=== PATIENT | male | born 1945 | race Caucasian/White ===

== ENCOUNTER → 2019-11-29 10:35 | Outpatient (BNVA) | payer MEDICARE, SELFPAY | PROVIDERS: PCP Nurse Practitioner Family; Visit Provider Family Medicine | DX: G20 Parkinson's disease (principal); G47.00 Insomnia, unspecified; J44.9 Chronic obstructive pulmonary disease, unspecified; I10 Essential (primary) hypertension; K21.9 Gastro-esophageal reflux disease without esophagitis | CPT/HCPCS: 80053; 80061; 85025 ==

== ENCOUNTER → 2020-05-28 11:42 | Outpatient (BNVA) | payer MEDICARE, SELFPAY | PROVIDERS: PCP Nurse Practitioner Family; Visit Provider Family Medicine | DX: E78.5 Hyperlipidemia, unspecified (principal); I10 Essential (primary) hypertension | CPT/HCPCS: 80053; 80061; 84443; 85025 ==

== ENCOUNTER → 2020-09-22 09:02 | Outpatient (BNVA) | payer MEDICARE, SELFPAY | PROVIDERS: PCP Nurse Practitioner Family; Visit Provider Nurse Practitioner Family | DX: Z20.828 Contact with and (suspected) exposure to other viral communicable diseases (principal) | CPT/HCPCS: 87635 ==

== ENCOUNTER → 2020-10-06 09:35 | Outpatient (BNVA) | payer MEDICARE, SELFPAY | PROVIDERS: PCP Nurse Practitioner Family; Visit Provider Family Medicine | DX: E78.2 Mixed hyperlipidemia (principal); I10 Essential (primary) hypertension; K21.9 Gastro-esophageal reflux disease without esophagitis | CPT/HCPCS: 80053; 80061; 84443; 85025 ==

== ENCOUNTER → 2021-02-10 10:58 | Outpatient (BNVA) | payer MEDICARE, SELFPAY | PROVIDERS: PCP Nurse Practitioner Family; Visit Provider Family Medicine | DX: J44.9 Chronic obstructive pulmonary disease, unspecified (principal); E78.2 Mixed hyperlipidemia; I10 Essential (primary) hypertension; Z86.79 Personal history of other diseases of the circulatory system | CPT/HCPCS: 80053; 80061; 84443 ==

== ENCOUNTER 2021-04-24 09:28 | Outpatient (CLI) | payer MEDICARE, SELFPAY ==
--- NOTE | 2021-04-24 10:22 | PC.NURSE ---
not able to complete stress test due to pt eating and a cup of coffee today. contacting scheduling for new date
--- NOTE | 2021-04-24 12:45 | USCV_ITS ---
Gely Tino Age: 75 Gender: M : 1945 Exam Date: 04/24/2021 10:23 Ordering Phys: Burak Vega MD ([email or web address]) Technologist: Amelie Jaeger Exam Location: [facility] [place] Indication: chest pain BP: 130 / 74 HR: 71 Rhythm: Sinus Technical Quality: Adequate MEASUREMENTS (Male / Female) Normal Values 2D ECHO LV Diastolic Diameter PLAX 4.8 cm 4.2 - 5.9 / 3.9 - 5.3 cm LV Systolic Diameter PLAX 3.5 cm IVS Diastolic Thickness 1.8 cm 0.6 - 1.0 / 0.6 - 0.9 cm IVS Systolic Thickness 2.6 cm LVPW Diastolic Thickness 1.5 cm 0.6 - 1.0 / 0.6 - 0.9 cm LVPW Systolic Thickness 1.7 cm LVOT Diameter 2.0 cm LV Ejection Fraction 2D Teich 54.1 % LV Ejection Fraction MOD 2C 59.4 % LV Ejection Fraction 2C AL 59.1 % LA Diameter 3.5 cm LA Width 3.4 cm LA Height 5.1 cm RA Width 4.1 cm RA Height 4.5 cm Aorta at Sinotubular Diameter 3.0 cm M-MODE Aortic Annulus Diameter 2.8 cm LA Ao Ratio MM 1.3 MV E Point Septal Separation 0.3 cm DOPPLER AV Peak Velocity 156.0 cm/s LVOT Peak Velocity 116.0 cm/s AV Area Cont Eq vti 2.4 cm squared AV Area Cont Eq pk 2.3 cm squared MV Peak Velocity 120.0 cm/s MV Area PHT 4.6 cm squared Mitral E to A Ratio 0.9 MV E' Velocity 39.5 cm/s Mitral E to MV E' Ratio 9.7 Mitral E to LV E' Lateral Ratio 10.8 Mitral E to LV E' Septal Ratio 9.0 TR Peak Velocity 287.6 cm/s TR Peak Gradient 33.1 mmHg TR Mean Velocity 236.3 cm/s TR Mean Gradient 23.6 mmHg TR Velocity Time Integral 90.6 cm TV Peak E Velocity 53.0 cm/s Right Atrial Pressure 3.0 mmHg Pulmonary Artery Systolic Pressu 36.1 mmHg PV Peak Velocity 78.0 cm/s RV Acceleration Time 0.1 s RV Ejection Time 0.3 s RV AcT/ET 0.2 FINDINGS Left Ventricle Normal left ventricular size and systolic function, EF 59 %. Mild left ventricular hypertrophy. No regional wall motion abnormalities. Grade I/IV diastolic dysfunction (abnormal relaxation filling pattern), normal to mildly elevated filling pressures. Right Ventricle The right ventricle is normal in size and function. Right Atrium The right atrium is normal in size. Left Atrium The left atrium is normal in size. Mitral Valve No gross abnormalities noted Aortic Valve No gross abnormalities noted Tricuspid Valve Trace tricuspid valve regurgitation. Estimated pulmonary artery peak systolic pressure was 36 mmHg Pulmonic Valve Pulmonic valve not well visualized. Pericardium Normal pericardium without effusion. Aorta Normal ascending aorta dimension. CONCLUSIONS Normal left ventricular size and systolic function, EF 59 %. Mild left ventricular hypertrophy. No regional wall motion abnormalities. Grade I/IV diastolic dysfunction (abnormal relaxation filling pattern), normal to mildly elevated filling pressures. Trace tricuspid valve regurgitation. Estimated pulmonary artery peak systolic pressure was 36 mmHg. There is no significant pericardial effusion. There are no intracardiac masses. No previous study is available for comparison. Dr Burak Vega MD [facility] (Electronically Signed) Final Date: 24 April 2021 15:46 S
== END 2021-04-24 09:29 | disposition home or self-care (01) ==
LOC: CDL 09:30
PROVIDERS: PCP Family Medicine; Visit Provider Internal Medicine Cardiovascular Disease
DX: Z86.79 Personal history of other diseases of the circulatory system (principal); R06.02 Shortness of breath; R53.83 Other fatigue; I07.1 Rheumatic tricuspid insufficiency
CPT/HCPCS: 93306

== ENCOUNTER 2021-05-01 06:32 | Outpatient (CLI) | payer MEDICARE, SELFPAY ==
[2021-05-01 06:54] VITALS: BMI 32.1
--- NOTE | 2021-05-01 07:09 | NMCV_ITS ---
NM ganesh perf SPECT r/s* [id number] Tino Hong Age: 75 Gender: M : 1945 Exam Date: 05/01/2021 07:52 Ordering Phys: Burak Vega MD ([email or web address]) Technologist: YASEMIN Beckman Exam Location: [facility] [place] Indications: SHORTNESS OF BREATH FATIGUE STRESS TEST Please see separate stress test report in [facility] for full findings IMAGE PROTOCOL Rest/Stress 1 Exercise Day Radiopharmaceutical Dose (mCi) Administration Site Administered by Rest: Tc-99m 11.0 IV YASEMIN Rodriguez Sestamibi Stress:Tc-99m 32.9 IV YASEMIN Rodriguez Sestamibi Rest: 05/01/2021 60 Discovery 630 Stress: 05/01/2021 15 Discovery 630 Radiopharmaceutical was injected at 91 % maximum heart rate. Images obtained in supine and prone position. SPECT RESULTS Technical Quality: Excellent Raw Data Analysis: Normal Image Corrections: No attenuation or motion correction applied Summed Stress Score: 1 Summed Rest Score: 5 Summed Difference Score: 0 PERFUSION FINDINGS Small areas of decreased tracer uptake were noted in the inferior, inferolateral and apical regions. No significant reversibility was noted in these regions. FUNCTIONAL RESULTS (calculated via Gated SPECT) Stress Image LV EF (%): 76 Stress EDV (mL):84 TID: 0.79 Stress ESV (mL):20 FUNCTIONAL FINDINGS: Segmental wall motion analysis revealing no gross wall motion abnormalities IMPRESSIONS 1. Myocardial perfusion imaging revealing small areas of persistent decreased tracer uptake in the inferior, inferolateral and apical regions suggestive of myocardial scarring versus attenuation artifact 2. Normal LV ejection fraction 76%. 3. LV wall motion analysis revealing no gross wall motion normalities. 4. Normal LV volume. No significant coronary ischemia, based on the above findings Dr Burak Vega MD [facility] (Electronically Signed) Final Date: 01 May 2021 18:02 S
--- NOTE | 2021-05-01 07:09 | ECG_ITS ---
[facility] Test Date: 2021-05-01 Pat Name: Tino Hong Department: Room: Gender: Male Hospice Community Liaison: : 1945 Requested By: Burak Vega Order Number: [id number] Jose A MD: Burak Vega M.D. Interpretive Statements NAME OF STUDY: EXERCISE SESTAMIBI STRESS TEST INDICATION: Sob/fatigue, PROCEDURE: The baseline electrocardiogram showed normal sinus rhythm with normal ST-Ts poor R wave progression. Nonspecific T wave changes. Minimal left axis deviation. At the baseline, the patient's blood pressure was 43/89 mm Hg with a heart rate of 77. The patient exercised for 4 minutes and 45 seconds on a standard Hieu protocol. Patient attained a maximum heart rate of 142 beats per minute( 97 % of the maximum predicted heart rate) with a blood pressure at the peak exercise of 212/81 mm Hg. The EKG at the peak exercise revealed no significant changes. Patient did not have any chest pain or any significant arrhythmis with the exercise Sestamibi was injected 1 minute prior to the peak exercise During the recovery phase, there were no new changes. Blood pressure at the end of the recovery phase was 197/71 mm Hg with a heart rate of 88 per minute. CONCLUSION: 1. No significant EKG changes with the [treadmill exercise 2. No exercise-induced chest pain or cardiac arrhythmia 3. Impaired exercise tolerance, attained a maximum of 7.0 METs 4. Sestamibi/Sestamibi perfusion results pending; see separate report. Electronically Signed On 05-01-2021 19:15:06 CDT by Burak Vega M.D. [id number]
[2021-05-01 08:48] VITALS: BP 160/78; PULSE 80
== END 2021-05-01 06:33 | disposition home or self-care (01) ==
LOC: CDL 06:38
PROVIDERS: PCP Family Medicine; Visit Provider Internal Medicine Cardiovascular Disease
DX: R06.02 Shortness of breath (principal); R53.83 Other fatigue
CPT/HCPCS: 78452; 93017; A9500

== ENCOUNTER → 2021-05-11 08:55 | Outpatient (BNVA) | payer MEDICARE, SELFPAY | PROVIDERS: PCP Family Medicine; Visit Provider Family Medicine | DX: J30.1 Allergic rhinitis due to pollen (principal); J45.50 Severe persistent asthma, uncomplicated | CPT/HCPCS: 82785; 85025 ==

== ENCOUNTER → 2022-02-10 08:44 | Outpatient (BNVA) | payer MEDICARE, SELFPAY | PROVIDERS: PCP Family Medicine; Visit Provider Family Medicine | DX: I10 Essential (primary) hypertension (principal); E78.2 Mixed hyperlipidemia; K21.9 Gastro-esophageal reflux disease without esophagitis; G20 Parkinson's disease; J44.9 Chronic obstructive pulmonary disease, unspecified; Z12.5 Encounter for screening for malignant neoplasm of prostate | CPT/HCPCS: 80053; 80061; 84443; 85025; G0103 ==

== ENCOUNTER 2022-09-21 06:00 | Outpatient (RCR) | payer MEDICARE, SELFPAY | END 2022-10-12 23:59 | disposition home or self-care (01) | LOC: TPT 06:00 | PROVIDERS: PCP Family Medicine; Visit Provider Orthopaedic Surgery | DX: M17.12 Unilateral primary osteoarthritis, left knee (principal) | CPT/HCPCS: 97110; 97163 ==

== ENCOUNTER 2022-10-13 06:00 | Outpatient (RCR) | payer MEDICARE, SELFPAY | END 2022-11-09 23:59 | disposition home or self-care (01) | LOC: TPT 06:00 | PROVIDERS: PCP Family Medicine; Visit Provider Orthopaedic Surgery | DX: M17.12 Unilateral primary osteoarthritis, left knee (principal) | CPT/HCPCS: 97110 ==

== ENCOUNTER 2022-11-10 06:00 | Outpatient (RCR) | payer MEDICARE, SELFPAY | END 2022-12-10 23:59 | disposition home or self-care (01) | LOC: TPT 06:00 | PROVIDERS: PCP Family Medicine; Visit Provider Orthopaedic Surgery | DX: M17.12 Unilateral primary osteoarthritis, left knee (principal) | CPT/HCPCS: 97110; 97164 ==

== ENCOUNTER → 2022-11-19 10:22 | Outpatient (BNVA) | payer MEDICARE, SELFPAY | PROVIDERS: PCP Family Medicine; Visit Provider Family Medicine | DX: G20 Parkinson's disease (principal); R29.6 Repeated falls; E78.2 Mixed hyperlipidemia; I10 Essential (primary) hypertension; K21.9 Gastro-esophageal reflux disease without esophagitis | CPT/HCPCS: 80053; 80061; 84443; 85025 ==

== ENCOUNTER 2022-12-06 06:00 | Outpatient (RCR) | payer MEDICARE, SELFPAY | END 2022-12-10 23:59 | disposition home or self-care (01) | LOC: SPT 06:00 | PROVIDERS: PCP Family Medicine; Visit Provider Family Medicine | DX: R42 Dizziness and giddiness (principal); R29.6 Repeated falls | CPT/HCPCS: 95992; 97161 ==

== ENCOUNTER 2022-12-11 06:00 | Outpatient (RCR) | payer MEDICARE, SELFPAY | END 2023-01-09 23:59 | disposition home or self-care (01) | LOC: SPT 06:00 | PROVIDERS: PCP Family Medicine; Visit Provider Family Medicine | DX: R42 Dizziness and giddiness (principal); H81.12 Benign paroxysmal vertigo, left ear | CPT/HCPCS: 97110 ==

== ENCOUNTER 2022-12-11 06:00 | Outpatient (RCR) | payer MEDICARE, SELFPAY | END 2023-01-09 23:59 | disposition home or self-care (01) | LOC: TPT 06:00 | PROVIDERS: PCP Family Medicine; Visit Provider Orthopaedic Surgery | DX: M17.12 Unilateral primary osteoarthritis, left knee (principal) | CPT/HCPCS: 97110 ==

== ENCOUNTER → 2023-02-10 11:33 | Outpatient (BNVA) | payer MEDICARE, SELFPAY | PROVIDERS: PCP Family Medicine; Referring Provider Family Medicine; Visit Provider Orthopaedic Surgery | DX: M54.50 Low back pain, unspecified (principal); M48.062 Spinal stenosis, lumbar region with neurogenic claudication | CPT/HCPCS: 72110; 99204 ==

== ENCOUNTER 2023-02-18 13:27 | Emergency (ER) | payer MEDICARE, SELFPAY ==
[2023-02-18] VITALS (7 sets, daily range): BP systolic 109–138; BP diastolic 52–88; PULSE 72–81; RESP 18; TEMP 36.3; O2SAT 92–98; BMI 30.7
--- NOTE | 2023-02-18 15:32 | PC.NURSE ---
WHILE IN LOBBY SPEAKING WITH PT. PT IS IN NAD. UPDATED HIM ON DELAYS AND COURSE OF CARE.
--- NOTE | 2023-02-18 16:59 | XRR_ITS ---
PROCEDURE INFORMATION: Exam: XR Lumbosacral Spine Exam date and time: 02/18/2023 5:07 PM Age: 77 years old Clinical indication: Injury or trauma; Fall; Other: Pain; Additional info: Lbp, failed surgeries, multiple recent falls TECHNIQUE: Imaging protocol: Radiologic exam of the lumbosacral spine. Views: 2 or 3 views. COMPARISON: CR XR lumbar spine min 4V [id number] 02/10/2023 11:38 AM FINDINGS: Bones/joints: There are extensive degenerative changes in the lumbar spine with narrowing of all of the intervertebral disc spaces and prominent anterior and left lateral osteophytes. There is mild scoliosis concave to the left in the lower lumbar spine. Degenerative osteophytes are also seen anteriorly and laterally in the lower thoracic spine. No acute fracture is demonstrated. Compared with 02/10/2023, findings are not significantly changed. Soft tissues: Unremarkable. Vasculature: There is atherosclerotic calcification of the abdominal aorta without evidence of aneurysm. XR/XR lumbar spine 2-3V* [id number] IMPRESSION: Degenerative changes. No acute fracture is identified.
--- NOTE | 2023-02-18 17:02 | ED_ITS ---
HPI - Fall General: Chief Complaint: Fall Stated Complaint: 3 falls today, back and left side issues Time Seen by Provider: 02/18/23 16:38 History of Present Illness: Patient presents to the ER with complaints of multiple falls today. Patient had left leg weakness worsening over the last week. Patient has been evaluated by Dr. ALEJANDRA and has an MRI scheduled in approximately 2 weeks. Patient has worsening low back pain that radiates down into his left leg all the way to his toes with numbness and tingling. Patient states his leg is weak and causing him to fall worse than normal. Patient denies any complaints anywhere else other than just normal achiness MD complaint: fall Onset (ago): week(s) Fall from: standing Fall witnessed: yes, by family Place fall occurred: home Loss of consciousness: None Context: tripped/slipped Review of Systems General: Reports: 10 or more systems reviewed and unremarkable except in HPI and below PFSH ED PFSH: Medical History COPD (chronic obstructive pulmonary disease) GERD (gastroesophageal reflux disease) Hyperlipidemia Hypertension Surgical History History of back surgery Family History Father CAD (coronary artery disease) Hypertension Sister CAD (coronary artery disease) Denies family history of Diabetes Clotting disorder Dementia Chronic kidney disease (CKD) Suicide Anesthesia complication Bleeding disorder Lung disease Cancer Stroke Social History Smoking and tobacco status: former smoker Alcohol intake: never Substance/Drug Use: never Lives independently: No Household members: spouse Marital status: Special abbe needs: No Physical Exam Const: COMMON NORMALS: no acute distress, average body habitus, patient oriented x3, no limitations, healthy appearing, alert and well nourished HENMT: COMMON NORMALS: normocephalic, atraumatic, hearing grossly normal bilaterally, external ears normal, Normal external nose present and moist oral mucous membranes HEAD & SCALP: normocephalic and atraumatic NOSE: Normal external nose present EXTERNAL EAR: Yes external ears normal Eye: COMMON NORMALS: Equal, round and reactive pupils present, EOMs intact bilaterally, conjunctivae normal and no scleral icterus CONJUNCTIVA: Yes conjunctivae normal PUPIL: Yes Equal, round and reactive pupils present Neck/C-Spine: COMMON NORMALS: full ROM, no lymphadenopathy, supple, no meningeal signs, no JVD and Thyroid normal THYROID: Thyroid normal Lymph: LYMPHATIC: no lymphadenopathy noted Chest: COMMONS NORMALS: normal inspection of the chest and normal palpation of entire chest wall Resp: COMMON NORMALS: normal respiratory effort, No retractions, No use of accessory muscles and clear to auscultation bilaterally AUSCULTATION: clear to auscultation bilaterally Cardio: COMMON NORMALS: no JVD, regular rate, regular rhythm, S1 normal heart sound present, S2 normal heart sound present, No gallops present (Cardio), No clicks present (Cardio), No murmurs present (Cardio) and No rub (Cardio) RATE: regular rate RHYTHM: regular rhythm HEART SOUNDS: S1 normal heart sound present and S2 normal heart sound present GI: COMMON NORMALS: Normal to inspection, nondistended, normoactive bowel sounds present, Soft to palpation, non-tender, No hepatosplenomegaly present and no masses PALPATION: Yes Soft to palpation and Yes No hepatosplenomegaly present : COMMON NORMALS: Yes no CVA tenderness BLADDER/KIDNEY EXAM: Yes no CVA tenderness Back/Pelvis: COMMON NORMALS: no CVA tenderness Neuro: COMMON NORMALS: patient oriented x3 SENSORIUM/ORIENTATION: Yes alert MENINGEAL SIGNS: Yes no meningeal signs Course Vital Signs: Vital signs: Vital Signs Temperature 97.3 F L 02/18/23 13:48 Pulse Rate 76 02/18/23 16:40 Respiratory Rate 18 02/18/23 13:48 Blood Pressure 121/52 02/18/23 17:00 Pulse Oximetry 92 02/18/23 17:00 Oxygen Delivery Me thod Room Air 02/18/23 16:40 MDM - Fall Medical Decision Making Patient presents with low back pain weakness of the left lower extremity and frequent falls. Patient is seen Dr. Schwartz and the orthopedic doc and has an MRI scheduled. Patient has fell multiple times over the last several days. Patient has [place] at home but he is afraid to take that because it makes him little disoriented and confused. Patient said he got relief when he was on a course of prednisone. X-rays were obtained which does show degenerative changes no acute fractures. Patient was given Toradol IM and Flexeril p.o. and he said he has moderate pain relief. Patient will be discharged home on tramadol and Flexeril and told to follow back up with Dr. Alejandra and have the MRI as previously scheduled. Medical Records I reviewed the patient's medical records. Lab Data I reviewed the patient's lab results. Radiology Impressions Lumbar Spine X-Ray 02/18/23 16:59 IMPRESSION: Degenerative changes. No acute fracture is identified. Discharge Plan Discharge Patient Disposition: Home Clinical Impression: Lumbar back pain with radiculopathy affecting left lower extremity Condition: Stable Prescriptions: New prednisone 50 mg tablet 50 mg PO DAILY 7 Days Qty: 7 0RF tramadol 50 mg tablet 50 mg PO Q8H PRN (Reason: pain) Qty: 20 0RF cyclobenzaprine 5 mg tablet 5 mg PO Q8H PRN (Reason: muscle spasm) Qty: 14 0RF No Action melatonin 10 mg capsule 10 mg PO DAILY Breo Ellipta 200-25 mcg/dose blister with device 1 inh inhalation DAILY Incruse Ellipta 62.5 mcg/actuation blister with device 1 inh inhalation DAILY coenzyme Q10 [Co Q-10] 200 mg capsule 200 mg PO DAILY mecobalamin (vitamin B12) 1,000 mcg tablet,disintegrating 1,000 mcg sublingual DAILY Rx Instructions: place tablet under tongue and allow to dissolve for at least30 secs before swallowing cholecalciferol (vitamin D3) 25 mcg (1,000 unit) capsule 25 mcg PO DAILY cetirizine [Zyrtec] 10 mg tablet 10 mg PO DAILY PRN carbidopa-levodopa 25-250 mg tablet 2 tab PO TID hydrocodone-acetaminophen 5-325 mg tablet 1 tab PO Q8H PRN (Reason: pain) 10 Days Qty: 30 0RF celecoxib [Celebrex] 200 mg capsule 200 mg PO BID Qty: 28 0RF Rx Instructions: hold mobic while on celebrex. tizanidine 4 mg tablet 4 mg PO .qhs PRN (Reason: muscle spasticity) Qty: 30 0RF lidocaine 4 % adhesive patch,medicated 1 patch topical BID PRN (Reason: pain) Qty: 10 1RF prednisone 20 mg tablet 20 mg PO DAILY Qty: 15 0RF Rx Instructions: 60mg on day 1,2,3 40mg on day 4,5 20mg on day 6,7 epinephrine 0.3 mg/0.3 mL auto-injector See Rx Instructions .ROUTE .COMPLEX Qty: 2 3RF Dose Instruction: injet 0.3 ML (ONE pen) INTRAMUSCULARLY every 15 MINUTES NEEDED FOR anaphylaxis. DO not exceed THREE doses PER episode Rx Instructions: injet 0.3 ML (ONE pen) INTRAMUSCULARLY every 15 MINUTES NEEDED FOR anaphylaxis. DO not exceed THREE doses PER episode albuterol sulfate 90 mcg/actuation HFA aerosol inhaler 2 puff inhalation Q6H PRN (Reason: shortness of breath or wheezing) Qty: 8.5 3RF fluticasone propionate 50 mcg/actuation spray,suspension See Rx Instructions .ROUTE .COMPLEX Qty: 16 12RF Dose Instruction: instill 2 sprays into each nostril once daily Rx Instructions: instill 2 sprays into each nostril once daily amlodipine 2.5 mg tablet See Rx Instructions .ROUTE .COMPLEX Qty: 90 0RF Dose Instruction: TAKE ONE TABLET BY MOUTH EVERY DAY Rx Instructions: TAKE ONE TABLET BY MOUTH EVERY DAY meloxicam 7.5 mg tablet See Rx Instructions .ROUTE .COMPLEX Qty: 180 0RF Dose Instruction: TAKE ONE TABLET BY MOUTH TWICE DAILY Rx Instructions: TAKE ONE TABLET BY MOUTH TWICE DAILY atorvastatin 20 mg tablet See Rx Instructions .ROUTE .COMPLEX Qty: 90 0RF Dose Instruction: TAKE ONE TABLET BY MOUTH EVERY DAY Rx Instructions: TAKE ONE TABLET BY MOUTH EVERY DAY trazodone 50 mg tablet See Rx Instructions .ROUTE .COMPLEX Qty: 90 0RF Dose Instruction: TAKE ONE TABLET BY MOUTH AT bedtime Rx Instructions: TAKE ONE TABLET BY MOUTH AT bedtime gabapentin 300 mg capsule See Rx Instructions .ROUTE .COMPLEX Qty: 90 0RF Dose Instruction: TAKE ONE CAPSULE BY MOUTH AT BEDTIME Rx Instructions: TAKE ONE CAPSULE BY MOUTH AT BEDTIME triamterene-hydrochlorothiazid 37.5-25 mg tablet See Rx Instructions .ROUTE .COMPLEX Qty: 30 5RF Dose Instruction: TAKE ONE TABLET BY MOUTH EVERY MORNING Rx Instructions: TAKE ONE TABLET BY MOUTH EVERY MORNING lisinopril-hydrochlorothiazide 20-12.5 mg tablet See Rx Instructions .ROUTE .COMPLEX Qty: 30 5RF Dose Instruction: TAKE ONE TABLET BY MOUTH EVERY DAY Rx Instructions: TAKE ONE TABLET BY MOUTH EVERY DAY omeprazole 20 mg capsule,delayed release(DR/EC) See Rx Instructions .ROUTE .COMPLEX Qty: 180 5RF Dose Instruction: TAKE ONE CAPSULE BY MOUTH twice a day Rx Instructions: TAKE ONE CAPSULE BY MOUTH twice a day Discharge Orders: Discharge ED (Routine); Ordered 02/18/23 Ordered By: Olu Qureshi Referrals: Meliza Pathak MD [Primary Care Provider] - 1 week Patient Instructions: Lumbar Radiculopathy (ED), Pain Management Activity Restrictions/Additional Instructions: Please keep your appointment with Dr. ALEJANDRA, please keep your previously scheduled MRI appointment. If your pain worsens or changes feel free to come back to the ER for further evaluation and treatment otherwise follow-up with your primary family practice doctor within 1 week. Coding Level of Care Code ED [employer] for Blanca Schmidt
[2023-02-18] MEDS: cyclobenzaprine 10 mg Tablet 5 MG PO (17:09)
[2023-02-18] MEDS: ketorolac 60 mg/2 mL INJ IM (17:10)
== END 2023-02-18 19:10 | disposition home or self-care (01) ==
PROVIDERS: Emergency Provider Emergency Medicine; PCP Family Medicine
DX: M54.16 Radiculopathy, lumbar region (principal); M54.50 Low back pain, unspecified; M62.81 Muscle weakness (generalized); R29.6 Repeated falls
CPT/HCPCS: 72100; 96372; 99284; J1885

== ENCOUNTER 2023-02-24 07:00 | Outpatient (CLI) | payer MEDICARE, SELFPAY ==
--- NOTE | 2023-02-24 07:15 | MR_ITS ---
WS: [id number] MRI LUMBAR SPINE NONCONTRAST TECHNIQUE: Sagittal T1, T2 and STIR imaging. Axial T1 and T2 imaging. CLINICAL INFORMATION: back pain COMPARISON: MRI 2009 FINDINGS: Mild lumbar curve. No acute compression. Disc bulging throughout the lumbar spine significantly progr essed compared to 2009 with progressed central canal stenosis. L1-L2: Disc bulging with small central protrusion. Moderate to severe central canal stenosis. This is worse compared to previous. Mild facet arthropathy. Mild RIGHT foraminal narrowing. L2-L3: Mild disc bulging with shallow central protrusion. Severe central canal stenosis. Mild facet a rthropathy. Mild LEFT and no significant RIGHT foraminal narrowing. L3-L4: Mild disc bulging results in severe central canal stenosis. Moderate facet arthropathy. Imping ement on the subarticular recess bilaterally. Moderate LEFT foraminal narrowing impinges the exiting LEFT L3 nerve root. L4-L5: Mild disc bulging with slight impingement traversing L5 nerve roots. Mild facet arthropathy. M ild LEFT greater than RIGHT foraminal narrowing. L5-S1: Mild disc bulging with impingement traversing RIGHT S1 nerve root. Mild facet arthropathy. Laura or RIGHT hemilaminectomy. Mild RIGHT foraminal narrowing. Visualized pelvic bony structures: Normal. Paravertebral soft tissues: Normal. Bilateral renal atrophy. T2 hyperintense lesion LEFT kidney partially evaluated measuring 4.9 CM incr eased since 2009 likely complex cyst. This can be followed up with ultrasound.. 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 This can be followed u p with cervical spine MRI. MR/MR lumbar spine wo con* [id number] IMPRESSION: 1. Mild lumbar curve. No acute compression. 2. Moderate to severe central canal stenosis L1-L2. Severe central canal steno sis L2-L3 and L3-L4 worse at L3-L4. This is new compared to previous 2009. 3. Prior RIGHT hemilaminectomy L5-S1 with slight narrowing of the RIGHT subart icular recess. 4. Mild central canal stenosis L4-L5 with narrowing of the subarticular recess . 5. Mild to moderate moderate foraminal narrowing worse at RIGHT L1-L2, LEFT L2 -L3, and RIGHT L4-L5. 6. Moderate to severe LEFT L3-L4 foraminal narrowing with impingement on the e xiting LEFT L3 nerve root. 7. Small syrinx visualized in the cervical cord at C6-T1 visualized also in 20 13. This can be followed up with cervical spine MRI. 8. Partially evaluated lesion LEFT kidney measuring 4.9 CM increased since 200 9 likely complex cyst. This can be followed up with ultrasound
== END 2023-02-24 07:01 | disposition home or self-care (01) ==
LOC: RAD 07:02
PROVIDERS: PCP Family Medicine; Visit Provider Orthopaedic Surgery
DX: M48.061 Spinal stenosis, lumbar region without neurogenic claudication (principal); M54.50 Low back pain, unspecified; Q61.8 Other cystic kidney diseases; G95.0 Syringomyelia and syringobulbia
CPT/HCPCS: 72148

== ENCOUNTER → 2023-03-01 15:06 | Outpatient (BNVA) | payer MEDICARE, SELFPAY | PROVIDERS: PCP Family Medicine; Visit Provider Orthopaedic Surgery | DX: M48.062 Spinal stenosis, lumbar region with neurogenic claudication (principal); Z01.818 Encounter for other preprocedural examination | CPT/HCPCS: 80053; 81003; 85025; 99214 ==

== ENCOUNTER 2023-03-14 09:33 | Inpatient (IN) | payer MEDICARE, SELFPAY ==
[2023-03-11 08:57] VITALS: BMI 30.4
[2023-03-14] VITALS (18 sets, daily range): BP systolic 87–138; BP diastolic 46–78; PULSE 62–99; RESP 15–18; TEMP 36.2–36.9; O2SAT 92–100
--- NOTE | 2023-03-14 | XR_ITS ---
WS: [id number] C-ARM RADIOGRAPHS LUMBAR SPINE; 5 IMAGES HISTORY: L2-L3; L3-4; L4-5 decompression COMPARISON: None available. Intraoperative imaging during decompression spinal surgery. Laminectomy defects are noted over what i s probably L3 and L4. XR/XR lumbar spine 2-3V* [id number] IMPRESSION: Intraoperative imaging during decompression surgery.
[2023-03-14] MEDS: sodium chloride 0.9% 1,000 ML 30 ML IV (06:08)
--- NOTE | 2023-03-14 06:29 | W.PM.OPSUD ---
Surgery/Procedure H&P Update DATE OF PROCEDURE: March 14, 2023 DATE H&P PERFORMED: 03/02/23 H&P UPDATE INFORMATION: I have reviewed H&P completed within last 30 days, I have examined patient prior to procedure and No changes to prior documentation PREOP DIAGNOSIS: Lumbar stenosis with neurogenic claudication PLANNED PROCEDURE: Operation Date: 03/14/23 07:00 Proposed Procedures p open decompression of L2-3 L3-4 L4-5:45651,08699,94213,M48.062(Not Applicable) - Ronny Lucio DO
[2023-03-14] MEDS: clindamycin 600 MG/50 ML PREMIX 100 MG IV ×3 (07:01→22:03)
[2023-03-14] MEDS: clindamycin 300 MG/50 ML PREMIX 100 MG IV (07:01)
[2023-03-14] MEDS: lidocaine-epi 2% 20 mL INJ INJECTION (07:37)
[2023-03-14] MEDS: vancomycin 1,000 MG SDV 1000 MG XX (07:38)
--- NOTE | 2023-03-14 08:13 | ANES.PREANE2 ---
Pre-Anesthetic Assessment Height/Weight: Height 1.8 m Weight 98.883 kg Temp Pulse Resp BP Pulse Ox O2 Del Method 97.1 F L 93 18 138/78 96 Room Air 03/14/23 06:07 03/14/23 06:07 03/14/23 06:07 03/14/23 06:07 03/14/23 06:07 03/14/23 06:09 Preop Diagnosis: Lumbar stenosis with neurogenic claudication Operation Date: 03/14/23 07:00 Proposed Procedures p open decompression of L2-3 L3-4 L4-5:40185,89308,43475,M48.062(Not Applicable) - Ronny Lucio, DO Familial anesthetic complications: none Was Beta Annette taken within 24 hours: N/A Was Clonidine taken within 24 hours: N/A Last intake: Intake Last Liquid Date 03/13/23 Last Liquid Time 17:00 Last Solid Date 03/13/23 Last Solid Time 17:00 Social No alcohol and No tobacco Exam alert, oriented x 3, clear to auscultation bilaterally and regular rate & rhythm Airway Submandibular: within normal limits Cervical ROM: Other (limited extension) Mallampati: Class III Dentition: full Pulmonary Chronic Obstructive Pulmonary Disease CV/HEM Hypertension GI Gastroesophageal Reflux Disease Metabolic Diabetes Mellitus, Hyperlipidemia and Morbid Obesity Musc/skel Lower Back Pain and Osteoarthritis/DJD Neuropsych Parkinson's Anesthetic Plan ASA status: 3 Anesthesia: General Medications/Allergies Home Medications Medication Instructions Recorded Confirmed Last Taken Type cholecalciferol (vitamin D3) 25 25 mcg PO DAILY 03/17/21 03/11/23 03/13/23 History mcg (1,000 unit) capsule coenzyme Q10 200 mg capsule (Co 200 mg PO DAILY 03/17/21 03/11/23 03/13/23 History Q-10) melatonin 10 mg capsule 10 mg PO DAILY 03/17/21 03/11/23 03/13/23 History epinephrine 0.3 mg/0.3 mL See Rx Instructions .Route 02/02/22 03/14/23 Unknown Rx injection, auto-injector .COMPLEX #2 ea carbidopa 25 mg-levodopa 250 mg 2 tab PO TID 02/10/22 03/11/23 03/14/23 05:30 History tablet albuterol sulfate 90 mcg/actuation 2 puff inhalation Q6H PRN 07/22/22 03/14/23 Unknown Rx aerosol inhaler shortness of breath or wheezing #8.5 grams fluticasone propionate 50 See Rx Instructions .Route 08/06/22 03/11/23 03/13/23 Rx mcg/actuation nasal .COMPLEX #16 grams spray,suspension triamterene 37.5 See Rx Instructions .Route 11/30/22 03/11/23 03/13/23 Rx mg-hydrochlorothiazide 25 mg tablet .COMPLEX #30 tabs lisinopril 20 See Rx Instructions .Route 12/23/22 03/11/23 03/13/23 Rx mg-hydrochlorothiazide 12.5 mg .COMPLEX #30 tabs tablet omeprazole 20 mg capsule,delayed See Rx Instructions .Route 12/23/22 03/11/23 03/13/23 Rx release .COMPLEX #180 caps tramadol 50 mg tablet 50 mg PO Q8H PRN pain #20 tabs 02/18/23 03/14/23 03/13/23 Rx amantadine HCl 100 mg capsule 100 mg PO Q8H 03/02/23 03/11/23 03/14/23 05:30 History amlodipine 2.5 mg tablet See Rx Instructions .Route 03/02/23 03/11/23 03/13/23 Rx .COMPLEX #90 tabs atorvastatin 20 mg tablet See Rx Instructions .Route 03/02/23 03/11/23 03/13/23 Rx .COMPLEX #90 tabs gabapentin 300 mg capsule See Rx Instructions .Route 03/02/23 03/11/23 03/13/23 Rx .COMPLEX #90 caps meloxicam 7.5 mg tablet See Rx Instructions .Route 03/02/23 03/11/23 03/07/23 Rx .COMPLEX #180 tabs trazodone 50 mg tablet See Rx Instructions .Route 03/02/23 03/11/23 03/13/23 Rx .COMPLEX #90 tabs Allergies Allergy/AdvReac Type Severity Reaction Status Date / Time budesonide [From Symbicort] Allergy Unknown Verified 03/14/23 06:01 formoterol [From Symbicort] Allergy Unknown Verified 03/14/23 06:01 ibuprofen [From Advil] Allergy Unknown Verified 03/14/23 06:01 iodine Allergy Unknown Verified 03/14/23 06:01 Penicillins Allergy Unknown Verified 03/14/23 06:01 Current Medications Generic Name Dose Route Start Last Admin Trade Name Emmanuel PRN Reason Stop Dose Admin Sodium Chloride 1,000 mls @ 30 mls/hr 03/14/23 06:00 03/14/23 06:08 Sodium Chloride 0.9% IV 03/15/23 05:59 30 mls/hr .Q24H YOSVANY Administration PFSH Anesthesia Medical History COPD (chronic obstructive pulmonary disease) GERD (gastroesophageal reflux disease) Hyperlipidemia Hypertension Surgical History History of back surgery Family History Father CAD (coronary artery disease) Hypertension Sister CAD (coronary artery disease) Denies family history of Diabetes Clotting disorder Dementia Chronic kidney disease (CKD) Suicide Anesthesia complication Bleeding disorder Lung disease Cancer Stroke Social History Smoking and tobacco status: former smoker Alcohol intake: never Substance/Drug Use: never Lives independently: No Household members: spouse Marital status: Special abbe needs: No Data Anesthesia Cardiac Studies: Echocardiogram 04/24/21 Sestamibi Stress Test (Cardiology) 05/01/21
--- NOTE | 2023-03-14 10:01 | PM.OP ---
Operative Report Date of procedure: March 14, 2023 Pre-op diagnosis: Preop Diagnosis Lumbar stenosis with neurogenic claudication Post-op diagnosis: same Procedure done: 1. L2/3 laminectomy with partial facetectomy 2. L3/4 laminectomy with partial facetectomy 3. L4/5 lamincetomy with partial facetectomy Surgeon: Ronny Lucio [employer] Farmworker: none Estimated blood loss (mL): 50 Procedure: 1. L2/3 laminectomy with partial facetectomy 2. L3/4 laminectomy with partial facetectomy 3. L4/5 lamincetomy with partial facetectomy Patient is brought to the procedure after undergoing anesthesia placed into the prone position. All his pressure well-padded. Patient's prepped draped normal sterile fashion. Wound was made from L2 down to the L4-5 facet joints. Subperiosteal dissection was made out to the facets. Retractors were placed tension was first brought to the L2-3 level. This was done by using high-speed bur rongeur to take down the spinous process high-speed bur to take down the lamina and thinned it out. And then the Kerrison rongeur was used to take down the lamina and medial aspect of facet joints. Ligamentum flavum was taken down from L2-L3. Once this was done bilaterally the L2 nerves were traced out the L2-3 foramen and the L3 nerve was traced around the L3 pedicle. Next tension was brought to the L3-4 level. Again the high-speed bur was used to take down the lamina of 3 and then the curved curettes Kerrison rongeurs were used to take down the remaining lamina and take down the ligamentum flavum from L3-L4 and then the nerves were traced out the L3-4 foramens. And the L4 nerves were traced around the L4 pedicle. Next there is brought to the L4-5 level again this was done by using high-speed bur taken down the lamina of L4 as well as taken down the medial aspect of the facet joints. Ligament plate was taken down from L4-L5. In the L5 nerve transfer on the L5 pedicles and the L4 nerves were traced out the L4-5 foramen. Wounds were irrigated deep drain was placed and wound was closed in layered fashion with 0 Vicryl 2-0 Vicryl and Monocryl suture. Sterile dressings were applied patient was transferred to the PACU in stable condition.
--- NOTE | 2023-03-14 10:24 | ANE.PACU2 ---
Inpatient post-anesthesia follow up: Airway intact: Yes Vital signs: Temperature 98.3 F Pulse Rate 71 Respiratory Rate 15 Blood Pressure 93/54 Pulse Oximetry 99 Oxygen Delivery Me thod Nasal Cannula Oxygen Flow Rate 2 Fraction of Inspir ed Oxygen Hydration adequate: Yes Nausea and vomiting: No Pain level: 3 Mental status: Baseline
[2023-03-14] MEDS: lactated ringers 1,000 ML 90 ML IV ×2 (10:26→21:29)
[2023-03-14] MEDS: carbidopa-levodopa 25-250mg Tablet 2 EACH PO ×2 (14:04→22:00)
[2023-03-14] MEDS: HYDROcodone-acetaminophen 5-325 mg Tablet PO ×2 (14:04→21:43)
[2023-03-14] MEDS: AMANTADINE HCL 100 MG 100 EACH PO (14:04)
[2023-03-14] MEDS: fluticasone nasal spray 16gm Btl 2 SPRAY NASAL (18:50)
[2023-03-14] MEDS: trazodone 50 mg Tablet PO (21:59)
[2023-03-14] MEDS: docusate sodium 100 mg Capsule PO (21:59)
[2023-03-14] MEDS: gabapentin 300 mg Capsule PO (22:00)
[2023-03-14] MEDS: NON-FORMULARY MEDICATION (Amantadine Hcl 100 MG) 100 EACH PO (22:01)
[2023-03-15 03:45] VITALS: BP 128/71; PULSE 78; RESP 18; TEMP 36.6; O2SAT 94
[2023-03-15] MEDS: carbidopa-levodopa 25-250mg Tablet 2 EACH PO (06:12)
[2023-03-15] MEDS: NON-FORMULARY MEDICATION (Amantadine Hcl 100 MG) 100 EACH PO (06:12)
[2023-03-15] MEDS: clindamycin 600 MG/50 ML PREMIX 100 MG IV (06:16)
[2023-03-15] MEDS: HYDROcodone-acetaminophen 5-325 mg Tablet PO (06:16)
[2023-03-15 08:00] VITALS: BP 138/78; PULSE 83; RESP 18; TEMP 36.4; O2SAT 94
[2023-03-15 08:08] VITALS: PULSE 98; RESP 16; O2SAT 98
[2023-03-15] MEDS: fluticasone nasal spray 16gm Btl 2 SPRAY NASAL (08:53)
[2023-03-15] MEDS: tamsulosin 0.4 mg Capsule PO (08:54)
[2023-03-15] MEDS: cholecalciferol (vitamin D3) 1,000 unit Tablet 1000 UNIT PO (09:24)
[2023-03-15] MEDS: lisinopril 20 mg Tablet PO (09:24)
[2023-03-15] MEDS: atorvastatin 40 mg Tablet 20 MG PO (09:24)
[2023-03-15] MEDS: docusate sodium 100 mg Capsule PO (09:24)
[2023-03-15] MEDS: pantoprazole DR 40 mg Tablet PO (09:24)
[2023-03-15] MEDS: magnesium hydroxide 30 mL UDC PO (11:50)
[2023-03-15 12:00] VITALS: BP 131/83; PULSE 95; RESP 17; TEMP 36.1; O2SAT 96
[2023-03-15 12:31] VITALS: BP 131/83; PULSE 95; RESP 17; TEMP 36.1; O2SAT 96
--- NOTE | 2023-03-16 16:03 | P.DS_ITS ---
Discharge Providers Date of Admission: 03/14/23 09:33 Date of Discharge: March 15, 2023 Attending Provider at Admission: Ronny Lucio DO Attending Provider at Discharge: Ronny Lucio DO Primary Care Provider: Meliza Pathak MD Reason for Visit Reason for Visit: M48.062 Physical Exam Urinary Catheter Management: Henry: Cath Placed During This Visit: yes, but has since been removed by the nurse Reason for Continuing Indwelling Catheter: Decision to DC Catheter Date Urinary Catheter Removed: 03/15/23 Time Urinary Catheter Discontinued: 09:30 Discharge Data Studies Completed and Pending Completed Studies During Hospitalization Category Date Time Status XR lumbar spine 2-3V* [id number] Routine Exams 03/14/23 Completed Radiology Impressions Lumbar Spine X-Ray 03/14/23 00:00 IMPRESSION: Intraoperative imaging during decompression surgery. Vitals Last Vital Signs Temp 97 F L 03/15/23 12:31 Pulse 95 03/15/23 12:31 Resp 17 03/15/23 12:31 BP 131/83 03/15/23 12:31 Pulse Ox 96 03/15/23 12:31 O2 Del Method Room Air 03/15/23 12:00 O2 Flow Rate 2 03/14/23 10:08 Discharge Plan Discharge Patient Disposition: Home Condition: Stable Prescriptions: New hydrocodone-acetaminophen 5-325 mg tablet 1 - 2 tab PO .Q4-6H Qty: 40 0RF Flomax 0.4 mg capsule 0.4 mg PO DAILY 7 Days Qty: 7 0RF Continued melatonin 10 mg capsule 10 mg PO DAILY coenzyme Q10 [Co Q-10] 200 mg capsule 200 mg PO DAILY cholecalciferol (vitamin D3) 25 mcg (1,000 unit) capsule 25 mcg PO DAILY carbidopa-levodopa 25-250 mg tablet 2 tab PO TID amantadine HCl 100 mg capsule 100 mg PO Q8H epinephrine 0.3 mg/0.3 mL auto-injector See Rx Instructions .ROUTE .COMPLEX Qty: 2 3RF Dose Instruction: injet 0.3 ML (ONE pen) INTRAMUSCULARLY every 15 MINUTES NEEDED FOR anaphylaxis. DO not exceed THREE doses PER episode Rx Instructions: injet 0.3 ML (ONE pen) INTRAMUSCULARLY every 15 MINUTES NEEDED FOR anaphylaxis. DO not exceed THREE doses PER episode albuterol sulfate 90 mcg/actuation HFA aerosol inhaler 2 puff inhalation Q6H PRN (Reason: shortness of breath or wheezing) Qty: 8.5 3RF fluticasone propionate 50 mcg/actuation spray,suspension See Rx Instructions .ROUTE .COMPLEX Qty: 16 12RF Dose Instruction: instill 2 sprays into each nostril once daily Rx Instructions: instill 2 sprays into each nostril once daily triamterene-hydrochlorothiazid 37.5-25 mg tablet See Rx Instructions .ROUTE .COMPLEX Qty: 30 5RF Dose Instruction: TAKE ONE TABLET BY MOUTH EVERY MORNING Rx Instructions: TAKE ONE TABLET BY MOUTH EVERY MORNING lisinopril-hydrochlorothiazide 20-12.5 mg tablet See Rx Instructions .ROUTE .COMPLEX Qty: 30 5RF Dose Instruction: TAKE ONE TABLET BY MOUTH EVERY DAY Rx Instructions: TAKE ONE TABLET BY MOUTH EVERY DAY omeprazole 20 mg capsule,delayed release(DR/EC) See Rx Instructions .ROUTE .COMPLEX Qty: 180 5RF Dose Instruction: TAKE ONE CAPSULE BY MOUTH twice a day Rx Instructions: TAKE ONE CAPSULE BY MOUTH twice a day atorvastatin 20 mg tablet See Rx Instructions .ROUTE .COMPLEX Qty: 90 0RF Dose Instruction: TAKE ONE TABLET BY MOUTH EVERY DAY Rx Instructions: TAKE ONE TABLET BY MOUTH EVERY DAY trazodone 50 mg tablet See Rx Instructions .ROUTE .COMPLEX Qty: 90 0RF Dose Instruction: TAKE ONE TABLET BY MOUTH AT bedtime Rx Instructions: TAKE ONE TABLET BY MOUTH AT bedtime gabapentin 300 mg capsule See Rx Instructions .ROUTE .COMPLEX Qty: 90 0RF Dose Instruction: TAKE ONE CAPSULE BY MOUTH AT BEDTIME Rx Instructions: TAKE ONE CAPSULE BY MOUTH AT BEDTIME amlodipine 2.5 mg tablet See Rx Instructions .ROUTE .COMPLEX Qty: 90 0RF Dose Instruction: TAKE ONE TABLET BY MOUTH EVERY DAY Rx Instructions: TAKE ONE TABLET BY MOUTH EVERY DAY meloxicam 7.5 mg tablet See Rx Instructions .ROUTE .COMPLEX Qty: 180 0RF Dose Instruction: TAKE ONE TABLET BY MOUTH TWICE DAILY Rx Instructions: TAKE ONE TABLET BY MOUTH TWICE DAILY tramadol 50 mg tablet 50 mg PO Q8H PRN (Reason: pain) Qty: 20 0RF Discharge Orders: Discharge Order (Routine); Ordered 03/15/23 Ordered By: Ronny Lucio Referrals: Ronny Lucio, DO [Physician] - 03/24/23 10:30 am (You follow up appointment with Dr. Lucio has been scheduled for March 24 at 10:30 am. If you have any question or need to reschedule please contact them at [phone].) Meliza Pathak MD [Primary Care Provider] - 03/22/23 3:00 pm (Your hospital follow up has been scheduled with Meliza Pathak for March 22 at 3:00 PM. If you have any questions or need to reschedule please contact them at [phone].) Discharge Diet: Advance as tolerated Discharge Activity: Limit activity as instructed Patient Instructions: Hydrocodone/Acetaminophen (By mouth), Tamsulosin (By mouth) (Flomax), Lumbar Spinal Stenosis (DC), Opioid Safety Activity Restrictions/Additional Instructions: Thank you for [facility] for your care! The following is a list of instructions, from your provider, to follow upon your discharge to ensure you have the optimal recovery from your recent injury orsurgery. Follow-up care is a srivastava part of your treatment and safety. Be sure to make and go to all appointments, and call your doctor if you are having problems. If you do not already have a follow-up appointment made, call Dr. Lucio office in the next 1-3 days to make follow up appointment for 2 weeks at [phone]. If the Henry remains we will see the patient on 03/17/2023 on the . In order to help remove the Henry. It is also a good idea to know your test results and keep a list of the medicines you take. Medications will be prescribed for you at your provider's discretion. These medications are to be used as instructed; if they are taken more often that prescribed they will not be refilled early and in most cases will not be refilled at all. > When a refill is needed,you should contact marylou kapoor 2-3 business days before your prescription runs out. Medications will NOT be refilled by parking regulation enforcement officer providers after hours! > Many pain medications contain Tylenol (Acetaminophen). Do not consume more than 4,000 mg of Tylenol per day in total with any combination ofmedications. > Pain medications can cause constipation. Please use an over the counter stool softener as directed, while taking pain medications. Consulty our local pharmacist with questions or recommendations on stool softeners. If constipation persists, contact our office or your primary care provider. > While under our care,you are not to receive pain medications or other controlled substances from any other provider unless our office is notified and approves. Any attempts to do so will result in refusal to prescribe any further pain medications and possible dismissal from our practice. ? Your wound and/or dressing should remain clean and dry for 2 days after surgery. On postoperative day 2 (48 hours after your surgery) the dressing (if present) should be removed and it is okay to shower and get the incision wet. Pad dry afterwards. No further dressing should be required from that point on. Do not put any creams or ointments on theincision > It is normal for there to be a small amount of discharge (bloody or blood tinged) present from a surgical wound for the first 1-3days. > The wound should be examined twice a day for signs of infection. Mild redness or bruising is to be expected but indications that an infection maybe starting would include; An increase in redness, swelling, or discharge, a foul odor present around the incision, and/or a fever greater than 101 ?F ? Showering is permitted, however we ask that you do not take a bath, sit in a whirlpool / Jacuzzi, or go swimming for 1 month. For only the first 2 days after surgery, lt wilt be necessary for you to cover your wound/dressing with plastic and tape to keep it dry. ? Walking is essential for the healing process after surgery. We would like you to slowly advance your walking. This should be done on rela tively flat clear ground (inside or out) or can be done on a treadmill. Remember this goal does not have to happen all at once, slowly increase your distance and duration. This can be broken into more more than one walk per day as tolerated. Patients who walk as directed after surgery rarely require Physical Therapy. In the unlikely event this issue arises your provider will direct hospital staff to make the appropriate arrangements. ? No lifting over 5 pounds {a gallon of milk) or bending/twisting until further notice. Each of these activities places an unnecessary amount of stress onto the body and can impede the delicate healing process. > Instead of bending at the waist, keep your back straight and bend at the knees. > Instead of twisting your torso, keep your back straight and turn your entire body with your feet. ? You may sleep in any position which makes you comfortable. Many patients find comfort sleeping in a reclining chair. It is not abnormal to have difficulty sleeping for the first several weeks following your surgery. We recommend trying Benadry! or Tylenol PM as directed to help with your sleeping difficulties. Both medications are over the counter and available withoutprescription. ? NO SMOKING!!! Smoking dramatically increases the probability of developing postoperative wound infections. ? Common complaints after lumbar and/or thoracic spine surgery include, but are not limited to: numbness and/or tingling in the legs, pain around the incision and surrounding tissues, muscle spasms, or stiffness of the middle to l ow back. Contact our office if these symptoms persist or if an acute change occurs. ? No driving for the first 3-5days, and not while taking narcotics [] until seen at your follow-up appointment and cleared. There are no restrictions for riding on short trips, however if you take a longer trip, arrangements should be made to make regular stops to get out of the vehicle and stretch . ? Swelling is an unfortunate event that will take place with any surgery and is the primary source of your postoperative discomfort. While walking and regular approved activities helps control inflammation, there are additional steps you can take to minimizeswelling. > Place ice over the surgical site and surrounding tissue for twenty minutes, followed by applying a low/medium heat (heating pad) for an additional twenty minutes every 1-2 hours as needed for painrelief. > You may use of over the counter anti-inflammatory medications (Ibuprofen, Motrin, Aleve, Advil, etc) as directed on the package label. These types of medicines wm significantly reduce the amount of discomfort you experience after surgery from swelling. It should be noted that if you have and allergy to any of these medications, or a history of ulcers or kidney disease you should consult you primary care provider prior to starting these medications. Discharge Attestations Time Spent in Discharge Care*: less than 30 min Quality Metrics Clinical Quality Measures [ No reported AMI, CVA or VTE this stay] Coding Level of Care Code Acute Code for Chg Fwd Diagnoses
== END 2023-03-15 12:30 | disposition home or self-care (01) | DRG 517 ==
LOC: MEDSURG 19:02
PROVIDERS: Admitting Provider Orthopaedic Surgery; PCP Family Medicine; Visit Provider Orthopaedic Surgery
PROC: 01NB0ZZ Release Lumbar Nerve, Open Approach (ICD-10-PCS; CPT 63005; principal; 2023-03-14 07:00)
DX: M48.062 Spinal stenosis, lumbar region with neurogenic claudication (principal); Z79.51 Long term (current) use of inhaled steroids; Z79.52 Long term (current) use of systemic steroids; Z79.891 Long term (current) use of opiate analgesic; J44.9 Chronic obstructive pulmonary disease, unspecified; K21.9 Gastro-esophageal reflux disease without esophagitis; E78.5 Hyperlipidemia, unspecified; I10 Essential (primary) hypertension; Z87.891 Personal history of nicotine dependence
CPT/HCPCS: 36415; 36416; 36569; 36592; 36600; 51702; 51798; 70450; 71045; 71275; 72100; 74018; 74176; 74177; 76000; 80048; 80051; 80053; 80061; 80069; 81001; 82330; 82550; 82803; 82805; 82962; 83036; 83605; 83690; 83735; 83880; 84100; 84145; 84443; 84484; 85007; 85025; 85362; 85378; 85384; 85610; 85730; 86140; 86618; 86666; 86704; 86706; 86757; 87040; 87070; 87077; 87086; 87186; 87205; 87340; 93005; 93306; 93970; 94002; 94003; 94640; 94664; 94799; 96361; 96374; 96376; 97110; 97116; 97161; 99285; C1751; C9113; J0131; J0171; J0610; J1100; J1170; J1200; J1642; J1644; J1720; J1940; J2060; J2250; J2371; J2405; J2704; J2765; J3010; J3370; J3475; J3490; J7030; J7040; J7042; J7050; J7060; J7070; J7120; P9046; Q3014; Q9967

== ENCOUNTER 2023-03-17 13:17 | Inpatient (IN) | payer MEDICARE, SELFPAY ==
[2023-03-17] VITALS (56 sets, daily range): BP systolic 68–133; BP diastolic 34–83; PULSE 98–136; RESP 12–33; TEMP 36.8–38.2; O2SAT 78–100; BMI 32.1
--- NOTE | 2023-03-17 13:27 | CT_ITS ---
WS: [id number] CT ABDOMEN PELVIS TECHNIQUE: Noncontrast CT of the abdomen and pelvis with coronal and sagittal reformatted images. CLINICAL INFORMATION: vomiting COMPARISON: None. DLP: 953.[address] scans at [facility] use at least one of these dose optimization techniques: automated e xposure control; mA and/or kV adjustment per patient size (includes targeted exams where dose is matc hed to clinical indication); or iterative reconstruction. FINDINGS: Marked distention of the stomach with air-fluid level. Moderate esophageal hiatal hernia with fluid i n the distal esophagus. Trace pleural fluid bilaterally. Bibasilar atelectasis. Fluid-filled dilated proximal small bowel with air-fluid levels in the mid abdomen extending into the pelvis. Small bowel loops measure up to 3.8 cm. Distal ileum appears decompressed. No definite focal transition point. Colon is decompressed. Sigmoid colon is decompressed. Normal noncontrast liver and gallbladder. Fatty atrophy of the pancreas. Atrophic spleen. Adrenal gla nds are normal. Atrophic kidneys bilaterally with simple LEFT renal cyst. Normal caliber abdominal ao rta. Aortic calcification. Tiny fat-containing inguinal hernia. Prostate calcification. Decompressive laminectomies in the lumbar spine L2-L4. Recent expected postoperative changes. No evid ence of retroperitoneal hematoma. CT/CT abdomen pelvis wo con [id number] IMPRESSION: 1. Markedly distended fluid-filled stomach with air-fluid level and moderate e sophageal hiatal hernia. Fluid in the distal esophagus. 2. Distended fluid-filled proximal small bowel likely due to adynamic ileus co nsidering recent surgery versus developing partial small bowel obstruction. Dis ashanti ileum appears decompressed. No definite transition point. 3. Colon appears decompressed. 4. Trace LEFT greater than RIGHT pleural fluid with bibasilar atelectasis. 5. Recent decompressive laminectomies L2-L4 with expected postoperative change s.
--- NOTE | 2023-03-17 13:34 | W.ED.NAVMDI ---
HPI - Nausea/Vomiting/Diarrhea General: Chief complaint: Nausea/Vomiting/Diarrhea Stated complaint: dehydrated Time Seen by Provider: 03/17/23 13:18 Source: patient and EMS Mode of arrival: EMS Limitations: no limitations History of Present Illness: 77-year-old male who had back surgery on Tuesday states that since then he has been able to tolerate any p.o. and has had no vomiting. He states he also has had some constipation he states he feels like he is dehydrated and is felt weak he is hypotensive here he denies any back pain denies any fevers. Associated nausea: Yes Associated symtoms: Reports nausea; Denies chest pain, dysuria or headache(s) Review of Systems Const: Denies: fever(s), chills, body aches or change in appetite Eyes: Denies: blurry vision or eye discomfort ENMT: Denies: throat pain or dental pain Card: Denies: chest pain Resp: Denies: dyspnea GI: Reports: nausea, vomiting and constipation : Denies: dysuria Musc: Denies: neck pain or back pain Skin/Breast: Denies: rash Neuro: Denies: headache(s) Psych: Denies: depression [place]/Lymph: Denies: easy bruising All/Imm: Denies: urticaria PFSH ED PFSH: Medical History COPD (chronic obstructive pulmonary disease) GERD (gastroesophageal reflux disease) Hyperlipidemia Hypertension Surgical History History of back surgery Family History Father CAD (coronary artery disease) Hypertension Sister CAD (coronary artery disease) Denies family history of Diabetes Clotting disorder Dementia Chronic kidney disease (CKD) Suicide Anesthesia complication Bleeding disorder Lung disease Cancer Stroke Social History Smoking and tobacco status: former smoker Alcohol intake: never Substance/Drug Use: never Lives independently: No Household members: spouse Marital status: Special abbe needs: No Physical Exam Const: COMMON NORMALS: patient oriented x3 HENMT: COMMON NORMALS: normocephalic and atraumatic HEAD & SCALP: normocephalic and atraumatic Eye: COMMON NORMALS: Equal, round and reactive pupils present and EOMs intact bilaterally PUPIL: Yes Equal, round and reactive pupils present Neck/C-Spine: COMMON NORMALS: full ROM and supple Chest: COMMONS NORMALS: normal inspection of the chest and normal palpation of entire chest wall Resp: COMMON NORMALS: normal respiratory effort, No retractions, No use of accessory muscles and clear to auscultation bilaterally AUSCULTATION: clear to auscultation bilaterally Cardio: COMMON NORMALS: regular rate, regular rhythm and No murmurs present (Cardio) RATE: regular rate RHYTHM: regular rhythm GI: COMMON NORMALS: Normal to inspection, nondistended, normoactive bowel sounds present, Soft to palpation, non-tender and no masses PALPATION: Yes Soft to palpation Extremity: COMMON NORMALS: normal to inspection and full ROM Neuro: COMMON NORMALS: patient oriented x3, moves all extremities and no focal motor deficits Psych: COMMON NORMALS: mental status grossly normal, Normal thought process present and cooperative THOUGHT PROCESS: Normal thought process present Skin: COMMON NORMALS: no rashes or lesions noted and no wounds GENERAL SKIN EXAM: no rashes or lesions noted Course Vital Signs: Vital signs: Vital Signs Temperature 98.3 F 03/17/23 13:19 Pulse Rate 104 H 03/17/23 14:12 Respiratory Rate 20 H 03/17/23 13:19 Blood Pressure 103/63 03/17/23 14:12 Pulse Oximetry 93 03/17/23 14:12 Oxygen Delivery Me thod Room Air 03/17/23 14:12 MDM - Nausea/Vomiting/Diarrhea Medical Decision Making Patient presents here with vomiting likely from postop likely an ileus or small bowel obstruction. CT scan did show possible small bowel obstruction versus an ileus he does have an elevated lactate along with creatinine is likely from dehydration from all the vomiting he is afebrile white count is normal no signs of any infectious cause no signs of sepsis his vital signs here were improved after IV fluids we will place an NG tube spoke to the hospitalist will admit at this time. Lab Data 03/17/23 14:02 03/17/23 14:02 Radiology Impressions Abdomen/Pelvis CT 03/17/23 13:27 IMPRESSION: 1. Markedly distended fluid-filled stomach with air-fluid level and moderate esophageal hiatal hernia. Fluid in the distal esophagus. 2. Distended fluid-filled proximal small bowel likely due to adynamic ileus considering recent surgery versus developing partial small bowel obstruction. Distal ileum appears decompressed. No definite transition point. 3. Colon appears decompressed. 4. Trace LEFT greater than RIGHT pleural fluid with bibasilar atelectasis. 5. Recent decompressive laminectomies L2-L4 with expected postoperative changes. Chest X-Ray 03/17/23 14:44 IMPRESSION: No acute findings. Laboratory Results WBC 8.6 10^3/uL (4.0-10.0) 03/17/23 14:02 RBC 4.17 10^6/uL (4.1-5.3) 03/17/23 14:02 Hgb 12.5 g/dL (11.7-16.6) 03/17/23 14:02 Hct 39.6 % (42.0-52.0) L 03/17/23 14:02 MCV 95.0 fl (80-94) H 03/17/23 14:02 MCH 30.0 pg (28.0-34.0) 03/17/23 14:02 MCHC 31.6 g/dL (30.0-36.0) 03/17/23 14:02 RDW 14.2 % (12.1-15.1) 03/17/23 14:02 Plt Count 280 10^3/cmm (130-400) 03/17/23 14:02 MPV 9.9 fL (7.4-10.4) 03/17/23 14:02 Lymph % (Auto) Not Reportable 03/17/23 14:02 [place] % (Auto) Not Reportable 03/17/23 14:02 Lymph # (Auto) Not Reportable 03/17/23 14:02 [place] # (Auto) Not Reportable 03/17/23 14:02 Total Counted 100 (0-100) 03/17/23 14:02 Atypical Lymphs % 0.0 % (0-5) 03/17/23 14:02 Absolute Neutrophils 6.6 10^3/cmm (1.4-6.5) H 03/17/23 14:02 Segmented Neutrophils 73 % 03/17/23 14:02 Abs Segm Neuts (Man) 6.3 10/cmm (1.6-7.1) 03/17/23 14:02 Band Neutrophils 4.0 % 03/17/23 14:02 Abs Band Neuts (Man) 0.3 10^3/cmm (0.0-1.2) 03/17/23 14:02 Absolute Lymphocytes 0.5 10^3/cmm (1.2-3.4) L 03/17/23 14:02 Lymphocytes (Manual) 6 % 03/17/23 14:02 Monocytes (Manual) 14.0 % 03/17/23 14:02 Absolute Monocytes 1.2 10^3/cmm (0.1-0.6) H 03/17/23 14:02 Eosinophils (Manual) 0 % 03/17/23 14:02 Absolute Eosinophils 0.0 10^3/cmm (0.0-0.7) 03/17/23 14:02 Basophils (Manual) 0.0 % 03/17/23 14:02 Absolute Basophils 0.0 10^3/cmm (0.0-0.2) 03/17/23 14:02 Metamyelocytes 2.0 % 03/17/23 14:02 Myelocytes 1.0 % 03/17/23 14:02 Platelet Estimate Normal (Normal) 03/17/23 14:02 Giant Platelets Trace 03/17/23 14:02 Polychromasia 1+ H 03/17/23 14:02 Macrocytosis 1+ H 03/17/23 14:02 Sodium 136 mmol/L (136-145) 03/17/23 14:02 Potassium 3.7 mmol/L (3.5-5.1) 03/17/23 14:02 Chloride 91 mmol/L (98-107) L 03/17/23 14:02 Carbon Dioxide 26 mmol/L (22-29) 03/17/23 14:02 Anion Gap 22.7 (5-19) H 03/17/23 14:02 BUN 36 mg/dL (8-23) H 03/17/23 14:02 Creatinine 2.8 mg/dL (0.7-1.2) H 03/17/23 14:02 GFR Calculation Not Reportable 03/17/23 14:02 Glucose 148 mg/dL (65-115) H 03/17/23 14:02 Calculated Osmolality 293 mOsm/kg (285-295) 03/17/23 14:02 Lactic Acid 5.2 mmol/L (0.5-2.2) H* 03/17/23 14:02 Calcium 10.3 mg/dL (8.5-10.5) 03/17/23 14:02 Total Bilirubin 0.8 mg/dL (0.15-1.2) 03/17/23 14:02 AST 6 U/L (0-40) 03/17/23 14:02 ALT < 5 U/L (0-41) 03/17/23 14:02 Alkaline Phosphatase 70 U/L (40-130) 03/17/23 14:02 Total Protein 6.5 g/dL (6.6-8.7) L 03/17/23 14:02 Albumin 3.5 g/dL (3.5-5.2) 03/17/23 14:02 Globulin 3.0 g/dL (1.3-4.6) 03/17/23 14:02 Lipase 18 U/L (13-60) 03/17/23 14:02 Discharge Plan Discharge Patient Disposition: Admitted As Inpatient Clinical Impression: Acute kidney injury, Vomiting, Small bowel obstruction Condition: Stable Coding Level of Care Code ED [employer] Operator for Blanca Schmidt
[2023-03-17] MEDS: ondansetron 2 mg/ML SDV 2 mL 4 MG IVP (13:38)
[2023-03-17] MEDS: sodium chloride 0.9% 1,000 ML 999 ML IV ×2 (13:38→16:17)
[2023-03-17 14:21] LABS: Hematocrit 39.6 % (42.0-52.0); Hemoglobin 12.5 g/dL (11.7-16.6); Mean Corpuscular HGB Conc 31.6 g/dL (30.0-36.0); Mean Platelet Volume 9.9 fL (7.4-10.4); Platelet Count 280 10^3/cmm (130-400); Red Blood Count 4.17 10^6/uL (4.1-5.3); Red Cell Distribution Width 14.2 % (12.1-15.1); White Blood Count 8.6 10^3/uL (4.0-10.0)
[2023-03-17 14:24] LABS: Slide Review Slide Review Perform
[2023-03-17 14:33] LABS: Alanine Aminotransferase < 5 U/L (0-41); Albumin Level 3.5 g/dL (3.5-5.2); Alkaline Phosphatase 70 U/L (40-130); Anion Gap 22.7 (5-19); Aspartate Amino Transferase 6 U/L (0-40); Blood Urea Nitrogen 36 mg/dL (8-23); Calcium 10.3 mg/dL (8.5-10.5); Carbon Dioxide 26 mmol/L (22-29); Chloride 91 mmol/L (98-107); Glucose 148 mg/dL (65-115); Lipase 18 U/L (13-60); Osmolality Calculated 293 mOsm/kg (285-295); Potassium 3.7 mmol/L (3.5-5.1); Sodium 136 mmol/L (136-145); Total Bilirubin 0.8 mg/dL (0.15-1.2); Total Protein 6.5 g/dL (6.6-8.7)
[2023-03-17 14:35] LABS: Lactic Sepsis W/Reflex 5.2 mmol/L (0.5-2.2)
--- NOTE | 2023-03-17 14:44 | ECG_ITS ---
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 Measurements Intervals [place] Rate: 98 P: 29 AR: 175 QRS: -70 QRSD: 94 T: 75 QT: 294 QTc: 377 Interpretive Statements SINUS RHYTHM WITH OCCASIONAL SUPRAVENTRICULAR PREMATURE COMPLEXES LOW QRS VOLTAGE IN PRECORDIAL LEADS [QRS DEFLECTION < 1.0 mV IN CHEST LEADS] INCOMPLETE RIGHT BUNDLE BRANCH BLOCK [90+ ms QRS DURATION, TERMINAL R IN V1/V2, 40+ ms S IN I/aVL/V4/V5/V6] LEFT ANTERIOR FASCICULAR BLOCK [QRS AXIS <= -45, QR IN I, RS IN II] POSSIBLE ANTERIOR MYOCARDIAL INFARCTION , OF INDETERMINATE AGE [30 ms Q WAVE IN V3/V4, OR R < 0.2 mV IN V4] Compared to ECG 04/17/2018 18:04:48 Low QRS voltage now present Incomplete right bundle-branch block now present Myocardial infarct finding now present Electronically Signed On 03-17-2023 15:01:46 CDT by Siddharth Jenkins M.D. [id number]
--- NOTE | 2023-03-17 14:44 | XRR_ITS ---
PROCEDURE INFORMATION: Exam: XR Chest Exam date and time: 03/17/2023 2:55 PM Age: 77 years old Clinical indication: Other: Weakness; Prior surgery; Surgery date: 6+ months; Surgery type: L spine TECHNIQUE: Imaging protocol: Radiologic exam of the chest. Views: 1 view. COMPARISON: CR XR chest 1V [id number] 04/17/2018 7:56 PM FINDINGS: Lungs: Unremarkable. No consolidation. Pleural spaces: Unremarkable. No pleural effusion. No pneumothorax. Heart/Mediastinum: Unremarkable. No cardiomegaly. Bones/joints: Unremarkable. XR/XR chest 1V portable [id number] IMPRESSION: No acute findings.
[2023-03-17 14:53] LABS: Absolute Segmented Neutrophil 6.3 10/cmm (1.6-7.1); Band Neutrophils Absolute 0.3 10^3/cmm (0.0-1.2); Eosinophils 0 %; Lymphocytes 6 %; Monocytes Absolute 1.2 10^3/cmm (0.1-0.6); Segmented Neutrophils 73 %; Total Cells Counted 100 (0-100)
[2023-03-17 14:54] LABS: Absolute Neutrophil 6.6 10^3/cmm (1.4-6.5); Giant Platelets Trace; Lymphocytes Absolute 0.5 10^3/cmm (1.2-3.4); Macrocytosis 1+; Platelet Estimate Normal (Normal); Polychromasia 1+
[2023-03-17 15:58] LABS: Reflex Lactate Order REFLEX LACTIC ORDERD
[2023-03-17 16:14] LABS: Procalcitonin 1.77 ng/mL (0-0.5); Thyroid Stimulating Hormone 0.22 uIU/mL (0.27-4.20)
[2023-03-17 16:20] LABS: Lactic Acid level (Lactate) 5.2 mmol/L (0.5-2.2)
[2023-03-17 16:25] LABS: C Reactive Protein 191.8 mg/L (0.0-4.9); Phosphorus 5.7 mg/dL (2.5-4.5)
--- NOTE | 2023-03-17 16:39 | PC.NURSE ---
Placement of the NG tube will be postponed per Dr. Granados.
--- NOTE | 2023-03-17 16:55 | PM.HP ---
Providers/Chief Complaint Primary Care Provider: Meliza Pathak MD Chief Complaint: dehydrated History of Present Illness Tino Hong is a 77 year old male with a past medical history of hypertension, COPD, hyperlipidemia, recent history of laminectomy and partial facetectomy, L2-L5 by Dr. Lucio, on Tuesday, for lumbar stenosis and neurogenic claudication, who presents [facility] due to nausea, vomiting, poor appetite, lack of stooling, decreased urination, lightheadedness, dizziness, malaise. Patient tells me that since surgery, he has had a poor appetite, he has had recurrent nausea, vomiting, which has been brown-green, inability to keep down solids and liquids, poor appetite, diffuse abdominal pain, lack of stooling, increased abdominal distention, decreased urination, no dysphagia, no odynophagia, no shortness of breath, no chest pain, no bloody or black stools, no hematemesis, he is passing gas from below, he has never had any abdominal surgeries, no history of ileus or bowel obstruction, his tells me that he has had any bowel movement since Tuesday, she did give him for laxatives yesterday without a lack of bowel movement, no new medications, he has held the meloxicam since for the last 2 weeks, no dysuria, she tells me that after surgery, he did have urinary retention requiring his Henry catheter to be put back in bed before he was discharged it was removed and he urinated, in the emergency room patient was found to have hypotension, lactic acid of 5.2 creatinine of 2.8, CT scan showed distended fluid-filled stomach with air-fluid level, fluid-filled proximal small bowel, adynamic ileus considering recent surgery versus developing partial small bowel obstruction, hospitalist team was called, during my examination, patient continued to have episodes of nausea and vomiting, blood pressures 124/73, pulse 107, respiratory 20, on room air, alert and oriented x4, following all commands, spoke to general surgery, for consultation for concerns for developing bowel obstruction, ER provider had advised me that they will place an NG tube, patient will be kept n.p.o., given elevated creatinine will be continued on IV fluids, with concerns for possible UTI will obtain UA, elevated lactic acid of 5.2 likely sec to dehydration, but concerns for underlying sepsis possible UTI, obtain UA Review of Systems Const: Reports: malaise; Denies: fever(s) or chills Eyes: Denies: change in vision Card: Denies: chest pain or palpitations Resp: Denies: dyspnea or non-productive cough GI: Reports: abdominal pain, nausea, vomiting, heartburn, constipation, bloating and belching; Denies: hematemesis, coffee ground emesis, dysphagia, diarrhea, hematochezia or melena : Reports: difficulty urinating and oliguria; Denies: flank pain, dysuria or urinary frequency Musc: Denies: neck pain or back pain Skin/Breast: Denies: rash Neuro: Reports: weakness in extremities; Denies: headache(s) Endo: Denies: polyuria or polydipsia Medications/Allergies Home Medications Medication Instructions Recorded Confirmed Last Taken Type cholecalciferol (vitamin D3) 25 25 mcg PO DAILY 03/17/21 03/17/23 03/16/23 History mcg (1,000 unit) capsule coenzyme Q10 200 mg capsule (Co 200 mg PO DAILY 03/17/21 03/17/23 03/16/23 History Q-10) melatonin 10 mg capsule 10 mg PO DAILY 03/17/21 03/17/23 03/16/23 History epinephrine 0.3 mg/0.3 mL See Rx Instructions .Route 02/02/22 03/17/23 Unknown Rx injection, auto-injector .COMPLEX #2 ea carbidopa 25 mg-levodopa 250 mg 2 tab PO TID 02/10/22 03/17/23 03/17/23 History tablet albuterol sulfate 90 mcg/actuation 2 puff inhalation Q6H PRN 07/22/22 03/17/23 Unknown Rx aerosol inhaler shortness of breath or wheezing #8.5 grams fluticasone propionate 50 See Rx Instructions .Route 08/06/22 03/17/23 03/16/23 Rx mcg/actuation nasal .COMPLEX #16 grams spray,suspension amantadine HCl 100 mg capsule 100 mg PO Q8H 03/02/23 03/17/23 03/16/23 History hydrocodone 5 mg-acetaminophen 325 1 - 2 tab PO .Q4-6H #40 tabs 03/15/23 03/17/23 Unknown Rx mg tablet tamsulosin 0.4 mg capsule (Flomax) 0.4 mg PO DAILY 7 days #7 caps 03/15/23 03/17/23 03/16/23 Rx amlodipine 2.5 mg tablet 2.5 mg PO DAILY 03/17/23 03/17/23 03/16/23 History atorvastatin 20 mg tablet 20 mg PO DAILY 03/17/23 03/17/23 03/16/23 History gabapentin 300 mg capsule 300 mg PO BEDTIME 03/17/23 03/17/23 03/16/23 History lisinopril 20 1 tab PO DAILY 03/17/23 03/17/23 03/16/23 History mg-hydrochlorothiazide 12.5 mg tablet meloxicam 7.5 mg tablet 7.5 mg PO BID 03/17/23 03/17/23 03/16/23 History omeprazole 20 mg capsule,delayed 20 mg PO BID 03/17/23 03/17/23 03/16/23 History release trazodone 50 mg tablet 50 mg PO BEDTIME 03/17/23 03/17/23 03/16/23 History triamterene 37.5 1 tab PO DAILY 03/17/23 03/17/23 03/16/23 History mg-hydrochlorothiazide 25 mg tablet Allergies Allergy/AdvReac Type Severity Reaction Status Date / Time budesonide [From Symbicort] Allergy Unknown Verified 03/17/23 16:01 formoterol [From Symbicort] Allergy Unknown Verified 03/17/23 16:01 ibuprofen [From Advil] Allergy Unknown Verified 03/17/23 16:01 iodine Allergy Unknown Verified 03/17/23 16:01 Penicillins Allergy Unknown Verified 03/17/23 16:01 PFSH Acute PFSH: Medical History COPD (chronic obstructive pulmonary disease) GERD (gastroesophageal reflux disease) Hyperlipidemia Hypertension Surgical History History of back surgery Family History Father CAD (coronary artery disease) Hypertension Sister CAD (coronary artery disease) Denies family history of Diabetes Clotting disorder Dementia Chronic kidney disease (CKD) Suicide Anesthesia complication Bleeding disorder Lung disease Cancer Stroke Social History Smoking and tobacco status: former smoker Alcohol intake: never Substance/Drug Use: never Lives independently: No Household members: spouse Marital status: Special abbe needs: No Vitals/I&O/Wt Last Vital Signs Temp 98.3 F 03/17/23 13:19 Pulse 107 H 03/17/23 16:30 Resp 20 H 03/17/23 13:19 BP 124/73 03/17/23 16:30 Pulse Ox 98 03/17/23 16:30 O2 Del Method Room Air 03/17/23 16:30 03/17/23 03/17/23 03/17/23 06:59 14:59 22:59 Intake Total 1000 / 1000 Balance 1000 / 1000 Weight last 48 hrs Weight 104.326 kg Physical Exam Const: COMMON NORMALS: no acute distress and patient oriented x3 HENMT: COMMON NORMALS: normocephalic Eye: COMMON NORMALS: Equal, round and reactive pupils present and EOMs intact bilaterally Neck/C-Spine: COMMON NORMALS: full ROM Lymph: LYMPHATIC: no lymphadenopathy noted Chest: COMMONS NORMALS: normal inspection of the chest Resp: COMMON NORMALS: normal respiratory effort, No retractions, No use of accessory muscles and clear to auscultation bilaterally AUSCULTATION: clear to auscultation bilaterally Cardio: COMMON NORMALS: regular rate, regular rhythm, S1 normal heart sound present and S2 normal heart sound present RATE: regular rate RHYTHM: regular rhythm HEART SOUNDS: S1 normal heart sound present and S2 normal heart sound present GI: OTHER: Abdomen is soft, distended, diffuse decreased bowel sounds, no guarding, no rebound, no rigidity, diffuse tenderness, in all 4 quadrants, : COMMON NORMALS: Yes no CVA tenderness Extremity: COMMON NORMALS: no pedal edema Neuro: COMMON NORMALS: patient oriented x3, CN's II-XII intact bilaterally and moves all extremities Psych: COMMON NORMALS: mental status grossly normal Skin: NARRATIVE SKIN EXAM: Surgical site, lower lumbar spine, with surgical pad on top, looks clean and dry Sepsis: Is patient septic: No Focused sepsis exam performed: Yes Focused sepsis exam: DP PT pulses bilateral palpable, cap refill less than 3 seconds, no mottling present, mild pallor, patient is tachycardic, heart rates 104, normal sinus rhythm Date exam was performed: 03/17/23 Time exam was performed: 17:11 Data 03/17/23 14:02 03/17/23 14:02 Micro: Microbiology 03/17/23 15:10 Blood Culture - Preliminary Blood SPECIMEN COLLECTED 03/17/23 15:03 Blood Culture - Preliminary Blood SPECIMEN COLLECTED A&P Assessment and plan (1) Acute kidney injury: (2) Vomiting: (3) Small bowel obstruction: (4) Lactic acidosis: (5) Dehydration: (6) COPD (chronic obstructive pulmonary disease): Qualifiers: COPD type: unspecified COPD Qualified Code(s): J44.9 - Chronic obstructive pulmonary disease, unspecified (7) Hyperlipidemia: Qualifiers: Hyperlipidemia type: mixed hyperlipidemia Qualified Code(s): E78.2 - Mixed hyperlipidemia (8) Hypertension: Qualifiers: Hypertension type: essential hypertension Qualified Code(s): I10 - Essential (primary) hypertension (9) Hypotension: (10) GERD (gastroesophageal reflux disease): Qualifiers: Esophagitis presence: without esophagitis Qualified Code(s): K21.9 - Gastro-esophageal reflux disease without esophagitis (11) Goals of care, counseling/discussion: Plan Ileus versus small bowel obstruction CT scan 1.? Markedly distended fluid-filled stomach with air-fluid level and moderate esophageal hiatal hernia. Fluid in the distal esophagus. 2.? Distended fluid-filled proximal small bowel likely due to adynamic ileus considering recent surgery versus developing partial small bowel obstruction. Distal ileum appears decompressed. No definite transition point. Plan -Keep n.p.o. -NG tube being placed in the emergency room -Serial abdominal exams -Monitor lactic acid -Telemetry monitoring -Kaylyn Reglan for nausea -IV fluids -Morphine for pain Lactic acidosis -5.2 -Possibly secondary to dehydration -Possibly secondary to sepsis? Possible urine as a source awaiting UA, elevated CRP, Pro-Valdo, will consider antibiotic treatments based upon UA findings -He has had back surgery recently, but no complaints of back pain, no fevers, no chills we will consider imaging based on clinical progress -CRP 191.8, Pro-Valdo 1.77, obtain blood cultures, urine cultures -Chest x-ray no focal pneumonia or infiltrates -Bicarb within normal limits -Anion gap 22 -UA pending, with history of urinary retention -Monitor lactic acid Dehydration, IV fluids Intractable nausea, vomiting as above Acute kidney injury, creatinine 2.8, monitor urine output, will consider Henry catheter, IV fluids Recent history of back surgery, L2-L5 laminectomy, no current complaints of back pain no fevers, no chills Hypotension, fluid responsive, continue IV fluids, trend lactic acids CODE STATUS full code, goals of care discussion, full code Lovenox for DVT prophylaxis Spoke to ER physician, spoke to general surgery, spoke to nursing staff Attestations Medical Necessity Statement*: Patient requires hospitalization due to concerns for bowel obstruction, versus ileus, dehydration, DELTA, hypotension, intractable nausea, vomiting, inpatient, greater than 2 midnights Diagnoses Acute kidney injury N17.9 Vomiting R11.10 Small bowel obstruction K56.609 Lactic acidosis E87.20 Dehydration E86.0 COPD (chronic obstructive pulmonary disease) J44.9 COPD type: unspecified COPD Hyperlipidemia E78.2 Hyperlipidemia type: mixed hyperlipidemia Hypertension I10 Hypertension type: essential hypertension Hypotension I95.9 GERD (gastroesophageal reflux disease) K21.9 Esophagitis presence: without esophagitis Goals of care, counseling/discussion Z71.89
[2023-03-17 17:30] LABS: Creatine Phosphokinase 55 U/L (39-308)
[2023-03-17] MEDS: dextrose 5%-sod chloride 0.9% 1,000 ML 100 ML IV (18:13)
[2023-03-17] MEDS: metoclopramide 5 mg/mL SDV 2 mL IVP (18:23)
--- NOTE | 2023-03-17 19:08 | XRR_ITS ---
PROCEDURE INFORMATION: Exam: XR Chest Exam date and time: 03/17/2023 7:10 PM Age: 77 years old Clinical indication: Shortness of breath; Additional info: SOB ngt placement TECHNIQUE: Imaging protocol: Radiologic exam of the chest. Views: 1 view. COMPARISON: CR XR chest 1V portable [id number] 03/17/2023 2:55 PM FINDINGS: Tubes, catheters and devices: NGT in place, tip at gastric body. Lungs: Mild lung base atelectasis or scarring. No consolidation. Pleural spaces: Unremarkable. No pleural effusion. No pneumothorax. Heart/Mediastinum: Heart is large. Vasculature: Advanced diffuse vascular calcification noted. Bones/joints: Unremarkable. Gastrointestinal tract: Barely assessed small bowel dilation. XR/XR chest 1V portable [id number] IMPRESSION: NGT in place.
[2023-03-17] MEDS: lidocaine 2% Urojet 20 mL 40 ML TOPICAL (19:18)
--- NOTE | 2023-03-17 19:19 | P.CONIM_ITS ---
Providers/Reason For Consult Consulting Physician/Specialty*: Francois cornejo MD general surgery Reason for Consult*: ileus Requesting Physician: see below Attending Physician: Cuauhtemoc Matamoros MD Primary Care Provider: Meliza Pathak MD History of Present Illness History of Present Illness Tino Hong is a 77 year old male with laminectomies of lower back 4 days ago and had problems with urinary retention and able to get escalante out. He now can't keep even liquids down. He denies any F/C/S or hematemesis or coffee grou nds. CT shows ileus. Nurses could not get NG down left nares because of deviated septum. He may be passing small amount of flatus. Usually has BM daily but none since surgery. Not much of an appetite. Never required NG tube before. Review of Systems Narrative: Constitutional: denies rigors, singnificant weight gain, increased appetite HEENT: denies chronic cough, blurry vision, excessive tearing, eye pain, flashing lights, odynophagia, painful mastication, change in voice, change in taste, chronic sore throat, hypersalivation Heart: denies racing heart, palpitations, othropnea, PND Lungs: denies hemoptysis, pain with deep inspiration, chronic bronchitis GI: denies hematemesis, hematochezia, dysphagia, tenesmus : denies polyuria, hematuria, painful micturation Musculoskeletal: denies hemarthrosis, Muscle wasting, change in amubation Neuro: denies new onset syncope, dysesthesia, dysequilibrium, ptosis eyelid or face SKin: denies new onset hyperalgia, new rash new cyanosis Endocrine: denies new polyuria, polydipsia, polyphagia, heat intolerance, excessive energy Hem/Onc: denies new petechiae, swollen glands, new excessive epstaxis Psych: denies racing thought Medications/Allergies Home Medications Medication Instructions Recorded Confirmed Last Taken Type cholecalciferol (vitamin D3) 25 25 mcg PO DAILY 03/17/21 03/17/23 03/16/23 History mcg (1,000 unit) capsule coenzyme Q10 200 mg capsule (Co 200 mg PO DAILY 03/17/21 03/17/23 03/16/23 History Q-10) melatonin 10 mg capsule 10 mg PO DAILY 03/17/21 03/17/23 03/16/23 History epinephrine 0.3 mg/0.3 mL See Rx Instructions .Route 02/02/22 03/17/23 Unknown Rx injection, auto-injector .COMPLEX #2 ea carbidopa 25 mg-levodopa 250 mg 2 tab PO TID 02/10/22 03/17/23 03/17/23 History tablet albuterol sulfate 90 mcg/actuation 2 puff inhalation Q6H PRN 07/22/22 03/17/23 Unknown Rx aerosol inhaler shortness of breath or wheezing #8.5 grams fluticasone propionate 50 See Rx Instructions .Route 08/06/22 03/17/23 03/16/23 Rx mcg/actuation nasal .COMPLEX #16 grams spray,suspension amantadine HCl 100 mg capsule 100 mg PO Q8H 03/02/23 03/17/23 03/16/23 History hydrocodone 5 mg-acetaminophen 325 1 - 2 tab PO .Q4-6H #40 tabs 03/15/23 03/17/23 Unknown Rx mg tablet tamsulosin 0.4 mg capsule (Flomax) 0.4 mg PO DAILY 7 days #7 caps 03/15/23 03/17/23 03/16/23 Rx amlodipine 2.5 mg tablet 2.5 mg PO DAILY 03/17/23 03/17/23 03/16/23 History atorvastatin 20 mg tablet 20 mg PO DAILY 03/17/23 03/17/23 03/16/23 History gabapentin 300 mg capsule 300 mg PO BEDTIME 03/17/23 03/17/23 03/16/23 History lisinopril 20 1 tab PO DAILY 03/17/23 03/17/23 03/16/23 History mg-hydrochlorothiazide 12.5 mg tablet meloxicam 7.5 mg tablet 7.5 mg PO BID 03/17/23 03/17/23 03/16/23 History omeprazole 20 mg capsule,delayed 20 mg PO BID 03/17/23 03/17/23 03/16/23 History release trazodone 50 mg tablet 50 mg PO BEDTIME 03/17/23 03/17/23 03/16/23 History triamterene 37.5 1 tab PO DAILY 03/17/23 03/17/23 03/16/23 History mg-hydrochlorothiazide 25 mg tablet Allergies Allergy/AdvReac Type Severity Reaction Status Date / Time budesonide [From Symbicort] Allergy Unknown Verified 03/17/23 16:01 formoterol [From Symbicort] Allergy Unknown Verified 03/17/23 16:01 ibuprofen [From Advil] Allergy Unknown Verified 03/17/23 16:01 iodine Allergy Unknown Verified 03/17/23 16:01 Penicillins Allergy Unknown Verified 03/17/23 16:01 Current Medications Generic Name Dose Route Start Last Admin Trade Name Freq PRN Reason Stop Dose Admin Enoxaparin Sodium 30 mg 03/17/23 18:30 03/17/23 17:59 Enoxaparin 30 Mg/0.3 Ml Syringe SUBCUT Not Given Q24H YOSVANY Dextrose/Sodium Chloride 1,000 mls @ 100 mls/hr 03/17/23 17:50 03/17/23 18:13 Dextrose 5%-Sod Chloride 0.9% IV 100 mls/hr .Q10H YOSVANY Administration Metoclopramide HCl 5 mg 03/17/23 17:50 03/17/23 18:23 Metoclopramide 5 Mg/Ml Sdv 2 Ml IVP 5 mg Q6H PRN Administration NAUSEA AND VOMITING PFSH Acute PFSH: Medical History COPD (chronic obstructive pulmonary disease) GERD (gastroesophageal reflux disease) Hyperlipidemia Hypertension Surgical History History of back surgery Family History Father CAD (coronary artery disease) Hypertension Sister CAD (coronary artery disease) Denies family history of Diabetes Clotting disorder Dementia Chronic kidney disease (CKD) Suicide Anesthesia complication Bleeding disorder Lung disease Cancer Stroke Social History Smoking and tobacco status: former smoker Alcohol intake: never Substance/Drug Use: never Lives independently: No Household members: spouse Marital status: Special abbe needs: No Vitals/I&O/Wt Last Vital Signs Temp 98.6 F 03/17/23 17:50 Pulse 108 H 03/17/23 17:50 Resp 19 H 03/17/23 17:50 BP 133/74 07/06/23 17:50 Pulse Ox 95 03/17/23 17:50 O2 Del Method Room Air 03/17/23 17:00 03/17/23 03/17/23 03/17/23 06:59 14:59 22:59 Intake Total 1000 / 1000 999 / 1999 Balance 1000 / 999 999 / 1999 Weight last 48 hrs Weight 230 lb Physical Exam Narrative: Patient is a well developed well nourished and in NAD and is afebrile with vitals stable and is answering questions appropriately with a normal affect and is alert and oriented x3 HEENT: normocephalic with normal external ears and nonicteric, oral mucosa moist and dentition normal for age, trachea midline with no large masses visualized Heart: RRR, no gallops murmurs or rubs, normal PMI with no thrills Lungs: normal excursions, no loud audible wheezing, no subcutaneous emphysema Abdomen: very distended, no gross hepatosplenomegaly, no masses, no rigidity or rebound, no loud borborygmi Neuro: nonfocal, CURRY, grossly normal sensation Musculoskeletal: good muscle tone, no fasciculations, normal gait Skin: pink warm and dry with no rashes or ecchymosis Vascular: good radial pulses, no ulceration, less than 2 second capillary refill in hand : deferred Data 03/17/23 14:02 03/17/23 14:02 Micro: Microbiology 03/17/23 15:10 Blood Culture - Preliminary Blood SPECIMEN COLLECTED 03/17/23 15:03 Blood Culture - Preliminary Blood SPECIMEN COLLECTED A&P Assessment and plan (1) Ileus: I placed NG 16 FR in right nares and xray is pending. Keep bowel at rest. Ambulate patient to promote bowel function. He may need help walking becaause of his parkinson's disease. Clean out from below then consider cleaning out from above. Escalante for retention. He has upper airway raspiness and may have aspirated slightly even before attempting to place this NG tube. CXR pending. Coding Level of Care Code 30083 Diagnoses Ileus K56.7
[2023-03-17 20:16] LABS: Glucose Point of Care 138 mg/dL (70-110)
--- NOTE | 2023-03-17 20:16 | ECG_ITS ---
[facility] Test Date: 2023-03-17 Pat Name: Tino Hong Department: Room: [facility]08 Gender: Male Polysomnographic Tech: : 1945 Requested By: Georgette Metzger Order Number: [id number] Reading MD: Siddharth Jenkins M.D. Measurements Intervals [place] Rate: 120 P: 78 MD: 200 QRS: -79 QRSD: 84 T: 69 QT: 307 QTc: 435 Interpretive Statements SINUS TACHYCARDIA WITH OCCASIONAL VENTRICULAR PREMATURE COMPLEXES WITH OCCASIONAL SUPRAVENTRICULAR PREMATURE COMPLEXES LOW QRS VOLTAGE IN PRECORDIAL LEADS [QRS DEFLECTION < 1.0 mV IN CHEST LEADS] PATTERN CONSISTENT WITH PULMONARY DISEASE POSSIBLE RIGHT VENTRICULAR CONDUCTION DELAY [RSR (QR) IN V1/V2] Compared to ECG 03/17/2023 14:51:10 Ventricular premature complex(es) now present Sinus rhythm no longer present Incomplete right bundle-branch block no longer present Left anterior fascicular block no longer present Myocardial infarct finding no longer present Electronically Signed On 03-18-2023 7:58:44 CDT by Siddharth Jenkins M.D. [email or web address].[email or web address]/store/NU/[id number] aida
--- NOTE | 2023-03-17 20:18 | XRR_ITS ---
PROCEDURE INFORMATION: Exam: XR Chest Exam date and time: 03/17/2023 8:20 PM Age: 77 years old Clinical indication: Device placement; Other: Tube placement TECHNIQUE: Imaging protocol: Radiologic exam of the chest. Views: 1 view. COMPARISON: CR (CHEST, ) 03/17/2023 7:10 PM FINDINGS: Tubes, catheters and devices: Left chest defibrillator pad. New ETT is in place, tip is about 4 cm above keeley. NGT unchanged. Lungs: Minimal left lung base atelectasis. No new consolidation. Pleural spaces: Unremarkable. No pleural effusion. No pneumothorax. Heart/Mediastinum: Unremarkable. No cardiomegaly. Bones/joints: Unremarkable. XR/XR chest 1V portable [id number] IMPRESSION: Interval intubation.
[2023-03-17] MEDS: fentaNYL 50 mcg/mL INJ 2mL IVP (20:23)
[2023-03-17] MEDS: LORazepam 2 mg/mL INJ 1 mL IVP (20:52)
[2023-03-17] MEDS: pantoprazole 40 mg SDV IVP (20:52)
[2023-03-17] MEDS: propofol 1,000 MG/100 ML INJ 3.13 MG IV (21:04)
--- NOTE | 2023-03-17 21:28 | W.PM.EVENTAC ---
Event Note Event Note: Backup was called last night l, when I entered the room Dr Mai was intubated the patient Response called, patient never lost pulse, after couple episode of emesis he started requiring 8 L of oxygen because of worsening of hypoxia rapid response was called, ER was intubating the patient went to the room, patient never required any ACLS medications, as per the nursing report patient got succinylcholine and then etomidate before intubation, sized tube 8 lip bite 24 cm I took patient to the ICU Placed right femoral central venous line, I was not able to access his radial artery for art line, Septic exam Patient is showing skin mottling Henry catheter drained concentrated urine Cap refill less than 3 seconds Patient is intubated currently on fentanyl sedated Patient is trying to wake up, we have to go up on his sedation up to 200 of fentanyl Assessment and plan Aspiration pneumonia Sepsis Criteria met with hypoxia, tachypnea tachycardia fever High lactic acid Patient has been given septic bolus, started on Levophed blood cultures sputum culture urine culture obtained Patient has penicillin allergy I have started him on clindamycin, vanComycin and aztreonam Twelve-lead EKG showed sinus tachycardia with RSR incomplete right bundle branch block no signs of CA Requested serial troponin EKG is at the bedside Currently patient is in septic shock requiring Levophed at soft max, lactic acidemia most likely related to hypoxemia during aspiration Worsening creatinine: DELTA monitor for ATN NG tube in place Chest x-ray reviewed, patient is saturating well, requested ABG, Total critical time spent more than 90minutes
--- NOTE | 2023-03-17 21:48 | P.PCN_ITS ---
Acute Procedures Central Line Placement: Right Femoral: Time out performed: Yes Patient placed on monitor/pulse ox: Yes MD prep: mask, gown, gloves and other Central line prep: Povidone-Iodine 1% Ultrasound used for placement: Yes Central line lumen inserted: triple Post procedure: sutured in place, good blood return, all ports aspirated, flush ed, capped and sterile dressing applied Patient tolerated procedure: well and no complications Complications: none Additional comments: Patient was intubated for septic shock, patient required central line for hypotension Consent taken from the
[2023-03-17 22:18] LABS: ABG PH Result 7.32 (7.35-7.45); Arterial Blood Gas Hematocrit 39.7 % (42-52); Base Excess ABG -2.5 mmol/L (-2.0-2.0); Blood Gas Operator Identificat JB; Blood Gas Sample Site Brachial, right; Blood Gas Sample Type Arterial; Blood Gas Tidal Volume 0.55; HCO3 ABG 23.8 mmol/L (22-26); Oxygen Device VENT
--- NOTE | 2023-03-17 22:21 | PM.CCN ---
Critical Care Event Note I responded to overhead page of CODE BLUE. Upon arrival in room patient apparently has had a possible aspiration event with acute hypoxic respiratory failure and respiratory distress. He has a pulse and mentation appears normal though distressed. Limited history obtained at bedside from RNs and Dr. Armstrong. Patient had back surgery and subsequently has developed ileus. NG tube was placed with approximately 3 L of contents removed. He became acutely hypoxic after vomiting just prior to rapid/code blue. He is distressed with hypotension and hypoxia and tachycardia. Patient was preoxygenated though not optimized prior to RSI as the need for intubation carried lower risk than further delay for attempting optimization. He would not be a good candidate for bipap given borderline mental state and aspiration risk. RSI was performed with succinylcholine and etomidate. No BVM ventilations. Patient also received 200 mcg of phenylephrine. There was gastric contents noted pooling in the posterior pharynx and care was taken to prevent further aspiration with elevation of the laryngeal structures above the pooling. No aspiration of contents was noted during laryngoscopy. Postintubation patient remained with strong pulse and improved oxygenation and vital signs. Augmentation with phenylephrine helped but I suspect he will need additional support when the phenylephrine wears off. Remainder of care per hospitalist service and transfer to ICU. Pola Mai MD Emergency Medicine Critical Care Time Code activated: Yes Critical Care Time (min): 31 Additional information about critical care time: Due to a high probability of clinically significant, possibly life threatening deterioration, the patient required my highest level of attention and preparedness to intervene emergently and I personally spent this critical care time directly and personally managing the patient. This critical care time included obtaining a history; examining the patient; pulse oximetry; ordering and review of laboratory and imaging studies; arranging urgent treatment with development of a management plan; evaluation of patient's response to treatment; frequent reassessment; and, discussions with other providers as applicable. It was exclusive of separately billable procedures. Primary system involved is respiratory [x] Data and vital sign review and interpretation [x] Patient assessment, examination and intervention [x] Documentation [x] Medication orders and management Procedures Intubation Sedative: etomidate Mg given: 30 Paralytic: succinylcholine Mg given: 100 Laryngoscope: fiber optic video scope ET tube size: 8 ET tube uncuffed: No Tube secured depth (cm): 25 Tube secured location: lips Tube placement confirmation: visualized tube passing through cords, equal breath sounds bilaterally and color change noted Patient tolerated procedure: well and no complications Coding Level of Care Code Acute Code for Chg Fwd
[2023-03-17 22:31] LABS: Troponin(5th) Baseline 69 ng/L (0-15)
[2023-03-17 22:33] LABS: Alanine Aminotransferase < 5 U/L (0-41); Albumin Level 3.1 g/dL (3.5-5.2); Alkaline Phosphatase 62 U/L (40-130); Anion Gap 17.4 (5-19); Aspartate Amino Transferase 23 U/L (0-40); Blood Urea Nitrogen 41 mg/dL (8-23); Calcium 8.8 mg/dL (8.5-10.5); Carbon Dioxide 25 mmol/L (22-29); Chloride 96 mmol/L (98-107); Globulin 1.8 g/dL (1.3-4.6); Glucose 142 mg/dL (65-115); Osmolality Calculated 291 mOsm/kg (285-295); Potassium 4.4 mmol/L (3.5-5.1); Sodium 134 mmol/L (136-145); Total Bilirubin 1.1 mg/dL (0.15-1.2); Total Protein 4.9 g/dL (6.6-8.7)
[2023-03-17 22:34] LABS: Lactate (Lactic Acid level) 3.9 mmol/L (0.5-2.2)
[2023-03-17 22:47] LABS: Add Urine Microscopic? YES; Amorphous Sediment Urine 2+ /hpf; Bacteria Urine 1+ /hpf; Bilirubin Urine 1+ (Negative); Blood Urine Neg (Negative); Glucose Urine UA Trace (Normal); Ketones Urine 1+ (Negative); Leukocyte Esterase Urine Negative (Negative); Mucus Urine 3+ /hpf; Nitrate Urine Negative (Negative); Protein Urine 1+ (Negative); Specific Gravity, Urine 1.025 (1.005-1.030); Urine Appearance SL Hazy (CLEAR); Urine Color Yellow (Yellow); Urobilinogen Urine Neg (Negative); pH Urine 5 (5-7)
[2023-03-17 22:48] LABS: Add Urine Culture? No
[2023-03-17] MEDS: simethicone 80 mg Chew PO (23:29)
[2023-03-17] MEDS: aztreonam 2,000 MG in sodium chloride 0.9% (plus) 100 ML 200 MG IV (23:30)
[2023-03-17] MEDS: clindamycin 900 MG/50 ML PREMIX 100 MG IV (23:30)
--- NOTE | 2023-03-17 23:31 | PC.NURSE ---
Responded to rapid response call. Dr. Armstrong at bedside. Orders to intubate. ER doctor, Dr. Mai, called to bedside. Vital signs monitored. 2001 RSI medications given per order. Patient transfered to ICU bed 8.
[2023-03-17 23:42] LABS: Basophils % 0.4 %; Eosinophils % 0.4 %; Hematocrit 33.3 % (42.0-52.0); Hemoglobin 10.5 g/dL (11.7-16.6); Lymphocytes # 0.9 10^3/uL (0.8-4.8); Lymphocytes % 37.4 %; Mean Corpuscular HGB Conc 31.5 g/dL (30.0-36.0); Mean Corpuscular Hemoglobin 29.5 pg (28.0-34.0); Mean Corpuscular Volume 93.5 fl (80-94); Mean Platelet Volume 9.9 fL (7.4-10.4); Monocytes # 0.2 10^3/uL (0.2-0.9); Monocytes % 6.3 %; Neutrophils # 1.24 10^3/uL (1.8-7.7); Neutrophils % 52.1 %; Nucleated Red Blood Cells % 0.8 %; Platelet Count 258 10^3/cmm (130-400); Red Blood Count 3.56 10^6/uL (4.1-5.3); Red Cell Distribution Width 14.1 % (12.1-15.1); White Blood Count 2.4 10^3/uL (4.0-10.0)
--- NOTE | 2023-03-17 23:43 | ECG_ITS ---
[facility] Test Date: 2023-03-17 Pat Name: Tino Hong Department: Room: [facility]08 Gender: Male Side Laster Tack: : 1945 Requested By: Georgette Metzger Order Number: [id number] Jose A MD: Siddharth Jenkins M.D. Measurements Intervals [place] Rate: 67 P: 72 IA: 210 QRS: 162 QRSD: 137 T: 41 QT: 440 QTc: 465 Interpretive Statements SINUS RHYTHM WITH FIRST DEGREE AV BLOCK RIGHT BUNDLE BRANCH BLOCK [120+ ms QRS DURATION, UPRIGHT V1, 40+ ms S IN I/aVL/V4/V5/V6] LEFT POSTERIOR FASCICULAR BLOCK [QRS AXIS > 109, INFERIOR Q] SEPTAL MYOCARDIAL INFARCTION , PROBABLY OLD [40+ ms Q WAVE IN V1/V2] Compared to ECG 03/17/2023 20:21:40 First degree AV block now present Right bundle-branch block now present Left posterior fascicular block now present Myocardial infarct finding now present Sinus tachycardia no longer present Ventricular premature complex(es) no longer present Electronically Signed On 03-18-2023 7:59:28 CDT by Siddharth Jenkins M.D. [id number]
[2023-03-17 23:49] LABS: Slide Review Slide Review Perform
[2023-03-17 23:53] LABS: Troponin 5 2HR 74.72 ng/L (0-15); Troponin 5 2HR Delta 5.72 ABS# (0-10)
[2023-03-17] MEDS: vancomycin 1,500 MG/300 ML PIGGYBACK 200 MG IV (23:57)
[2023-03-18] VITALS (131 sets, daily range): BP systolic 66–156; BP diastolic 43–98; PULSE 59–159; RESP 12–24; TEMP 35.9–39.3; O2SAT 77–100
[2023-03-18] MEDS: propofol 1,000 MG/100 ML INJ 18.78 MG IV (01:24)
[2023-03-18 01:34] LABS: Anion Gap 15.8 (5-19); Blood Urea Nitrogen 40 mg/dL (8-23); Calcium 7.7 mg/dL (8.5-10.5); Carbon Dioxide 23 mmol/L (22-29); Chloride 100 mmol/L (98-107); Glucose 116 mg/dL (65-115); Lactate (Lactic Acid level) 2.6 mmol/L (0.5-2.2); Magnesium 1.6 mg/dL (1.7-2.3); Osmolality Calculated 291 mOsm/kg (285-295); Potassium 3.8 mmol/L (3.5-5.1); Sodium 135 mmol/L (136-145)
[2023-03-18] MEDS: sodium chloride 0.9% 1,000 ML 125 ML IV ×3 (01:48→17:30)
--- NOTE | 2023-03-18 02:12 | XRR_ITS ---
PROCEDURE INFORMATION: Exam: XR Chest Exam date and time: 03/18/2023 2:20 AM Age: 77 years old Clinical indication: Other: De-satting on ventilator; Additional info: Desatting TECHNIQUE: Imaging protocol: Radiologic exam of the chest. Views: 1 view. COMPARISON: CR (CHEST, ) 03/17/2023 8:20 PM FINDINGS: Tubes, catheters and devices: Lines and tubes unchanged. Lungs: Increasing lung base densities with small effusions possible. Pleural spaces: No pneumothorax. Heart/Mediastinum: Heart is upper limits normal size. Vasculature: Advanced diffuse vascular calcification noted. Bones/joints: Unremarkable. XR/XR chest 1V portable [id number] IMPRESSION: Increasing areas of bibasilar atelectasis or pneumonia.
[2023-03-18 02:41] LABS: Blood Gas Allen Test Pos; Blood Gas Operator Identificat JB; Blood Gas Sample Type Arterial; Blood Gas Tidal Volume 0.55; Oxygen Device VENT
[2023-03-18 02:54] LABS: ABG PCO2 47.3 mmHg (35-45); ABG PH Result 7.29 (7.35-7.45); Arterial Blood Gas Hematocrit 32.8 % (42-52); Base Excess ABG -3.6 mmol/L (-2.0-2.0); Blood Gas Sample Site Brachial, left; HCO3 ABG 22.9 mmol/L (22-26)
[2023-03-18] MEDS: acetaminophen 1,000 MG/100 ML PIGGYBACK 400 MG IV (03:07)
[2023-03-18 03:33] LABS: Basophils % 0.5 %; Eosinophils # 0.1 10^3/uL (0.0-0.8); Eosinophils % 3.3 %; Hematocrit 36.3 % (42.0-52.0); Hemoglobin 11.1 g/dL (11.7-16.6); Lymphocytes # 1.8 10^3/uL (0.8-4.8); Mean Corpuscular HGB Conc 30.6 g/dL (30.0-36.0); Mean Corpuscular Hemoglobin 29.8 pg (28.0-34.0); Mean Corpuscular Volume 97.3 fl (80-94); Mean Platelet Volume 9.5 fL (7.4-10.4); Monocytes # 0.3 10^3/uL (0.2-0.9); Monocytes % 6.4 %; Neutrophils # 1.86 10^3/uL (1.8-7.7); Neutrophils % 44.4 %; Nucleated Red Blood Cells % 0.5 %; Platelet Count 250 10^3/cmm (130-400); Red Blood Count 3.73 10^6/uL (4.1-5.3); Red Cell Distribution Width 14.3 % (12.1-15.1); White Blood Count 4.2 10^3/uL (4.0-10.0)
[2023-03-18] MEDS: phenylephrine inj 25 MG in sodium chloride 0.9% 250 ML 24.24 MG IV (03:39)
--- NOTE | 2023-03-18 03:39 | XRR_ITS ---
PROCEDURE INFORMATION: Exam: XR Abdomen Exam date and time: 03/18/2023 3:45 AM Age: 77 years old Clinical indication: Other: Ileus TECHNIQUE: Imaging protocol: Radiologic exam of the abdomen. Views: Frontal supine view of the abdomen. 1 View. COMPARISON: CT abdomen pelvis wo con [id number] 03/17/2023 2:11 PM FINDINGS: Tubes, catheters and devices: Right groin femoral line likely, partially imaged. Lungs: See same-day chest x-ray for lung base findings. Gastrointestinal tract: Moderate excess large and small bowel gas visualized. Bones/joints: Severe diffuse DJD. XR/XR abdomen 1V* [id number] IMPRESSION: Moderate ileus likely.
[2023-03-18] MEDS: norepinephrine 8 MG in dextrose 5 % 500 ML 114.3 MG IV ×2 (03:45→07:57)
--- NOTE | 2023-03-18 03:46 | ECG_ITS ---
[facility] Test Date: 2023-03-18 Pat Name: Tino Hong Department: Room: [facility]08 Gender: Male [employer] Chemist: : 1945 Requested By: Georgette Metzger Order Number: [id number] Reading MD: Siddharth Jenkins M.D. Measurements Intervals [place] Rate: 118 P: 10 IL: 181 QRS: -71 QRSD: 101 T: 64 QT: 295 QTc: 415 Interpretive Statements SINUS TACHYCARDIA LOW QRS VOLTAGE IN PRECORDIAL LEADS [QRS DEFLECTION < 1.0 mV IN CHEST LEADS] PATTERN CONSISTENT WITH PULMONARY DISEASE POSSIBLE RIGHT VENTRICULAR CONDUCTION DELAY [RSR (QR) IN V1/V2] Compared to ECG 03/17/2023 23:43:04 Low QRS voltage now present Sinus rhythm no longer present First degree AV block no longer present Right bundle-branch block no longer present Left posterior fascicular block no longer present Myocardial infarct finding no longer present Electronically Signed On 03-18-2023 7:59:09 CDT by Siddharth Jenkins M.D. [id number]
--- NOTE | 2023-03-18 03:48 | USCV_ITS ---
Tino Hong Age: 77 Gender: M : 1945 Exam Date: 03/18/2023 04:44 Ordering Phys: Jim Rebolledo MD Technologist: ANNIE [place] [facility] [place]: hypotension. Patient is on ventilator in ICU-8 BP: 81 / 51 HR: 98 Rhythm: Sinus Technical Quality: Adequate MEASUREMENTS (Male / Female) Normal Values 2D ECHO LV Diastolic Diameter PLAX 4.0 cm 4.2 - 5.9 / 3.9 - 5.3 cm LV Systolic Diameter PLAX 2.8 cm IVS Diastolic Thickness 1.3 cm 0.6 - 1.0 / 0.6 - 0.9 cm IVS Systolic Thickness 1.9 cm LVPW Diastolic Thickness 1.4 cm 0.6 - 1.0 / 0.6 - 0.9 cm LVPW Systolic Thickness 1.7 cm LVOT Diameter 2.1 cm LV Ejection Fraction 2D Teich 57.3 % LV Ejection Fraction MOD 2C 45.1 % LV Ejection Fraction 2C AL 43.3 % LA Diameter 3.5 cm LA Width 3.3 cm LA Height 5.2 cm RA Width 3.4 cm RA Height 4.0 cm Aorta at Sinotubular Diameter 3.2 cm IVC Diameter 1.3 cm M-MODE Aortic Annulus Diameter 3.6 cm LA Ao Ratio MM 1.0 MV E Point Septal Separation 0.4 cm DOPPLER AV Peak Velocity 160.0 cm/s LVOT Peak Velocity 122.0 cm/s AV Area Cont Eq vti 2.8 cm squared AV Area Cont Eq pk 2.8 cm squared MV Area PHT 2.8 cm squared Mitral E to A Ratio 0.6 MV E' Velocity 26.5 cm/s Mitral E to MV E' Ratio 9.2 Mitral E to LV E' Lateral Ratio 7.7 Mitral E to LV E' Septal Ratio 11.4 TR Peak Velocity 268.3 cm/s TR Peak Gradient 28.8 mmHg TV Peak E Velocity 62.0 cm/s Right Atrial Pressure 5.0 mmHg Pulmonary Artery Systolic Pressu 33.8 mmHg PV Peak Velocity 87.0 cm/s RV Acceleration Time 0.1 s RV Ejection Time 0.3 s RV AcT/ET 0.3 FINDINGS Left Ventricle Left ventricle is normal in size. LV systolic function is mildly reduced with EF of 45-50%. Very mild global hypokinesis. Grade 1 diastolic dysfunction Right Ventricle Normal in size and function Right Atrium Normal in size Left Atrium Normal in size Mitral Valve Structurally normal mitral valve. Aortic Valve Aortic valve is thickened. No significant stenosis or regurgitation. Tricuspid Valve Mild to moderate tricuspid regurgitation. RVSP is 35-40mmHg. This is consistent with mild pulmonary hypertension Pulmonic Valve Not well visualized Pericardium Normal Aorta Normal in size IVC Appears to be normal CONCLUSIONS Technically limited quality echocardiogram because of poor ultrasonic windows. LV systolic function is mildly reduced with EF of 45-50% Grade 1 diastolic dysfunction Mild to moderate tricuspid regurgitation Mild pulmonary hypertension Compared to prior echocardiogram from 2020, LV systolic function has decreased slightly. Siddharth Jenkins MD (Electronically Signed) Final Date: 18 March 2023 13:47 S
[2023-03-18 03:52] LABS: Troponin 5 6HR 95.36 ng/L (0-15)
[2023-03-18 03:57] LABS: Lactic Sepsis W/Reflex 2.9 mmol/L (0.5-2.2)
[2023-03-18 03:59] LABS: Troponin 5 6HR Delta 26.36 ng/L (0-12)
[2023-03-18 04:04] LABS: Procalcitonin 47.27 ng/mL (0-0.5)
[2023-03-18 04:07] LABS: Estmated Average Glucose 137; Hemoglobin A1C 6.4 % (4.0-6.0)
[2023-03-18 04:20] LABS: Alanine Aminotransferase < 5 U/L (0-41); Albumin Level 2.8 g/dL (3.5-5.2); Alkaline Phosphatase 79 U/L (40-130); Aspartate Amino Transferase 42 U/L (0-40); Blood Urea Nitrogen 42 mg/dL (8-23); Calcium 8.1 mg/dL (8.5-10.5); Carbon Dioxide 23 mmol/L (22-29); Chloride 99 mmol/L (98-107); Globulin 1.8 g/dL (1.3-4.6); Glucose 112 mg/dL (65-115); Magnesium 1.7 mg/dL (1.7-2.3); Osmolality Calculated 291 mOsm/kg (285-295); Phosphorus 3.1 mg/dL (2.5-4.5); Sodium 135 mmol/L (136-145); Total Bilirubin 1.5 mg/dL (0.15-1.2); Total Protein 4.6 g/dL (6.6-8.7)
[2023-03-18] MEDS: sodium bicarbonate 1 mEq/mL SDV 50mL 50 MEQ IVP ×2 (04:32→18:45)
[2023-03-18 04:49] LABS: Slide Review Slide Review Perform
[2023-03-18 04:54] LABS: Chol HDL Ratio 2.26 mg/dL (1.0-5.00); Cholesterol 97 mg/dL (0-200); Creatine Phosphokinase 260 U/L (39-308); HDL Cholesterol 43 mg/dL (60-100); LDL Cholesterol Calculated 33 mg/dL (50-129); LDL HDL Ratio 0.77 RATIO (0.00-3.22); Triglycerides 104 mg/dL (0-150)
[2023-03-18] MEDS: doxycycline 100 MG in sodium chloride 0.9% (plus) 100 ML IV ×2 (04:59→17:36)
[2023-03-18] MEDS: hydrocortisone 100 mg/2 mL SDV 50 MG IVP ×2 (04:59→10:22)
--- NOTE | 2023-03-18 05:04 | P.CONIM_ITS ---
Providers/Reason For Consult Consulting Physician/Specialty*: Jim Rebolledo MD/pulmonary critical care Reason for Consult*: Septic shock, hypoxic respiratory failure secondary to aspiration Requesting Physician: Maki Avila MD Attending Physician: Cuauhtemoc Matamoros MD Primary Care Provider: Meliza Pathak MD History of Present Illness History of Present Illness Tino Hong is a 77 year old male with a past medical history of hypertension, COPD, Parkinson's disease, currently transferred to ICU for hypoxic respiratory failure as well as shock. History source: Patient , medical chart tells me that patient has history of Parkinson's but he moves around and tries to keep himself mobile. they went on a long drive to [facility] few weeks ago but took 2-hour breaks. Apparently during their trip-he has sudden onset weakness in his legs-MRI showed disc bulging throughout lumbar spine significantly progressed compared to 2008 with progressive central canal stenosis. Patient has been on wheelchair for last 2 to 3 weeks. He underwent L2-L5 laminectomy with partial facetectomy on Tuesday03/14/2023. Reported bowel movement was on 03/13/2023. tells me that he did not take any pain medicatio ns even after surgery. 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 Patient was brought to [facility] emergency room-after he presented with nausea, vomiting, poor appetite, no bowel movements. It seems during admission he was awake and was able to all answers. CT abdomen pelvis showed markedly distended fluid-filled stomach with air-fluid level and moderate esophageal hiatal hernia with fluid in distal esophagus. It appears there is a dynamic ileus possibly postoperative. He was admitted to medical floor for management of ileus/small bowel obstruction. There was some difficulty getting NG tube due to and deviated septum. General surgery consult placed and NG tube was placed and yielded up to 3 L of NG brownish aspirate. He was he modynamically stable at that point of time. His admission lactic acid was 5.2. Towards late evening-patient went into acute hypoxic respiratory failure and respiratory distress possibly secondary to aspiration event. He was intubated emergently and transferred to ICU. Patient was started on vancomycin, clindamycin, aztreonam. His blood pressures were low and he was started on Levophed, vasopressin and phenylephrine. At this point, pulmonary critical care consult requested for emergent bron choscopy for possible aspiration. Patient seen at bedside Currently intubated, sedated, on ventilator-CMV 550/8/100 %-saturating 97% -Currently on 3 pressors Levophed 30, vasopressin 0.04, phenylephrine Review of Systems General: Reports: ROS unobtainable due to endotracheal tube, ROS unobtainable due to medical condition and ROS unobtainable due to mental status Medications/Allergies Home Medications Medication Instructions Recorded Confirmed Last Taken Type cholecalciferol (vitamin D3) 25 25 mcg PO DAILY 03/17/21 03/17/23 03/16/23 History mcg (1,000 unit) capsule coenzyme Q10 200 mg capsule (Co 200 mg PO DAILY 03/17/21 03/17/23 03/16/23 History Q-10) melatonin 10 mg capsule 10 mg PO DAILY 03/17/21 03/17/23 03/16/23 History epinephrine 0.3 mg/0.3 mL See Rx Instructions .Route 02/02/22 03/17/23 Unknown Rx injection, auto-injector .COMPLEX #2 ea carbidopa 25 mg-levodopa 250 mg 2 tab PO TID 02/10/22 03/17/23 03/17/23 History tablet albuterol sulfate 90 mcg/actuation 2 puff inhalation Q6H PRN 07/22/22 03/17/23 Unknown Rx aerosol inhaler shortness of breath or wheezing #8.5 grams fluticasone propionate 50 See Rx Instructions .Route 08/06/22 03/17/23 03/16/23 Rx mcg/actuation nasal .COMPLEX #16 grams spray,suspension amantadine HCl 100 mg capsule 100 mg PO Q8H 03/02/23 03/17/23 03/16/23 History hydrocodone 5 mg-acetaminophen 325 1 - 2 tab PO .Q4-6H #40 tabs 03/15/2303/17 Unknown Rx mg tablet tamsulosin 0.4 mg capsule (Flomax) 0.4 mg PO DAILY 7 days #7 caps 03/15/23 03/17/23 03/16/23 Rx amlodipine 2.5 mg tablet 2.5 mg PO DAILY 03/17/23 03/17/23 03/16/23 History atorvastatin 20 mg tablet 20 mg PO DAILY 03/17/23 03/17/23 03/16/23 History gabapentin 300 mg capsule 300 mg PO BEDTIME 03/17/23 03/17/23 03/16/23 History lisinopril 20 1 tab PO DAILY 03/17/23 03/17/23 03/16/23 History mg-hydrochlorothiazide 12.5 mg tablet meloxicam 7.5 mg tablet 7.5 mg PO BID 03/17/23 03/17/23 03/16/23 History omeprazole 20 mg capsule,delayed 20 mg PO BID 03/17/23 03/17/23 03/16/23 History release trazodone 50 mg tablet 50 mg PO BEDTIME 03/17/23 03/17/23 03/16/23 History triamterene 37.5 1 tab PO DAILY 03/17/23 03/17/23 03/16/23 History mg-hydrochlorothiazide 25 mg tablet Allergies Allergy/AdvReac Type Severity Reaction Status Date / Time budesonide [From Symbicort] Allergy Unknown Verified 03/17/23 16:01 formoterol [From Symbicort] Allergy Unknown Verified 03/17/23 16:01 ibuprofen [From Advil] Allergy Unknown Verified 03/17/23 16:01 iodine Allergy Unknown Verified 03/17/23 16:01 Penicillins Allergy Unknown Verified 03/17/23 16:01 Current Medications Generic Name Dose Route Start Last Admin Trade Name Freq PRN Reason Stop Dose Admin Enoxaparin Sodium 30 mg 03/17/23 18:30 03/17/23 17:59 Enoxaparin 30 Mg/0.3 Ml Syringe SUBCUT Not Given Q24H YOSVANY Hydrocortisone Sodium Succinate 50 mg 03/18/23 04:45 03/18/23 04:59 Hydrocortisone 100 Mg/2 Ml Sdv IVP 50 mg Q6H YOSVANY Administration Fentanyl 2,500 mcg/ Sodium 250 mls @ 0 mls/hr 03/17/23 20:30 03/18/23 01:00 Chloride IV 100 mcg/hr .Q0M YOSVANY 10 mls/hr Titration Protocol Per Protocol Aztreonam 2,000 mg/ Sodium 100 mls @ 200 mls/hr 03/17/23 21:00 03/18/23 00:01 Chloride IV Infused Q12H YOSVANY Infusion Protocol Vancomycin/PEG/NADA/Lysine/Water 1,500 mg in 300 mls @ 200 mls/hr 03/17/23 21:00 03/18/23 01:17 Vancocin IV Infused Q36H YOSVANY Infusion Propofol 1,000 mg in 100 mls @ 0 mls/hr 03/17/23 21:00 03/18/23 04:26 Diprivan IV 20 mcg/kg/min .Q0M YOSVANY 12.52 mls/hr Titration Protocol Per Protocol Vasopressin 100 unit/ Sodium 100 mls @ 0 mls/hr 03/17/23 21:30 03/17/23 23:03 Chloride IV 0.04 unit/min .Q0M YOSVANY 2.4 mls/hr Administration Protocol Per Protocol Norepinephrine Bitartrate 4 mg 254 mls @ 0 mls/hr 03/17/23 21:30 03/18/23 04:26 / Dextrose IV Infused .Q0M YOSVANY Titration Protocol Per Protocol Clindamycin HCl/Dextrose 900 mg in 50 mls @ 100 mls/hr 03/17/23 23:30 03/18/23 00:01 Cleocin IV Infused Q8H YOSVANY Infusion Protocol Sodium Chloride 1,000 mls @ 125 mls/hr 03/18/23 01:45 03/18/23 01:48 Sodium Chloride 0.9% IV 125 mls/hr .Q8H YOSVANY Administration Norepinephrine Bitartrate 8 mg 508 mls @ 0 mls/hr 03/18/23 02:30 03/18/23 03:45 / Dextrose IV 30 mcg/min .Q0M YOSVANY 114.3 mls/hr Administration Protocol Per Protocol Phenylephrine HCl 25 mg/ 252.5 mls @ 0 mls/hr 03/18/23 03:15 03/18/23 04:26 Sodium Chloride IV 60 mcg/min .Q0M YOSVANY 36.36 mls/hr Titration Protocol Per Protocol Doxycycline Hyclate 100 mg/ 100 mls @ 100 mls/hr 03/18/23 04:45 03/18/23 04:59 Sodium Chloride IV 100 mls/hr Q12H YOSVANY Administration Protocol Metoclopramide HCl 5 mg 03/17/23 17:50 03/17/23 18:23 Metoclopramide 5 Mg/Ml Sdv 2 Ml IVP 5 mg Q6H PRN Administration NAUSEA AND VOMITING Pantoprazole Sodium 40 mg 03/17/23 20:00 03/17/23 20:52 Pantoprazole 40 Mg Sdv IVP 40 mg Q12H YOSVANY Administration Pantoprazole Sodium 40 mg 03/17/23 20:30 03/17/23 20:54 Pantoprazole 40 Mg Sdv IVP Not Given Q12H YOSVNAY Simethicone 80 mg 03/17/23 21:00 03/17/23 23:29 Simethicone 80 Mg Chew PO 80 mg QID YOSVANY Administration PFSH Acute PFSH: Medical History COPD (chronic obstructive pulmonary disease) GERD (gastroesophageal reflux disease) Hyperlipidemia Hypertension Surgical History History of back surgery Family History Father CAD (coronary artery disease) Hypertension Sister CAD (coronary artery disease) Denies family history of Diabetes Clotting disorder Dementia Chronic kidney disease (CKD) Suicide Anesthesia complication Bleeding disorder Lung disease Cancer Stroke Social History Smoking and tobacco status: former smoker Alcohol intake: never Substance/Drug Use: never Lives independently: No Household members: spouse Marital status: Special abbe needs: No Vitals/I&O/Wt Last Vital Signs Temp 102.7 F H 03/18/23 02:55 Pulse 102 H 03/18/23 04:50 Resp 23 H 03/18/23 03:16 BP 91/63 03/18/23 04:50 Pulse Ox 97 03/18/23 04:40 O2 Del Method Mechanical Ventilation 03/17/23 21:02 FiO2 100 03/18/23 03:16 03/17/23 03/17/23 03/18/23 14:59 22:59 06:59 Intake Total 1000 / 1000 1024.447 / 4.447 4653.162 / 6677.609 Balance 1000 / 1000 1024.447 / 4.447 4653.162 / 6677.609 Weight last 48 hrs Weight 230 lb Physical Exam Narrative: PHYSICAL EXAM: General: lying in bed, sedated and intubated. HEENT:NCAT, PERRLA, EOMI Neck: Supple Lungs: Faint wheeze-reduced breath sounds Heart: s1/s2, RRR Abd: soft, NT, ND, BS + Normoactive Extremities: No edema [employer]SEM[employer]: sedated and limited [employer] exam possible. SKIN: no rash LDA: # CVC: Right femoral line 03/17/2023 # Henry: 03/17/2023 # A line: Right radial arterial line 03/18/2023 Urinary Catheter Management: Henry: Cath Placed During This Visit: yes Urinary Catheter Date of Insertion: 03/17/23 Urinary Catheter Time of Insertion: 21:22 Data 03/18/23 03:14 03/18/23 03:14 Other Labs: Radiology Impressions Abdomen/Pelvis CT 03/17/23 13:27 IMPRESSION: 1. Markedly distended fluid-filled stomach with air-fluid level and moderate es ophageal hiatal hernia. Fluid in the distal esophagus. 2. Distended fluid-filled proximal small bowel likely due to adynamic ileus considering recent surgery versus developing partial small bowel obstruction. Distal ileum appears decompressed. No definite transition point. 3. Colon appears decompressed. 4. Trace LEFT greater than RIGHT pleural fluid with bibasilar atelectasis. 5. Recent decompressive laminectomies L2-L4 with expected postoperative changes. Chest X-Ray 03/18/23 02:12 IMPRESSION: Increasing areas of bibasilar atelectasis or pneumonia. Abdomen X-Ray 03/18/23 03:39 IMPRESSION: Moderate ileus likely. Laboratory Results WBC 4.2 10^3/uL (4.0-10.0) 03/18/23 03:14 Corrected WBC Cancelled 03/17/23 21:47 RBC 3.73 10^6/uL (4.1-5.3) L 03/18/23 03:14 Hgb 11.1 g/dL (11.7-16.6) L 03/18/23 03:14 Hct 36.3 % (42.0-52.0) L 03/18/23 03:14 MCV 97.3 fl (80-94) H 03/18/23 03:14 MCH 29.8 pg (28.0-34.0) 03/18/23 03:14 MCHC 30.6 g/dL (30.0-36.0) 03/18/23 03:14 RDW 14.3 % (12.1-15.1) 03/18/23 03:14 Plt Count 250 10^3/cmm (130-400) 03/18/23 03:14 MPV 9.5 fL (7.4-10.4) 03/18/23 03:14 Gran % Cancelled 03/17/23 21:47 Neut % (Auto) 44.4 % 03/18/23 03:14 Lymph % (Auto) 43.0 % 03/18/23 03:14 Daniels % (Auto) 6.4 % 03/18/23 03:14 Eos % (Auto) 3.3 % 03/18/23 03:14 Baso % (Auto) 0.5 % 03/18/23 03:14 Neut # (Auto) 1.86 10^3/uL (1.8-7.7) 03/18/23 03:14 Lymph # (Auto) 1.8 10^3/uL (0.8-4.8) 03/18/23 03:14 Daniels # (Auto) 0.3 10^3/uL (0.2-0.9) 03/18/23 03:14 Eos # (Auto) 0.1 10^3/uL (0.0-0.8) 03/18/23 03:14 Baso # (Auto) 0.0 10^3/uL (0.0-0.1) 03/18/23 03:14 Absolute Gran (auto) Cancelled 03/17/23 21:47 Nucleated RBC % (auto) 0.5 % 03/18/23 03:14 Total Counted 100 (0-100) 03/17/23 14:02 Atypical Lymphs % 0.0 % (0-5) 03/17/23 14:02 Absolute Neutrophils 6.6 10^3/cmm (1.4-6.5) H 03/17/23 14:02 Segmented Neutrophils 73 % 03/17/23 14:02 Abs Segm Neuts (Man) 6.3 10/cmm (1.6-7.1) 03/17/23 14:02 Band Neutrophils 4.0 % 03/17/23 14:02 Abs Band Neuts (Man) 0.3 10^3/cmm (0.0-1.2) 03/17/23 14:02 Absolute Lymphocytes 0.5 10^3/cmm (1.2-3.4) L 03/17/23 14:02 Lymphocytes (Manual) 6 % 03/17/23 14:02 Monocytes (Manual) 14.0 % 03/17/23 14:02 Absolute Monocytes 1.2 10^3/cmm (0.1-0.6) H 03/17/23 14:02 Eosinophils (Manual) 0 % 03/17/23 14:02 Absolute Eosinophils 0.0 10^3/cmm (0.0-0.7) 03/17/23 14:02 Basophils (Manual) 0.0 % 03/17/23 14:02 Absolute Basophils 0.0 10^3/cmm (0.0-0.2) 03/17/23 14:02 Metamyelocytes 2.0 % 03/17/23 14:02 Myelocytes 1.0 % 03/17/23 14:02 Nucleated RBCs # 0.0 /100WBC 03/18/23 03:14 Platelet Estimate Normal (Normal) 03/17/23 14:02 Giant Platelets Trace 03/17/23 14:02 Polychromasia 1+ H 03/17/23 14:02 Macrocytosis 1+ H 03/17/23 14:02 Specimen Type Arterial 03/18/23 05:22 Specimen Type Venous 03/18/23 05:22 Sample Site Not specified 03/18/23 05:22 Sample Site Not specified 03/18/23 05:22 ABG pH 7.21 (7.35-7.45) L 03/18/23 05:22 ABG pH 7.28 (7.35-7.45) L 03/18/23 05:22 ABG pCO2 45.9 mmHg (35-45) H 03/18/23 05:22 ABG pCO2 57.6 mmHg (35-45) H 03/18/23 05:22 ABG pO2 33.0 mmHg (80.0-100.0) L* 03/18/23 05:22 ABG pO2 99.9 mmHg (80.0-100.0) 03/18/23 05:22 ABG HCO3 21.7 mmol/L (22-26) L 03/18/23 05:22 ABG HCO3 23.0 mmol/L (22-26) 03/18/23 05:22 ABG O2 Saturation 45.8 03/18/23 05:22 ABG Base Excess -5.3 mmol/L (-2.0-2.0) L 03/18/23 05:22 ABG Base Excess -4.7 mmol/L (-2.0-2.0) L 03/18/23 05:22 Yves Test N/a 03/18/23 05:22 Yves Test N/a 03/18/23 05:22 VBG pH 7.21 (7.32-7.42) L 03/18/23 05:22 VBG pCO2 57.6 mmHg (41-51) H 03/18/23 05:22 VBG pO2 33.0 mmHg (25-40) 03/18/23 05:22 VBG HCO3 23.0 mmol/L (24-28) L 03/18/23 05:22 VBG Base Excess -5.3 mmol/L (-3.0-3.0) L 03/18/23 05:22 VBG Hematocrit 33.2 % (42-52) L 03/18/23 05:22 Hematocrit 23.3 % (42-52) L 03/18/23 05:22 Hematocrit 33.2 % (42-52) L 03/18/23 05:22 Hgb O2 Saturation 45.2 % (95-100) L 03/18/23 05:22 Carboxyhemoglobin 0.8 %THgb (0.4-20.1) 03/18/23 05:22 Methemoglobin 0.6 % (0.4-1.5) 03/18/23 05:22 Total Hemoglobin 10.8 g/dL (14-18) L 03/18/23 05:22 Sodium 134.0 mmol/L (131-143) 03/18/23 05:22 Potassium 3.0 mmol/L (3.5-5.0) L 03/18/23 05:22 Glucose 124.0 mg/dL (70-115) H 03/18/23 05:22 Ionized Calcium 1.1 mmol/L (1.1-1.4) 03/18/23 05:22 O2 Delivery Device Vent 03/18/23 05:22 O2 Delivery Device Vent 03/18/23 05:22 FiO2 100.0 % 03/18/23 05:22 FiO2 100.0 % 03/18/23 05:22 Tidal Volume 0.55 03/18/23 05:22 Tidal Volume 0.55 03/18/23 05:22 PEEP 8.0 cmH20 03/18/23 05:22 PEEP 8.0 cmH20 03/18/23 05:22 Florist Designer ID Luc 03/18/23 05:22 Florist Designer ID Luc 03/18/23 05:22 Sodium 135 mmol/L (136-145) L 03/18/23 03:14 Potassium 4.0 mmol/L (3.5-5.1) 03/18/23 03:14 Chloride 99 mmol/L (98-107) 03/18/23 03:14 Carbon Dioxide 23 mmol/L (22-29) 03/18/23 03:14 Anion Gap 17.0 (5-19) 03/18/23 03:14 BUN 42 mg/dL (8-23) H 03/18/23 03:14 Creatinine 4.3 mg/dL (0.7-1.2) H 03/18/23 03:14 GFR Calculation Not Reportable 03/18/23 03:14 Glucose 112 mg/dL (65-115) 03/18/23 03:14 POC Glucose 138 mg/dL (70-110) H 03/17/23 19:49 Estimat Average Glucose 137 03/18/23 03:14 Hemoglobin A1c 6.4 % (4.0-6.0) H 03/18/23 03:14 Calculated Osmolality 291 mOsm/kg (285-295) 03/18/23 03:14 Lactic Acid 2.9 mmol/L (0.5-2.2) H 03/18/23 03:14 Lactic Acid (Sepsis) 5.2 mmol/L (0.5-2.2) H* 03/17/23 15:20 Lactate 2.6 mmol/L (0.5-2.2) H 03/18/23 00:56 Calcium 8.1 mg/dL (8.5-10.5) L 03/18/23 03:14 Phosphorus 3.1 mg/dL (2.5-4.5) 03/18/23 03:14 Magnesium 1.7 mg/dL (1.7-2.3) 03/18/23 03:14 Total Bilirubin 1.5 mg/dL (0.15-1.2) H 03/18/23 03:14 AST 42 U/L (0-40) H 03/18/23 03:14 ALT < 5 U/L (0-41) 03/18/23 03:14 Alkaline Phosphatase 79 U/L (40-130) 03/18/23 03:14 Creatine Kinase 260 U/L (39-308) D 03/18/23 03:14 Troponin T Baseline 69 ng/L (0-15) H 03/17/23 21:47 Troponin T 120 Minute 74.72 ng/L (0-15) H 03/17/23 23:25 Delta Troponin T 5.72 ABS# (0-10) 03/17/23 23:25 Troponin T Hi Sens 6Hr 95.36 ng/L (0-15) H 03/18/23 03:14 Troponin T Hi Sens 6Hr Delta 26.36 ng/L (0-12) H* 03/18/23 03:14 C-Reactive Protein 197.0 mg/L (0.0-4.9) H 03/18/23 03:14 Total Protein 4.6 g/dL (6.6-8.7) L 03/18/23 03:14 Albumin 2.8 g/dL (3.5-5.2) L 03/18/23 03:14 Globulin 1.8 g/dL (1.3-4.6) 03/18/23 03:14 Triglycerides 104 mg/dL (0-150) 03/18/23 03:14 Cholesterol 97 mg/dL (0-200) 03/18/23 03:14 LDL Cholesterol, Calc 33 mg/dL (50-129) L 03/18/23 03:14 HDL Cholesterol 43 mg/dL (60-100) L 03/18/23 03:14 LDL/HDL Ratio 0.77 RATIO (0.00-3.22) 03/18/23 03:14 Cholesterol/HDL Ratio 2.26 mg/dL (1.0-5.00) 03/18/23 03:14 Lipase 18 U/L (13-60) 03/17/23 14:02 Procalcitonin 47.27 ng/mL (0-0.5) H 03/18/23 03:14 TSH 0.22 uIU/mL (0.27-4.20) L 03/17/23 14:02 Urine Color Yellow (Yellow) 03/17/23 21:20 Urine Appearance Sl hazy (CLEAR) A 03/17/23 21:20 Urine pH 5 (5-7) 03/17/23 21:20 Ur Specific [place] 1.025 (1.005-1.030) 03/17/23 21:20 Urine Protein 1+ (Negative) H 03/17/23 21:20 Urine Glucose (UA) Trace (Normal) H 03/17/23 21:20 Urine Ketones 1+ (Negative) H 03/17/23 21:20 Urine Blood Neg (Negative) 03/17/23 21:20 Urine Nitrate Negative (Negative) 03/17/23 21:20 Urine Bilirubin 1+ (Negative) H 03/17/23 21:20 Urine Urobilinogen Neg mg/dL (Negative) 03/17/23 21:20 Ur Leukocyte Esterase Negative (Negative) 03/17/23 21:20 Urine RBC None /hpf (0-2) 03/17/23 21:20 Urine WBC None /hpf (0-5) 03/17/23 21:20 Ur Squamous Epith Cells None /hpf (0-5) 03/17/23 21:20 Ur Transition Epith Cell 5-10 /hpf 03/17/23 21:20 Amorphous Sediment 2+ /hpf 03/17/23 21:20 Urine Bacteria 1+ /hpf (NONE) H 03/17/23 21:20 Urine Mucus 3+ /hpf 03/17/23 21:20 Micro: Microbiology 03/17/23 21:47 Blood Culture - Preliminary Blood SPECIMEN COLLECTED 03/17/23 20:47 Blood Culture - Preliminary Blood SPECIMEN COLLECTED 03/17/23 15:10 Blood Culture - Preliminary Blood SPECIMEN COLLECTED 03/17/23 15:03 Blood Culture - Preliminary Blood SPECIMEN COLLECTED A&P Assessment and plan (1) Sepsis with acute hypoxic respiratory failure and septic shock: (2) Goals of care, counseling/discussion: (3) Lactic acidosis: (4) Acute kidney injury: (5) Vomiting: (6) Small bowel obstruction: (7) Parkinson's Disease: (8) COPD (chronic obstructive pulmonary disease): Qualifiers: COPD type: unspecified COPD Qualified Code(s): J44.9 - Chronic ob structive pulmonary disease, unspecified (9) Aspiration pneumonia due to gastric secretions: Plan ASSESSMENT/PLAN:Overall: 77-year-old male MrMary Ellen Hong is admitted to ICU for hypoxic respiratory failure secondary to possible aspiration pneumonia, in the context of small bowel ileus/? SBO-post back surgery 3 days ago-intubated and transferred to ICU-currently in shock requiring 3 pressors. NEURO: #Sedation -Fentanyl gtt. and propofol gtt.; will start on Versed drip -Adjust sedation to maintain RASS -4 -CT head-unremarkable PULM: #Acute hypoxic respiratory failure secondary to aspiration -Intubated-currently on ventilator-CMV 550/8/FiO2 100%--saturating 97% -ABG showed respiratory acidosis with bicarb 21, pH 7.28. -Chest [id number] areas of bibasilar atelectasis or pneumonia; did not show any significant mucous plugging, or atelectasis or mediastinal shift which would warrant emergency bronchoscopy at this time. Certainly not contributing to his hemodynamic instability-we will defer for time being -Due to his immobilization for last 2 to 3 weeks because of his back pain as well as surgery 3 days ago-certainly PE is among differential--I am going to obtain CT with contrast -He has a prolonged expiratory phase with triggering-there is competent of auto PEEP-we will paralyze him and decrease respiratory rate to 12, reduce tidal volume to 500, decrease daytime to 0.8- -We will add deep sedation and paralytic for time being -For now will monitor vent settings and adjust according to ABG CVS: #Shock-obstructive (PE versus secondary to dynamic hyperinflation from COPD ) versus septic shock #Has history of [id number] quit 1989 with [id number] history -patient has significant vomitings prior to coming to hospital-and may have some aspiration pneumonia -However his lactic acid admission was 5.2 which has improved to 2.9 with fluids -Bedside echo showed normal LV function, mild RV dilation but the contraction looks good. Dilated IVC with no significant collapsibility. Mild pericardial effusion. Official read pending -There was some delta troponin-but given his renal failure and grossly normal LV function-ACS is less likely -Obtained CT angiogram to rule out PE given his risk factor for immobilization for last 3 to 4 weeks because of back pain followed by surgery-showed right upper lobe segmental PE with low clot burden-however there is evidence of RV st rain with abnormal RV/LV ratio and contrast reflux into the hepatic veins. -No evidence of tension pneumothorax on chest x-ray -Another concern-with his history of COPD-plan there is a possibility of dynamic hyperinflation causing obstructive shock-patient may have occult PE which may not be visible on vent machine-adjusted ventilator settings by dropping rate to 12 and tidal volume to 500. -There was reported allergy to formoterol-however patient's was unsure about it-we have to put patient on scheduled nebulizations and will give IV magnesium sulfate 2 g - reported patient having several food allergies-but he has not eaten anything for last 2 days since his surgery -Procalcitonin significantly elevated-making sepsis most likely cause of his shock -Currently requiring Levophed 30, vasopressin 0.04, phenylephrine 70 -Started on hydrocortisone 50 mg every 4 hours and given 1 amp of bicarbonate. GI: #N.p.o. for now -GI prophylaxis PPI -NGT tube in place for significant abdominal distention-possibly secondary to ileus postoperative, electrolytes are normal. RENAL: #DELAT on CKD-most likely prerenal secondary to septic shock versus postop day 2 due to increased abdominal pressures -Electrolytes within normal limits potassium 4, bicarb 23 -Worsening renal parameters -Reduced urine output -We will request nephrology consult and patient may need hemodialysis HEM: #Stable H&H #Normal WBC #Normal platelets ENDO: #Sugars abnormal ID: #septic shock with aspiration pneumonia With patient being in shock-if there is any underlying sepsis -Pancultures and tick panel pending -See if acutely elevated Procalcitonin -Started on vancomycin, aztreonam, clindamycin, doxycycline -CT chest abdomen pelvis-possible infection in lower lobes-likely aspiration pneumonia, probable enteritis; no evidence of epidural abscess Code Status: Full Disposition: ICU Critically ill: Yes MD discussed with: Family, RN, RT, hospitalist Family: Updated ICU CHECKLIST: Problem list updated Verbal orders reviewed and signed Analgesia: Fentanyl Glycemic Control: N/A Nutrition: N.p.o. Restraint Renewal (within 24 hrs): Yes Ulcer Prophylaxis: PPI Chemical Thromboprophylaxis: Prophylaxis: Heparin drip Mechanical Thromboprophylaxis: SCDs Need for Central line: Yes 4 pressors Need for Henry catheter: For urine output monitoring Consult Attestations Medical Necessity Statement: Patient is critically ill-need close ICU monitoring Time Spent in Patient Care: Greater than 35 minutes (>than 50% of time spent in counselling and/or direct pt care on unit) . Critical Care Time: The high probability of a clinically significant, sudden or life threatening deterioration of the patient's [neurology, pulmonary, cardiac, renal, infectious ] system(s) required my full and direct attention, intervention and personal management. The critical care time is as shown. This time is in addition to time spent performing any reported procedures but includes the following: [x] Data and vital sign review and interpretation [x] Patient assessment, examination and intervention [x] Documentation [x] Medication orders and management Critical Care Time (min): 125 Coding Level of Care Code 37088 Diagnoses Sepsis with acute hypoxic respiratory failure and septic shock A41.9; R65.21; J96.01 Goals of care, counseling/discussion Z71.89 Lactic acidosis E87.20 Acute kidney injury N17.9 Vomiting R11.10 Small bowel obstruction K56.609 Parkinson's Disease G20 COPD (chronic obstructive pulmonary disease) J44.9 COPD type: unspecified COPD Aspiration pneumonia due to gastric secretions J69.0 Time Spent (min) 125
--- NOTE | 2023-03-18 05:05 | PM.ACPR ---
Procedure/Consent Time out: Time Out Performed: Yes Consent: Consent for Procedure: Consent obtained from other (indicate) Procedure Narrative: Procedure: Ultrasound-guided arterial line placement; CPT code 38784 & CPT code 34902 Indication: Need for invasive BP monitoring Consent: Next of kin signed and placed in chart Site: Right eighth radial artery Anesthesia: Patient already intubated and sedated Complications: The patient tolerated the procedure well and no complications were noted. Estimated Blood Loss: minimal Plan: Arterial line to remain in place for hemodynamic monitoring. Description: With sterile-gloved hands the right wrist area was draped with sterile towels. The skin and subcutaneous tissues superficial to the right radial artery was anesthetized with 3 mL of 1% lidocaine. The radial artery was identified under ultrasound guidance. The artery was noted to be pulsatile, patent. After collateral flow was determined by Yves test, the Arrow catheter with included guide wire was advanced at a 45-degree angle with concurrent real-time ultrasound visualization of vascular needle entry into the lumen of the artery until the syringe was seen to rapidly fill with bright red blood. The needle was then held in place while the guide wire was advanced. The needle and guidewire was then removed as the arterial catheter was advanced into proper position. Bright red pulsatile blood was seen from the catheter as the tubing was being connected. The catheter was stabilized and sutured to the skin with 2- 0 silk. The catheter was then connected to the transducer with a good waveform noted on the monitor. After properly cleaning a dressing was placed over the catheter, including the insertion site. The patient tolerated the procedure well. Ultrasound guidance used: yes. EBL:5-10 cc Complications: None Jim Rebolledo MD, [facility] Pulmonary, Critical Care medicine Acute Procedures Epistaxis Control: Time out performed: Yes
[2023-03-18 05:15] LABS: Reflex Lactate Order REFLEX LACTIC ORDERD
[2023-03-18 05:46] LABS: ABG PCO2 57.6 mmHg (35-45); ABG PH Result 7.21 (7.35-7.45); Arterial Blood Gas Hematocrit 33.2 % (42-52); Base Excess ABG -5.3 mmol/L (-2.0-2.0); Base Excess VBG -5.3 mmol/L (-3.0-3.0); Blood Gas Operator Identificat JB; Blood Gas Sample Site Not specified; Blood Gas Sample Type Venous; Blood Gas Tidal Volume 0.55; Carboxyhemoglobin 0.8 %THgb (0.4-20.1); HGB O2 Sat 45.2 % (95-100); Ionized Calcium Level - ABG 1.1 mmol/L (1.1-1.4); Methemoglobin 0.6 % (0.4-1.5); Oxygen Device VENT; Oxygen Saturation ABG 45.8; PCO2 VBG 57.6 mmHg (41-51); Total Hemoglobin 10.8 g/dL (14-18); Venous Blood Gas Hematocrit 33.2 % (42-52); pH VBG 7.21 (7.32-7.42)
--- NOTE | 2023-03-18 05:46 | CTR_ITS ---
PROCEDURE INFORMATION: Exam: CTA Chest With Contrast Exam date and time: 03/18/2023 6:19 AM Age: 77 years old Clinical indication: Other: Ischemia; Shortness of breath TECHNIQUE: Imaging protocol: Computed tomographic angiography of the chest with contrast. Exam focused on the arteries. 3D rendering (Not supervised by radiologist): MIP and/or 3D reconstructed images were created by the technologist. Radiation optimization: All CT scans at this facility use at least one of these dose optimization techniques: automated exposure control; mA and/or kV adjustment per patient size (includes targeted exams where dose is matched to clinical indication); or iterative reconstruction. Contrast material: OMNI 350; Contrast volume: 100 ml; Contrast route: INTRAVENOUS (IV); REPORTING DATA: Count of CT and Cardiac NM exams in prior 12 months: This patient has received [address] and 0 known cardiac nuclear medicine studies in the 12 months prior to the current study. COMPARISON: CR (CHEST, ) 03/18/2023 2:20 AM RADIATION DOSE METRICS: Total DLP (mGy-cm): 1266.88 FINDINGS: Tubes, catheters and devices: NG tube traverses the esophagus. The tip is in the gastric lumen approximately 7.5 cm beyond the diaphragmatic hiatus. The side port lies at the diaphragmatic hiatus. The endotracheal tube tip is in the distal thoracic trachea 3.5 cm above the keeley. Pulmonary arteries: There is a filling defect in a right upper lobe segmental artery visible on axial series 8, image 235. Aorta: There is mild aortic atherosclerotic disease. Veins: There is contrast reflux into the IVC and hepatic veins. Lungs: There is dense dependent opacity in both lower lobes, greater on the left. There is asymmetric volume loss in the left lower lobe. There is decreased AP diameter of the distal trachea and central bronchi consistent with tracheobronchomalacia. Pleural spaces: No pneumothorax. No pleural effusion. Heart: Heart size is normal. There is no pericardial effusion. Heart RV/LV ratio: 1.6 (abnormal) Coronary arteries: There is moderate coronary artery calcification. Lymph nodes: There is no mediastinal or hilar lymphadenopathy. Bones/joints: There is severe degenerative disease of both shoulders. No acute fracture. Soft tissues: The extrathoracic soft tissues are unremarkable. PROCEDURE INFORMATION: Exam: CT Abdomen And Pelvis With Contrast Exam date and time: 03/18/2023 6:19 AM Age: 77 years old Clinical indication: Other: Ischemia; Shortness of breath TECHNIQUE: Imaging protocol: Computed tomography of the abdomen and pelvis with contrast. Radiation optimization: All CT scans at this facility use at least one of these dose optimization techniques: automated exposure control; mA and/or kV adjustment per patient size (includes targeted exams where dose is matched to clinical indication); or iterative reconstruction. Contrast material: OMNI 350; Contrast volume: 100 ml; Contrast route: INTRAVENOUS (IV); REPORTING DATA: Count of CT and Cardiac NM exams in prior 12 months: This patient has received [address] and 0 known cardiac nuclear medicine studies in the 12 months prior to the current study. COMPARISON: CT abdomen pelvis wo con [id number] 03/17/2023 2:11 PM RADIATION DOSE METRICS: Total DLP (mGy-cm): 1266.88 FINDINGS: Tubes, catheters and devices: Right femoral venous catheter extends into the proximal external iliac vein. Liver: The liver is normal. Gallbladder and bile ducts: The gallbladder is normal. There is no biliary dilation. Pancreas: There is mild atrophy of the pancreas. Spleen: The spleen is unremarkable. Adrenal glands: The adrenal glands are unremarkable. Kidneys and ureters: There are simple cysts in the left kidney. There is mild atrophy of both kidneys. Renal parenchymal enhancement pattern is normal. There is no hydronephrosis or stones. Stomach and bowel: The stomach is decompressed, preventing meaningful evaluation of wall thickness. The duodenum is unremarkable. Proximal small bowel is mildly dilated and fluid-filled, tapering gradually to a normal caliber mid to distal small bowel. The terminal ileum is completely decompressed. There is mucosal hyperemia and perienteric edema in the proximal jejunum. No transition point is visible in the small bowel. There is mild distal descending and sigmoid colonic diverticulosis without evidence of diverticulitis. There is a thin linear high attenuation structure in the rectum suggesting a catheter or lead. Appendix: The appendix is normal. Intraperitoneal space: There is no free air or significant intraperitoneal free fluid. Vasculature: There is moderate aortic atherosclerotic disease. The portal, splenic and superior mesenteric veins are patent. The celiac and visible portions of the superior mesenteric artery are patent. The inferior mesenteric artery is patent. Lymph nodes: There is no lymphadenopathy in the retroperitoneum, mesentery, pelvis or inguinal regions. Urinary bladder: The urinary bladder is decompressed, preventing meaningful evaluation of wall thickness. The Henry catheter is appropriately positioned with the bulb and tip within the bladder lumen. Reproductive: The prostate and seminal vesicles are unremarkable. Bones/joints: There is severe multilevel degenerative disease in the lumbar spine. L2-L3 bilateral laminectomies noted. The pelvis and hips are unremarkable. Soft tissues: There is a small fat containing umbilical hernia. CT/CT angio chest w abd pel w con IMPRESSION: 1. Right upper lobe segmental pulmonary embolism. Low clot burden. 2. Right ventricular strain (abnormal RV/LV ratio and contrast reflux into the hepatic veins). 3. Dependent opacity in both lower lobes. Some component of atelectasis is present. Superimposed infection is a possibility. 4. Satisfactory endotracheal tube position. 5. NG tube tip is positioned in the stomach. The side port is at the diaphragmatic hiatus. Consider advancing the tube 5 cm for ideal position. 6. Incidental findings above. IMPRESSION: 1. Abnormal proximal small bowel. Probable enteritis with ileus. Partial obstruction is not excluded. 2. Incidental findings above. COMMENTS: Consistent with the [employer]'s Incidental Findings Committee white paper (J Am Munira Radiol 2018): Any incidental renal lesion less than 1 cm or classified as too small to characterize, or any incidental cystic renal lesion characterized as simple-appearing, is likely benign. No follow-up imaging is recommended for these lesions per consensus recommendations based on imaging criteria.
[2023-03-18 05:48] LABS: Blood Gas Operator Identificat JB; Blood Gas Sample Site Not specified; Blood Gas Sample Type Arterial; Blood Gas Tidal Volume 0.55; Oxygen Device VENT
[2023-03-18 05:51] LABS: ABG PCO2 45.9 mmHg (35-45); ABG PH Result 7.28 (7.35-7.45); Arterial Blood Gas Hematocrit 23.3 % (42-52); Base Excess ABG -4.7 mmol/L (-2.0-2.0); HCO3 ABG 21.7 mmol/L (22-26); PO2 ABG 99.9 mmHg (80.0-100.0)
[2023-03-18] MEDS: diphenhydrAMINE 50 mg/mL SDV 1mL IVP (06:00)
--- NOTE | 2023-03-18 06:06 | CTR_ITS ---
PROCEDURE INFORMATION: Exam: CT Head Without Contrast Exam date and time: 03/18/2023 6:14 AM Age: 77 years old Clinical indication: Altered mental status/memory loss; Additional info: AMS TECHNIQUE: Imaging protocol: Computed tomography of the head without contrast. Radiation optimization: All CT scans at this facility use at least one of these dose optimization techniques: automated exposure control; mA and/or kV adjustment per patient size (includes targeted exams where dose is matched to clinical indication); or iterative reconstruction. REPORTING DATA: Count of CT and Cardiac NM exams in prior 12 months: This patient has received [address] and 0 known cardiac nuclear medicine studies in the 12 months prior to the current study. COMPARISON: CT head wo con* [id number] 04/17/2018 8:48 PM RADIATION DOSE METRICS: Total DLP (mGy-cm): 1645.02 FINDINGS: Tubes, catheters and devices: Feeding tube noted. Brain: No hemorrhage, mass effect or midline shift. No acute, major vascular distribution infarction identified. There is foci of decreased attenuation in the periventricular and subcortical white matter, likely representing chronic small vessel ischemic changes. Mild cerebral volume loss is present. No intra-axial or extra-axial fluid collection seen. Cerebral ventricles: No ventriculomegaly. Paranasal sinuses: Visualized sinuses are unremarkable. No fluid levels. Mastoid air cells: Visualized mastoid air cells are well aerated. Orbital cavities: Bilateral lens replacement noted. Bones/joints: Unremarkable. No acute fracture. Soft tissues: Unremarkable. CT/CT head wo con* [id number] IMPRESSION: No acute intracranial abnormality.
--- NOTE | 2023-03-18 07:00 | PC.NURSE ---
report received. ET tube noted. Central line to the right groin with levophed, phenylephrine and vasopressin infusing. at bedside.
--- NOTE | 2023-03-18 07:00 | XR_ITS ---
WS: [id number] Portable AP supine chest, 03/18/2023, 0702 hours Clinical Data: asp pna Comparison: Portable chest, 03/18/2023, 0222 hours. Findings: The endotracheal tube and nasogastric tube remain in the same position. There are minimal l ower lobe basilar opacities. There are monitor leads on the chest wall. No nodules, masses or effusio ns are seen. The heart is normal. The pulmonary vascularity is not increased. No pneumothorax is seen . There is minimal calcification of the aortic arch. XR/XR chest 1V portable [id number] Impression: No change from prior chest x-ray.
[2023-03-18] MEDS: magnesium sulfate premix 2 GM/50 ML PIGGYBACK IV (08:01)
[2023-03-18] MEDS: pantoprazole 40 mg SDV IVP ×2 (08:01→20:43)
[2023-03-18] MEDS: clindamycin 900 MG/50 ML PREMIX 100 MG IV (08:01)
--- NOTE | 2023-03-18 08:15 | USCV_ITS ---
Tino Hong Age: 77 Gender: M : 1945 Exam Date: 03/18/2023 10:48 Ordering Phys: Cuauhtemoc Matamoros MD Technologist: JAC Exam Location: [facility] [place] Indication: pe PROCEDURES: Venous duplex imaging was performed in bilateral lower extremities. FINDINGS: Partial non occlusive DVT right iliac vein. Evidence of acute partial deep vein thrombosis in the right posterior tibial vein with normal flow dynamics. Evidence of acute occlusive deep vein thrombosis in the left profunda vein with abnormal flow dynamics. GSV's not imaged secondary to bandages. CONCLUSIONS Acute right DVT, iliac and posterior tibial artery. Acute left DVT, deep profunda. Dr. Juanita Florez DO (Electronically Signed) Final Date: 18 March 2023 14:52 S
--- NOTE | 2023-03-18 08:16 | PC.NURSE ---
At approximately 1900 this nurse was receiving report from the [facility] nurse, ROCHELLE Puga, when the [facility] charge auditor nurse Ale requested we come to bedside with patient and general surgeon Dr. Armstrong. When we entered the room, the surgeon was placing a NG tube in the patients right nare. Once the tube was placed, it was noted that there was no suction set up in room yet. This nurse ran to find suction. The patient was hooked up to suction and immediately began putting out a large amount of dark gastric content. In approximately 10 minutes there was approximately 3L emptied. The patient was noted to have audibly wet lung sounds and showing signs of difficulty breathing. This nurse asked the charge nurse to check the patient's oxygen saturation. At this time it was 88% on RA. This nurse then left the bedside to get the patient a nasal cannula and placed the patient on 3 liters. The patient maintained an oxygen saturation of 88%, oxygen turned up to 5L. The patient continued to show signs of difficulty breathing. The patient also reported he felt he was having trouble breathing. This nurse then went to get an oxymask to place on the patient, with the NG tube placed one nare is obstructed and not delivering optimal oxygen delivery. Oxymask was placed on patient at 7L, patient's oxygen improved to 93%. This nurse felt comfortable leaving the bedside to finish getting report on other patients. When this nurse returned to bedside to check on patient, he was noted to be saturating in the 80's again. This nurse turned the oxygen up to 10L and patient maintained 90%-92%. At this time this nurse explained to the patient's with his increase in respiratory needs, there may be the possibility he may need intubated. The [facility] charge nurse returned to bedside to check on patient. This nurse was doing a nurse shift assessment and it was seen that the patient had mottling to BLE. This nurse looked at the charge with a look of concern. Dr. Armstrong was telling the patient's that the patient may have aspirated gastric content and that may be the source of the respiratory distress. This nurse noted the patient was desating into the 80's again and the patient was using more accessory muscles, increased oxygen to 15L and pushed the code blue light to get more staff at bedside to assist at 194. The code blue light was cancelled and a rapid response was called over head at 194. Physician at bedside Dr. Armstrong, gave verbal orders for fluid bolus, because the patient's BP was 66/39, O2 94% Temp 101.4 axillary, blood glucose 138. IV access was lost at this time. New IV access was obtained by this nurse with a 20 g IV in the Right wrist. Fluid bolus restarted. Patient shaved and zole pads on at 1950. Heart rate 134 sinus tach at 1952, unable to obtain a blood pressure. Levophed started at 30mg/hr. Oxygen saturation 76% on 15L oxymask, then up to 84%. 2001 30mg etomidate , 100mg succinylcholine and 200mg phenylephrine administered by CHERIE [facility] ICU charge nurse. At this time the levophed was paused for the pushes and restarted at 2002. 2002 blood pressure was 59/27. Patient intubated at 2002 with size 8 ETT. 24 at teeth. Heart rate 110 sinus tach at 2002. Manual blood pressure 150/80 at 2004. Patient transferred to ICU 8 at 2011. This nurse gave bedside report to CHERIE Peña
[2023-03-18] MEDS: rocuronium 10 mg/mL INJ 5mL 80 MG IVP (08:25)
[2023-03-18] MEDS: heparin 5,000 unit/mL INJ 1 mL IV (08:25)
[2023-03-18] MEDS: ipratropium-albuterol 3 mL Neb INHALATION ×4 (08:26→20:44)
[2023-03-18] MEDS: heparin drip 25,000 UNIT/500 ML PREMIX 29.21 UNIT IV (08:33)
[2023-03-18] MEDS: cisatracurium 100 MG in sodium chloride 0.9% 50 ML IV (08:43)
[2023-03-18 09:17] LABS: ABG PCO2 58.9 mmHg (35-45); Alveolar-Arterial Oxygen Gradi 69.3 mmHg (5-10); Arterial Blood Gas Hematocrit 32.1 % (42-52); Base Excess ABG -9.3 mmol/L (-2.0-2.0); Blood Gas Operator Identificat CAK; Blood Gas Sample Site aline; Blood Gas Sample Type Arterial; Carboxyhemoglobin 0.7 %THgb (0.4-20.1); HCO3 ABG 19.8 mmol/L (22-26); HGB O2 Sat 95.5 % (95-100); Ionized Calcium Level - ABG 1.2 mmol/L (1.1-1.4); Methemoglobin 0.8 % (0.4-1.5); Oxygen Device VENT; Potassium Level - ABG 3.1 mmol/L (3.5-5.0); Total Hemoglobin 10.5 g/dL (14-18)
[2023-03-18 09:39] LABS: Lactic Acid level (Lactate) 2.8 mmol/L (0.5-2.2)
[2023-03-18 09:40] LABS: Anion Gap 18.3 (5-19); Blood Urea Nitrogen 43 mg/dL (8-23); Calcium 7.7 mg/dL (8.5-10.5); Carbon Dioxide 19 mmol/L (22-29); Chloride 100 mmol/L (98-107); Glucose 121 mg/dL (65-115); Osmolality Calculated 290 mOsm/kg (285-295); Potassium 3.3 mmol/L (3.5-5.1); Sodium 134 mmol/L (136-145)
[2023-03-18] MEDS: propofol 1,000 MG/100 ML INJ 12.52 MG IV (09:51)
[2023-03-18] MEDS: simethicone 80 mg Chew PO ×4 (10:25→21:51)
[2023-03-18] MEDS: aztreonam 2,000 MG in sodium chloride 0.9% (plus) 100 ML 200 MG IV (10:26)
[2023-03-18] MEDS: bisacodyl 10 mg Supp PR (10:28)
[2023-03-18] MEDS: glycerin adult supp 1 EACH PR (10:29)
--- NOTE | 2023-03-18 11:04 | XR_ITS ---
WS: [id number] XR chest 1V portable [id number] REASON FOR EXAM: Post PICC insertion FINDINGS: Left arm PICC line placement. Significant overlying artifact artifact, however it appears that the ti p is well within the superior vena cava at the T4-T5 level. Findings were discussed with the x-ray technologist at the time of the interpretation. The findings w ere understood and relate to the PICC line team. XR/XR chest 1V portable [id number] IMPRESSION: Left arm PICC line placement with the tip in the superior vena cava.
--- NOTE | 2023-03-18 11:23 | PC.NURSE ---
Ultrasound at bedside. Dr. Matamoros notified of preliminary findings. PICC team also at bedside for PICC Insertion.
[2023-03-18] MEDS: phenylephrine inj 25 MG in sodium chloride 0.9% 250 ML 42.42 MG IV (11:36)
[2023-03-18] MEDS: norepinephrine 8 MG in dextrose 5 % 500 ML 228.6 MG IV (11:50)
--- NOTE | 2023-03-18 12:04 | P.CONIM_ITS ---
Providers/Reason For Consult Consulting Physician/Specialty*: [facility]/Nephrology Reason for Consult*: DELTA Attending Physician: Cuauhtemoc Matamoros MD Primary Care Provider: Meliza Pathak MD History of Present Illness History of Present Illness Tino Hong is a 77 year old male patient is a 77-year-old male with past medical history of COPD Parkinson's disease, hypertension was admitted to the hospital on 03/18/2023 due to persistent nausea and vomiting poor appetite. CT scan of the abdomen without contrast in the emergency department showed markedly distended with a fluid levels and moderate hiatal hernia. Patient was initially admitted to medical floor but has decompensated overnight and was transferred to ICU and he is currently intubated and on 3 pressors-Levophed, Logan and vasopressin. He is on 100% FiO2 currently. His renal function was 1.3 on March 04, 2023 and now his creatinine is up to 4.5 and he is oliguric. Patient also has received IV contrast this morning with CT scan. He has metabolic acidosis with a CO2 of 19 potassium is controlled. Review of Systems Narrative: Unable to obtain Medications/Allergies Home Medications Medication Instructions Recorded Confirmed Last Taken Type cholecalciferol (vitamin D3) 25 25 mcg PO DAILY 03/17/21 03/17/23 03/16/23 History mcg (1,000 unit) capsule coenzyme Q10 200 mg capsule (Co 200 mg PO DAILY 03/17/21 03/17/23 03/16/23 History Q-10) melatonin 10 mg capsule 10 mg PO DAILY 03/17/21 03/17/23 03/16/23 History epinephrine 0.3 mg/0.3 mL See Rx Instructions .Route 02/02/22 03/17/23 Unknown Rx injection, auto-injector .COMPLEX #2 ea carbidopa 25 mg-levodopa 250 mg 2 tab PO TID 02/10/22 03/17/23 03/17/23 History tablet albuterol sulfate 90 mcg/actuation 2 puff inhalation Q6H PRN 07/22/22 03/17/23 Unknown Rx aerosol inhaler shortness of breath or wheezing #8.5 grams fluticasone propionate 50 See Rx Instructions .Route 08/06/22 03/17/23 03/16/23 Rx mcg/actuation nasal .COMPLEX #16 grams spray,suspension amantadine HCl 100 mg capsule 100 mg PO Q8H 03/02/23 03/17/23 03/16/23 History hydrocodone 5 mg-acetaminophen 325 1 - 2 tab PO .Q4-6H #40 tabs 03/15/2303/17 Unknown Rx mg tablet tamsulosin 0.4 mg capsule (Flomax) 0.4 mg PO DAILY 7 days #7 caps 03/15/23 03/17/23 03/16/23 Rx amlodipine 2.5 mg tablet 2.5 mg PO DAILY 03/17/23 03/17/23 03/16/23 History atorvastatin 20 mg tablet 20 mg PO DAILY 03/17/23 03/17/23 03/16/23 History gabapentin 300 mg capsule 300 mg PO BEDTIME 03/17/23 03/17/23 03/16/23 History lisinopril 20 1 tab PO DAILY 03/17/23 03/17/23 03/16/23 History mg-hydrochlorothiazide 12.5 mg tablet meloxicam 7.5 mg tablet 7.5 mg PO BID 03/17/23 03/17/23 03/16/23 History omeprazole 20 mg capsule,delayed 20 mg PO BID 03/17/23 03/17/23 03/16/23 History release trazodone 50 mg tablet 50 mg PO BEDTIME 03/17/23 03/17/23 03/16/23 History triamterene 37.5 1 tab PO DAILY 03/17/23 03/17/23 03/16/23 History mg-hydrochlorothiazide 25 mg tablet Allergies Allergy/AdvReac Type Severity Reaction Status Date / Time budesonide [From Symbicort] Allergy Unknown Verified 03/17/23 16:01 formoterol [From Symbicort] Allergy Unknown Verified 03/17/23 16:01 ibuprofen [From Advil] Allergy Unknown Verified 03/17/23 16:01 iodine Allergy Unknown Verified 03/17/23 16:01 Penicillins Allergy Unknown Verified 03/17/23 16:01 Current Medications Generic Name Dose Route Start Last Admin Trade Name Freq PRN Reason Stop Dose Admin Albuterol/Ipratropium 3 ml 03/18/23 08:00 03/18/23 08:26 Ipratropium-Albuterol 3 Ml Neb INHALATION 3 ml Q6H.RESP YOSVANY Administration Bisacodyl 10 mg 03/18/23 09:00 03/18/23 10:28 Bisacodyl 10 Mg Supp NV 03/23/23 08:59 10 mg DAILY YOSVANY Administration Glycerin 1 each 03/18/23 09:00 03/18/23 10:29 Glycerin Adult Supp NV 03/23/23 08:59 1 each DAILY YOSVANY Administration Heparin Sodium (Porcine) 0 unit 03/18/23 07:52 03/18/23 08:25 Heparin 5,000 Unit/Ml Inj 1 Ml IV 5,300 unit PRN PRN Administration Heparin weight-base protocol Protocol Fentanyl 2,500 mcg/ Sodium 250 mls @ 0 mls/hr 03/17/23 20:30 03/18/23 10:19 Chloride IV 100 mcg/hr .Q0M YOSVANY 10 mls/hr Administration Protocol Per Protocol Vancomycin/PEG/NADA/Lysine/Water 1,500 mg in 300 mls @ 200 mls/hr 03/17/23 21:00 03/18/23 01:17 Vancocin IV Infused Q36H YOSVANY Infusion Propofol 1,000 mg in 100 mls @ 0 mls/hr 03/17/23 21:00 03/18/23 09:51 Diprivan IV 20 mcg/kg/min .Q0M YOSVANY 12.52 mls/hr Administration Protocol Per Protocol Vasopressin 100 unit/ Sodium 100 mls @ 0 mls/hr 03/17/23 21:30 03/18/23 08:09 Chloride IV 0.04 unit/min .Q0M YOSVANY 2.4 mls/hr Titration Protocol Per Protocol Norepinephrine Bitartrate 4 mg 254 mls @ 0 mls/hr 03/17/23 21:30 03/18/23 04:26 / Dextrose IV Infused .Q0M YOSVANY Titration Protocol Per Protocol Clindamycin HCl/Dextrose 900 mg in 50 mls @ 100 mls/hr 03/17/23 23:30 03/18/23 09:07 Cleocin IV Infused Q8H YOSVANY Infusion Protocol Sodium Chloride 1,000 mls @ 125 mls/hr 03/18/23 01:45 03/18/23 09:51 Sodium Chloride 0.9% IV 125 mls/hr .Q8H YOSVANY Administration Norepinephrine Bitartrate 8 mg 508 mls @ 0 mls/hr 03/18/23 02:30 03/18/23 11:50 / Dextrose IV 60 mcg/min .Q0M YOSVANY 228.6 mls/hr Administration Protocol Per Protocol Phenylephrine HCl 25 mg/ 252.5 mls @ 0 mls/hr 03/18/23 03:15 03/18/23 11:36 Sodium Chloride IV 70 mcg/min .Q0M YOSVANY 42.42 mls/hr Administration Protocol Per Protocol Doxycycline Hyclate 100 mg/ 100 mls @ 100 mls/hr 03/18/23 04:45 03/18/23 11:33 Sodium Chloride IV Infused Q12H YOSVANY Infusion Protocol Midazolam HCl 100 mg/ Sodium 100 mls @ 0 mls/hr 03/18/23 07:30 03/18/23 08:00 Chloride IV 2 mg/hr .Q0M YOSVANY 2 mls/hr Administration Protocol Per Protocol Heparin Sodium/Sodium Chloride 25,000 unit in 500 mls @ 0 mls/hr 03/18/23 08:00 03/18/23 08:33 Heparin Drip IV 14 unit/kg/hr .Q0M YOSVANY 29.21 mls/hr Administration Protocol Per Protocol Cisatracurium Besylate 100 mg/ 100 mls @ 0 mls/hr 03/18/23 08:30 03/18/23 08: 43 Sodium Chloride IV 0.3 mcg/kg/min .Q0M YOSVANY 1.88 mls/hr Administration Protocol Per Protocol Metoclopramide HCl 5 mg 03/17/23 17:50 03/17/23 18:23 Metoclopramide 5 Mg/Ml Sdv 2 Ml IVP 5 mg Q6H PRN Administration NAUSEA AND VOMITING Pantoprazole Sodium 40 mg 03/17/23 20:30 03/18/23 07:20 Pantoprazole 40 Mg Sdv IVP Not Given Q12H YOSVANY Simethicone 80 mg 03/17/23 21:00 03/18/23 10:25 Simethicone 80 Mg Chew PO 80 mg QID YOSVANY Administration PFSH Acute PFSH: Medical History COPD (chronic obstructive pulmonary disease) GERD (gastroesophageal reflux disease) Hyperlipidemia Hypertension Surgical History History of back surgery Family History Father CAD (coronary artery disease) Hypertension Sister CAD (coronary artery disease) Denies family history of Diabetes Clotting disorder Dementia Chronic kidney disease (CKD) Suicide Anesthesia complication Bleeding disorder Lung disease Cancer Stroke Social History Smoking and tobacco status: former smoker Alcohol intake: never Substance/Drug Use: never Lives independently: No Household members: spouse Marital status: Special abbe needs: No Vitals/I&O/Wt Last Vital Signs Temp 97.6 F 03/18/23 08:45 Pulse 101 H 03/18/23 09:30 Resp 14 03/18/23 11:22 BP 113/60 03/18/23 09:30 Pulse Ox 91 03/18/23 11:22 O2 Del Method Mechanical Ventilation 03/18/23 09:30 FiO2 100 03/18/23 11:22 03/17/23 03/18/23 03/18/23 22:59 06:59 14:59 Intake Total 1024.447 / 4.447 4653.162 / 6677.609 2579.613 / 2579.613 Output Total 850 / 850 Balance 1024.447 / 2024.447 3803.162 / 5827.609 2579.613 / 2579.613 Weight last 48 hrs Weight 104.326 kg Physical Exam Narrative: Patient is intubated sedated on pressors Urinary Catheter Management: Henry: Cath Placed During This Visit: yes Reason for Continuing Indwelling Catheter: Accurate Measurement of Urinary Output in Critically Ill Patients Urinary Catheter Date of Insertion: 03/17/23 Urinary Catheter Time of Insertion: 21:22 Data 03/18/23 03:14 03/18/23 09:02 Micro: Microbiology 03/17/23 21:47 Blood Culture - Preliminary Blood SPECIMEN COLLECTED 03/17/23 20:47 Blood Culture - Preliminary Blood SPECIMEN COLLECTED 03/17/23 15:10 Blood Culture - Preliminary Blood SPECIMEN COLLECTED 03/17/23 15:03 Blood Culture - Preliminary Blood SPECIMEN COLLECTED A&P Assessment and plan (1) Acute kidney injury: Plan Acute on chronic kidney disease stage III: Baseline creatinine is in the mid 1 range now has severe DELTA most likely ATN from sepsis/hypotension. Patient currently on 3 pressors on high doses He. He is oliguric with metabolic acidosis. -Given high-dose pressors currently, will not tolerate CRRT, -Electrolytes are currently stable continue to monitor closely. -Once his pressor requirement comes down, will consider CRRT -Discussed with patient's at bedside-informed her regarding overall poor prognosis and multiorgan failure -I anticipate renal function to get further worse due to contrast exposure t jevon. 2. Metabolic acidosis: Mild septic acidosis and worsening DELTA. We will give bicarbonate IV pushes 3. Sepsis with multiorgan failure: With small bowel obstruction/ileus, management per ICU and primary team Dose antibiotics per GFR less than 15 patient evaluated evaluation cart. Time spent 40 minutes Consult Attestations Medical Necessity Statement: per medicine Coding Level of Care Code [facility] Acute kidney injury N17.9
--- NOTE | 2023-03-18 12:10 | PC.NURSE ---
Triple lumen PICC placed to left basilic vein without difficulty. Pt referred for PICC placement due to need for multiple medications and pressors. Left basilic vein assessed and noted to be 4 mm, straight, and best choice for placement. Informed consent obtained from patient prior to procedure. Using sterile technique and MST, triple lumen placed x 2 sticks. First attempt did not allow guide wire to thread sufficiently. Second attempt, guide wire threaded well and catheter floated into place. Mid-arm circumference measured 10 cm from left AC 32 cm with trimmed cath length 45 cm and no external length noted. CXR confirms tip in SVC and good to use per radiologist. Catheter secured with stat lock. Insertion site covered with Biopatch and TSM. Report given to bedside nurse, Nevaeh.
[2023-03-18 13:11] LABS: Alveolar-Arterial Oxygen Gradi 74.3 mmHg (5-10); Arterial Blood Gas Hematocrit 35.1 % (42-52); Base Excess ABG -11.9 mmol/L (-2.0-2.0); Blood Gas Operator Identificat CAK; Blood Gas Sample Type Arterial; Carboxyhemoglobin 0.5 %THgb (0.4-20.1); HCO3 ABG 18.4 mmol/L (22-26); HGB O2 Sat 86.2 % (95-100); Ionized Calcium Level - ABG 1.1 mmol/L (1.1-1.4); Methemoglobin 0.5 % (0.4-1.5); Oxygen Device VENT; Oxygen Saturation ABG 87.2; PO2 ABG 67.5 mmHg (80.0-100.0); Potassium Level - ABG 3.2 mmol/L (3.5-5.0); Total Hemoglobin 11.4 g/dL (14-18)
[2023-03-18 13:17] LABS: ABG PH Result 7.08 (7.35-7.45)
[2023-03-18 13:18] LABS: ABG PCO2 62.7 mmHg (35-45)
[2023-03-18 13:19] LABS: ABG PH Result 7.14 (7.35-7.45)
[2023-03-18] MEDS: sodium bicarbonate 1 mEq/mL SDV 50mL 100 MEQ IVP (13:29)
[2023-03-18 13:36] LABS: Blood Gas Sample Site ALINE
[2023-03-18] MEDS: norepinephrine 8 MG in dextrose 5 % 500 ML 190.5 MG IV (14:29)
--- NOTE | 2023-03-18 14:50 | P.PN_ITS ---
Subjective Subjective: - Patient was examined multiple times throughout the morning, spoke to patient's at bedside, spoke to pulmonary, spoke to nephrology -Patient was examined early in the morning -Overnight patient had an episode of emesis, resulting in acute respiratory failure, emergently intubated by ER physician, patient did not require ACLS medications, nor did he lose his pulse, he was moved to the ICU, central line access placed, found to have acute respiratory failure, septic shock, acute renal failure, multiorgan failure -Patient this morning remains in septic shock, on 3 pressors -Febrile throughout the night -Remains on 100% FiO2 -Creatinine elevating, urine output has decreased -Currently on propofol, and fentanyl for sedation -Patient was seen by pulmonary early in the morning, -Patient's is at bedside -I had a detailed discussion with patient's about patient's critical status , status is critical, prognosis is guarded -Currently patient is in respiratory failure from significant aspiration event -Also was found to have a right upper lobe pulmonary embolism, low clot burden, concerns for right ventricular strain, started on heparin drip this certainly could be playing a role to patient's respiratory event -Currently he is in septic shock requiring 3 pressors on high doses of Levophed -I advised that at these high doses he has a risk of bowel ischemia, risk of cardiac events, risk of cardiac arrhythmia, risk of poor neurologic outcome -Currently he is also in cardiac stress, given his elevated troponins this could be from respiratory failure, aspiration event, pulmonary emboli -Also in septic shock, has metabolic acidosis -Respiratory failure on 100% FiO2 -Also on kidney failure, currently he does not have any significant electrolyte abnormalities but urine output is lackluster he might require dialysis or CRRT, but currently is on 3 pressors we will consult nephrology -I had a detailed discussion with patient's about patient's status she voiced understanding, all questions answered, agreed to proceed for now remains a full code -1 of patient's sons is in [facility], daughter is in [place], advised to notify them of patient's critical status -Spoke to nephrology -Patient was reexamined multiple times in the morning, remains on 3 pressors, urine output has improved to some degree -Placed on propofol, fentanyl for sedation, once sedated, placed on paralytic -Reexamined early in the afternoon, with pulmonary, with at bedside, blood pressures are more stable, urine output has improved, remains on 100% FiO2 -Reexamined during PICC line placement Vitals/I&O/Wt Last Vital Signs Temp 96.7 F L 03/18/23 12:30 Pulse 114 H 03/18/23 14:00 Resp 14 03/18/23 13:45 BP 122/75 03/18/23 13:45 Pulse Ox 94 03/18/23 13:45 O2 Del Method Mechanical Ventilation 03/18/23 13:45 FiO2 100 03/18/23 13:45 03/17/23 03/18/23 03/18/23 22:59 06:59 14:59 Intake Total 1024.447 / 4.447 4653.162 / 6677.609 3228.564 / 3228.564 Output Total 850 / 850 Balance 1024.447 / 4.447 3803.162 / 5827.609 3228.564 / 3228.564 Weight last 48 hrs Weight 104.326 kg Physical Exam Const: COMMON NORMALS: no acute distress OTHER: Currently intubated, sedated, paralytic Pupils pinpoint Endotracheal tube in place Left PICC line in place Right groin line in place Right artery line in place Resp: COMMON NORMALS: normal respiratory effort, No retractions and No use of accessory muscles AUSCULTATION: wheezes OTHER: Wheezing in all lung [place] Cardio: COMMON NORMALS: regular rhythm, S1 normal heart sound present and S2 normal heart sound present RHYTHM: regular rhythm HEART SOUNDS: S1 normal heart sound present and S2 normal heart sound present GI: OTHER: Abdomen soft, distended, decreased bowel sounds, no guarding, no rebound, no rigidity Urinary Catheter Management: Henry: Cath Placed During This Visit: yes Reason for Continuing Indwelling Catheter: Accurate Measurement of Urinary Output in Critically Ill Patients Urinary Catheter Date of Insertion: 03/17/23 Urinary Catheter Time of Insertion: 21:22 Sepsis: Is patient septic: Yes Focused sepsis exam performed: Yes Focused sepsis exam: - Mottling up to the level of bilateral knees -DP PT pulses diminished -Bilateral lower extremities cool, clammy -Capillary refill, greater than 2 seconds -Tachycardic -Tachypneic Date exam was performed: 03/18/23 Time exam was performed: 08:00 Data 03/18/23 03:14 03/18/23 09:02 Micro: Microbiology 03/18/23 00:50 Gram Stain - Final Sputum - Endotracheal Tube Aspirate 03/17/23 21:47 Blood Culture - Preliminary Blood SPECIMEN COLLECTED 03/17/23 20:47 Blood Culture - Preliminary Blood SPECIMEN COLLECTED 03/17/23 15:10 Blood Culture - Preliminary Blood SPECIMEN COLLECTED 03/17/23 15:03 Blood Culture - Preliminary Blood SPECIMEN COLLECTED A&P Assessment and plan (1) Aspiration pneumonia due to gastric secretions: (2) Sepsis with acute hypoxic respiratory failure and septic shock: (3) Ileus: (4) Goals of care, counseling/discussion: (5) Lactic acidosis: (6) Acute kidney injury: (7) Small bowel obstruction: (8) Lumbar stenosis with neurogenic claudication: (9) Pulmonary embolism: (10) Multiorgan failure: (11) Acute renal failure: (12) NSTEMI (non-ST elevated myocardial infarction): (13) DVT, bilateral lower limbs: (14) Systolic CHF: (15) Hypoalbuminemia: Plan Acute hypoxic respiratory failure -Likely a combination of aspiration pneumonia from gastric secretions -Right upper lobe pulmonary embolism Plan -Currently intubated, sedated, on 100% FiO2 -Minimize FiO2, tidal volume -On fentanyl, propofol, for the sedation -Nimbex paralytic -Monitor respiratory status closely -Currently on broad-spectrum antibiotic therapy, aztreonam, vancomycin, clindamycin, doxycycline -Follow blood cultures, respiratory cultures -Currently on heparin drip -Pulmonary on consult Aspiration pneumonia from gastric secretions as above Small bowel obstruction versus ileus -Serial abdominal exams -We will need to monitor closely given that he is on high-dose pressors, risk of ischemic bowel -Replace electrolytes -Oral gastric tube in place -General surgery consulted Right upper lobe pulmonary embolism -On heparin drip Bilateral lower extremity DVTs -Likely a postoperative complication after his back surgery -Continue heparin drip Septic shock -Currently on 3 pressors -Levophed, vasopressin, phenylephrine -Wean as tolerated -Arterial line in place -Maintain MAP greater than 65 Non-ST elevation OR -Likely combination of respiratory failure, aspiration event, right upper lobe pulmonary embolism -Continue telemetry events -Cardiac echo Technically limited quality echocardiogram because of poor ?ultrasonic windows. ?LV systolic function is mildly reduced with EF of 45-50% ?Grade 1 diastolic dysfunction ?Mild to moderate tricuspid regurgitation ?Mild pulmonary hypertension ?Compared to prior echocardiogram from 2020, LV systolic function ?has decreased slightly. -However given age of 77, cannot rule out underlying cardiac etiology -On heparin drip -We will need cardiac evaluation at some point in the near future based on clinical progress Acute renal failure -Likely a combination of septic shock, sepsis, respiratory failure, dehydration -Follow urine output, follow creatinine -Nephrology consulted Lactic acidosis -From septic shock as above Metabolic acidosis, from septic shock as above Hypoalbuminemia, replace with albumin Attestations Medical Necessity Statement*: Patient requires hospitalization for acute hypoxic respiratory failure, from aspiration pneumonia from gastric secretions, right upper lobe pulm embolism, small bowel obstruction versus ileus, right upper lobe pulm embolism, bilateral extremity DVTs, septic shock, NSTEMI, acute renal failure, lactic acidosis, metabolic acidosis, hypoalbuminemia Coding Level of Care Code Critical Care >/= 30 minutes Critical care time (in minutes): 80 The high probability of a clinically significant, sudden or life threatening deterioration, as referenced in this documentation, required my full and direct attention, intervention and personal management. The critical care time shown is in addition to time spent performing any reported separately billable procedures and includes the following: [x] Data and vital sign review and interpretation [x ] Patient assessment, examination and intervention [x] Medication orders and management [x] Patient/Family updates as able [x] Care Coordination and Documentation. Diagnoses Aspiration pneumonia due to gastric secretions J69.0 Sepsis with acute hypoxic respiratory failure and septic shock A41.9; R65.21; J96.01 Ileus K56.7 Goals of care, counseling/discussion Z71.89 Lactic acidosis E87.20 Acute kidney injury N17.9 Small bowel obstruction K56.609 Lumbar stenosis with neurogenic claudication M48.062 Pulmonary embolism I26.99 Multiorgan failure Acute renal failure N17.9 NSTEMI (non-ST elevated myocardial infarction) I21.4 DVT, bilateral lower limbs I82.403 Systolic CHF I50.20 Hypoalbuminemia E88.09
[2023-03-18 15:17] LABS: Partial Thromboplastin Time 134.2 SECONDS (23.9-36.7)
[2023-03-18] MEDS: albumin 25 G/100 ML BAG 60 G IV ×2 (15:50→23:29)
[2023-03-18] MEDS: clindamycin 600 MG/50 ML PREMIX 100 MG IV (16:08)
[2023-03-18] MEDS: clindamycin 300 MG/50 ML PREMIX 100 MG IV (16:36)
[2023-03-18 17:01] LABS: Arterial Blood Gas Hematocrit 32.7 % (42-52); Base Excess ABG -8.6 mmol/L (-2.0-2.0); Blood Gas Operator Identificat CAK; Blood Gas Sample Type Arterial; Blood Gas Tidal Volume 0.52; Carboxyhemoglobin 0.8 %THgb (0.4-20.1); HCO3 ABG 20.1 mmol/L (22-26); HGB O2 Sat 81.3 % (95-100); Methemoglobin 0.4 % (0.4-1.5); Oxygen Device VENT; Oxygen Saturation ABG 82.3; PO2 ABG 52.2 mmHg (80.0-100.0); Potassium Level - ABG 3.4 mmol/L (3.5-5.0); Total Hemoglobin 10.7 g/dL (14-18)
[2023-03-18 17:02] LABS: ABG PH Result 7.16 (7.35-7.45); Blood Gas Sample Site ALINE
[2023-03-18] MEDS: norepinephrine 8 MG in dextrose 5 % 500 ML 209.55 MG IV (17:07)
[2023-03-18] MEDS: phenylephrine inj 25 MG in sodium chloride 0.9% 250 ML 60.6 MG IV (17:34)
[2023-03-18] MEDS: EPINEPHrine 2.5 MG in sodium chloride 0.9% 250 ML 63.22 MG IV (17:36)
[2023-03-18] MEDS: dexamethasone 4 mg/mL INJ 1 MG IVP ×2 (17:39→21:51)
[2023-03-18] MEDS: FUROsemide 10 mg/mL SDV 4mL 40 MG IVP (17:39)
--- NOTE | 2023-03-18 17:57 | PM.PN ---
Subjective Subjective: Patient on vent Vitals/I&O/Wt Last Vital Signs Temp 97.6 F 03/18/23 14:30 Pulse 118 H 03/18/23 16:00 Resp 14 03/18/23 16:00 BP 94/67 03/18/23 16:00 Pulse Ox 90 03/18/23 16:00 O2 Del Method Mechanical Ventilation 03/18/23 16:00 FiO2 100 03/18/23 16:00 03/18/23 03/18/23 03/18/23 06:59 14:59 22:59 Intake Total 4653.162 / 6677.609 3228.564 / 3228.564 2050.594 / 5279.158 Output Total 850 / 850 1700 / 1700 Balance 3803.162 / 5827.609 3228.564 / 3228.564 350.594 / 3579.158 Weight last 48 hrs Weight 230 lb Physical Exam Const: COMMON NORMALS: no acute distress OTHER: Currently intubated, sedated, paralytic Pupils pinpoint Endotracheal tube in place Left PICC line in place Right groin line in place Right artery line in place Resp: COMMON NORMALS: normal respiratory effort, No retractions and No use of accessory muscles AUSCULTATION: wheezes OTHER: Wheezing in all lung [place] Cardio: COMMON NORMALS: regular rhythm, S1 normal heart sound present and S2 normal heart sound present RHYTHM: regular rhythm HEART SOUNDS: S1 normal heart sound present and S2 normal heart sound present GI: OTHER: Abdomen soft, distended, decreased bowel sounds, no guarding, no rebound, no rigidity Urinary Catheter Management: Henry: Cath Placed During This Visit: yes Reason for Continuing Indwelling Catheter: Accurate Measurement of Urinary Output in Critically Ill Patients Urinary Catheter Date of Insertion: 03/17/23 Urinary Catheter Time of Insertion: 21:22 Sepsis: Is patient septic: Yes Focused sepsis exam performed: Yes Focused sepsis exam: - Mottling up to the level of bilateral knees -DP PT pulses diminished -Bilateral lower extremities cool, clammy -Capillary refill, greater than 2 seconds -Tachycardic -Tachypneic Date exam was performed: 03/18/23 Time exam was performed: 08:00 Data 03/18/23 03:14 03/18/23 09:02 Micro: Microbiology 03/17/23 15:10 Blood Culture - Preliminary Blood NEGATIVE TO DATE 03/17/23 15:03 Blood Culture - Preliminary Blood NEGATIVE TO DATE 03/18/23 00:50 Gram Stain - Final Sputum - Endotracheal Tube Aspirate 03/17/23 21:47 Blood Culture - Preliminary Blood SPECIMEN COLLECTED 03/17/23 20:47 Blood Culture - Preliminary Blood SPECIMEN COLLECTED A&P Assessment and plan (1) Ileus: Plan Keep NG down. Initially got abut 3 liters out of NG. It has markedly decreased in amount and CT now showed collapsed, nondistend stomach. Attestations Medical Necessity Statement*: see hospitalist note Coding Level of Care Code 56931 Diagnoses Ileus K56.7
--- NOTE | 2023-03-18 18:00 | PC.NURSE ---
Pt continues to decompensate requiring increased vasopressors. Ventilator remains at 100% FIO2. Dr. Rodriguez and Dr. Rebolledo at bedside. Discussed with the severity of the patient condition at this time. Will remain a full code at this time. Patient is currently on the following drips, lasix, epinephrine, phenylephrine, vasopressin, versed, nimbex, heparin, fentanyl, levophed.
[2023-03-18 18:25] LABS: Anion Gap 20.9 (5-19); Blood Urea Nitrogen 40 mg/dL (8-23); Calcium 7.1 mg/dL (8.5-10.5); Carbon Dioxide 18 mmol/L (22-29); Chloride 95 mmol/L (98-107); Glucose 220 mg/dL (65-115); Osmolality Calculated 287 mOsm/kg (285-295); Potassium 3.9 mmol/L (3.5-5.1); Sodium 130 mmol/L (136-145)
--- NOTE | 2023-03-18 18:34 | ECG_ITS ---
[facility] Test Date: 2023-03-18 Pat Name: Tino Hong Department: Room: [facility] Gender: Male Medical Associate: : 1945 Requested By: Jim Duncan Order Number: [id number] Jose A MD: Siddharth Jenkins M.D. Measurements Intervals [place] Rate: 123 P: 0 NM: 0 QRS: -57 QRSD: 113 T: 81 QT: 366 QTc: 525 Interpretive Statements SINUS TACHYCARDIIA LOW QRS VOLTAGE IN PRECORDIAL LEADS [QRS DEFLECTION < 1.0 mV IN CHEST LEADS] INCOMPLETE RIGHT BUNDLE BRANCH BLOCK [90+ ms QRS DURATION, TERMINAL R IN V1/V2, 40+ ms S IN I/aVL/V4/V5/V6] LEFT ANTERIOR FASCICULAR BLOCK [QRS AXIS <= -45, QR IN I, RS IN II] Compared to ECG 03/18/2023 03:46:10 Incomplete right bundle-branch block now present Left anterior fascicular block now present Electronically Signed On 03-19-2023 1:09:24 CDT by Siddharth Jenkins M.D. [email or web address]
--- NOTE | 2023-03-18 18:36 | PM.PN ---
Subjective Subjective: -Work-up showed so far revealed CTA showed right upper lobe segmental PE with low clot burden and right ventricular strain. Lower lobe venous Doppler showed bilateral DVT-all consistent with possible obstructive shock. There is no evidence of massive clot-I suspect there may be microemboli in the pulmonary circulation causing worsening of afterload. Unfortunately patient is not a candidate for thrombolytic given his recent surgery. We have started patient on heparin drip, Continue Levophed, vasopressin, phenylephrine, we will add epinephrine for inotropic action His urine output has significantly picked up- Bedside echocardiogram showed significantly dilated RV with flattening of IV septum-we will give Lasix to offload RV and hope it will improve his blood pressure. Patient received with 2 bicarb for component of metabolic acidosis. Overall prognosis is very poor-however everything explained to and decision was made to continue resuscitative efforts. Medications: Reviewed: Yes Vitals/I&O/Wt Last Vital Signs Temp 97.6 F 03/18/23 14:30 Pulse 118 H 03/18/23 16:00 Resp 14 03/18/23 16:00 BP 94/67 03/18/23 16:00 Pulse Ox 90 03/18/23 16:00 O2 Del Method Mechanical Ventilation 03/18/23 16:00 FiO2 100 03/18/23 16:00 03/18/23 03/18/23 03/18/23 06:59 14:59 22:59 Intake Total 4653.162 / 6677.609 3228.564 / 3228.564 2050.594 / 5279.158 Output Total 850 / 850 1700 / 1700 Balance 3803.162 / 5827.609 3228.564 / 3228.564 350.594 / 3579.158 Weight last 48 hrs Weight 230 lb Physical Exam Urinary Catheter Management: Henry: Cath Placed During This Visit: yes Reason for Continuing Indwelling Catheter: Accurate Measurement of Urinary Output in Critically Ill Patients Urinary Catheter Date of Insertion: 03/17/23 Urinary Catheter Time of Insertion: 21:22 Data 03/18/23 03:14 03/18/23 17:56 Other Labs: Radiology Impressions Abdomen/Pelvis CT 03/17/23 13:27 IMPRESSION: 1. Markedly distended fluid-filled stomach with air-fluid level and moderate esophageal hiatal hernia. Fluid in the distal esophagus. 2. Distended fluid-filled proximal small bowel likely due to adynamic ileus considering recent surgery versus developing partial small bowel obstruction. Distal ileum appears decompressed. No definite transition point. 3. Colon appears decompressed. 4. Trace LEFT greater than RIGHT pleural fluid with bibasilar atelectasis. 5. Recent decompressive laminectomies L2-L4 with expected postoperative changes. Abdomen X-Ray 03/18/23 03:39 IMPRESSION: Moderate ileus likely. Chest/Abdomen/Pelvis CT 03/18/23 05:46 IMPRESSION: 1. Right upper lobe segmental pulmonary embolism. Low clot burden. 2. Right ventricular strain (abnormal RV/LV ratio and contrast reflux into the hepatic veins). 3. Dependent opacity in both lower lobes. Some component of atelectasis is present. Superimposed infection is a possibility. 4. Satisfactory endotracheal tube position. 5. NG tube tip is positioned in the stomach. The side port is at the diaphragmatic hiatus. Consider advancing the tube 5 cm for ideal position. 6. Incidental findings above. IMPRESSION: 1. Abnormal proximal small bowel. Probable enteritis with ileus. Partial obstruction is not excluded. 2. Incidental findings above. COMMENTS: Consistent with the [employer]'s Incidental Findings Committee white paper (J Am Munira Radiol 2018): Any incidental renal lesion less than 1 cm or classified as too small to characterize, or any incidental cystic renal lesion characterized as simple-appearing, is likely benign. No follow-up imaging is recommended for these lesions per consensus recommendations based on imaging criteria. ADDENDUM: 03/18/23 0737 THIS REPORT CONTAINS FINDINGS THAT MAY BE CRITICAL TO PATIENT CARE. The findings were verbally communicated via telephone conference with DATARSHAHLA at 7:35 AM CDT on 03/18/2023. The findings were acknowledged and understood. Head CT 03/18/23 06:06 IMPRESSION: No acute intracranial abnormality. Chest X-Ray 03/18/23 11:04 IMPRESSION: Left arm PICC line placement with the tip in the superior vena cava. Laboratory Results WBC 4.2 10^3/uL (4.0-10.0) 03/18/23 03:14 Corrected WBC Cancelled 03/17/23 21:47 RBC 3.73 10^6/uL (4.1-5.3) L 03/18/23 03:14 Hgb 11.1 g/dL (11.7-16.6) L 03/18/23 03:14 Hct 36.3 % (42.0-52.0) L 03/18/23 03:14 MCV 97.3 fl (80-94) H 03/18/23 03:14 MCH 29.8 pg (28.0-34.0) 03/18/23 03:14 MCHC 30.6 g/dL (30.0-36.0) 03/18/23 03:14 RDW 14.3 % (12.1-15.1) 03/18/23 03:14 Plt Count 250 10^3/cmm (130-400) 03/18/23 03:14 MPV 9.5 fL (7.4-10.4) 03/18/23 03:14 Gran % Cancelled 03/17/23 21:47 Neut % (Auto) 44.4 % 03/18/23 03:14 Lymph % (Auto) 43.0 % 03/18/23 03:14 Mcnairy % (Auto) 6.4 % 03/18/23 03:14 Eos % (Auto) 3.3 % 03/18/23 03:14 Baso % (Auto) 0.5 % 03/18/23 03:14 Neut # (Auto) 1.86 10^3/uL (1.8-7.7) 03/18/23 03:14 Lymph # (Auto) 1.8 10^3/uL (0.8-4.8) 03/18/23 03:14 Mcnairy # (Auto) 0.3 10^3/uL (0.2-0.9) 03/18/23 03:14 Eos # (Auto) 0.1 10^3/uL (0.0-0.8) 03/18/23 03:14 Baso # (Auto) 0.0 10^3/uL (0.0-0.1) 03/18/23 03:14 Absolute Gran (auto) Cancelled 03/17/23 21:47 Nucleated RBC % (auto) 0.5 % 03/18/23 03:14 Total Counted 100 (0-100) 03/17/23 14:02 Atypical Lymphs % 0.0 % (0-5) 03/17/23 14:02 Absolute Neutrophils 6.6 10^3/cmm (1.4-6.5) H 03/17/23 14:02 Segmented Neutrophils 73 % 03/17/23 14:02 Abs Segm Neuts (Man) 6.3 10/cmm (1.6-7.1) 03/17/23 14:02 Band Neutrophils 4.0 % 03/17/23 14:02 Abs Band Neuts (Man) 0.3 10^3/cmm (0.0-1.2) 03/17/23 14:02 Absolute Lymphocytes 0.5 10^3/cmm (1.2-3.4) L 03/17/23 14:02 Lymphocytes (Manual) 6 % 03/17/23 14:02 Monocytes (Manual) 14.0 % 03/17/23 14:02 Absolute Monocytes 1.2 10^3/cmm (0.1-0.6) H 03/17/23 14:02 Eosinophils (Manual) 0 % 03/17/23 14:02 Absolute Eosinophils 0.0 10^3/cmm (0.0-0.7) 03/17/23 14:02 Basophils (Manual) 0.0 % 03/17/23 14:02 Absolute Basophils 0.0 10^3/cmm (0.0-0.2) 03/17/23 14:02 Metamyelocytes 2.0 % 03/17/23 14:02 Myelocytes 1.0 % 03/17/23 14:02 Nucleated RBCs # 0.0 /100WBC 03/18/23 03:14 Platelet Estimate Normal (Normal) 03/17/23 14:02 Giant Platelets Trace 03/17/23 14:02 Polychromasia 1+ H 03/17/23 14:02 Macrocytosis 1+ H 03/17/23 14:02 APTT 134.2 SECONDS (23.9-36.7) H 03/18/23 14:34 Specimen Type Arterial 03/18/23 16:49 Sample Site Joanne 03/18/23 16:49 ABG pH 7.16 (7.35-7.45) L* 03/18/23 16:49 ABG pCO2 56.0 mmHg (35-45) H 03/18/23 16:49 ABG pO2 52.2 mmHg (80.0-100.0) L 03/18/23 16:49 ABG HCO3 20.1 mmol/L (22-26) L 03/18/23 16:49 ABG O2 Saturation 82.3 03/18/23 16:49 ABG Base Excess -8.6 mmol/L (-2.0-2.0) L 03/18/23 16:49 Yves Test N/a 03/18/23 16:49 VBG pH 7.21 (7.32-7.42) L 03/18/23 05:22 VBG pCO2 57.6 mmHg (41-51) H 03/18/23 05:22 VBG pO2 33.0 mmHg (25-40) 03/18/23 05:22 VBG HCO3 23.0 mmol/L (24-28) L 03/18/23 05:22 VBG Base Excess -5.3 mmol/L (-3.0-3.0) L 03/18/23 05:22 VBG Hematocrit 33.2 % (42-52) L 03/18/23 05:22 A-a O2 Gradient 77.0 mmHg (5-10) H 03/18/23 16:49 Hematocrit 32.7 % (42-52) L 03/18/23 16:49 Hgb O2 Saturation 81.3 % (95-100) L 03/18/23 16:49 Carboxyhemoglobin 0.8 %THgb (0.4-20.1) 03/18/23 16:49 Methemoglobin 0.4 % (0.4-1.5) 03/18/23 16:49 Total Hemoglobin 10.7 g/dL (14-18) L 03/18/23 16:49 Sodium 130.0 mmol/L (131-143) L 03/18/23 16:49 Potassium 3.4 mmol/L (3.5-5.0) L 03/18/23 16:49 Glucose 205.0 mg/dL (70-115) H 03/18/23 16:49 Ionized Calcium 1.0 mmol/L (1.1-1.4) L 03/18/23 16:49 O2 Delivery Device Vent 03/18/23 16:49 FiO2 100.0 % 03/18/23 16:49 Tidal Volume 0.52 03/18/23 16:49 PEEP 8.0 cmH20 03/18/23 16:49 Materials And Corrosion Engineer ID Cak 03/18/23 16:49 Sodium 130 mmol/L (136-145) L 03/18/23 17:56 Potassium 3.9 mmol/L (3.5-5.1) 03/18/23 17:56 Chloride 95 mmol/L (98-107) L 03/18/23 17:56 Carbon Dioxide 18 mmol/L (22-29) L 03/18/23 17:56 Anion Gap 20.9 (5-19) H 03/18/23 17:56 BUN 40 mg/dL (8-23) H 03/18/23 17:56 Creatinine 3.6 mg/dL (0.7-1.2) H 03/18/23 17:56 GFR Calculation Not Reportable 03/18/23 17:56 Glucose 220 mg/dL (65-115) H 03/18/23 17:56 POC Glucose 138 mg/dL (70-110) H 03/17/23 19:49 Estimat Average Glucose 137 03/18/23 03:14 Hemoglobin A1c 6.4 % (4.0-6.0) H 03/18/23 03:14 Calculated Osmolality 287 mOsm/kg (285-295) 03/18/23 17:56 Lactic Acid 2.9 mmol/L (0.5-2.2) H 03/18/23 03:14 Lactic Acid (Sepsis) 2.8 mmol/L (0.5-2.2) H 03/18/23 09:02 Lactate 2.6 mmol/L (0.5-2.2) H 03/18/23 00:56 Calcium 7.1 mg/dL (8.5-10.5) L 03/18/23 17:56 Phosphorus 3.1 mg/dL (2.5-4.5) 03/18/23 03:14 Magnesium 2.0 mg/dL (1.7-2.3) 03/18/23 17:56 Total Bilirubin 1.5 mg/dL (0.15-1.2) H 03/18/23 03:14 AST 42 U/L (0-40) H 03/18/23 03:14 ALT < 5 U/L (0-41) 03/18/23 03:14 Alkaline Phosphatase 79 U/L (40-130) 03/18/23 03:14 Creatine Kinase 260 U/L (39-308) D 03/18/23 03:14 Troponin T Baseline 69 ng/L (0-15) H 03/17/23 21:47 Troponin T 120 Minute 74.72 ng/L (0-15) H 03/17/23 23:25 Delta Troponin T 5.72 ABS# (0-10) 03/17/23 23:25 Troponin T Hi Sens 6Hr 95.36 ng/L (0-15) H 03/18/23 03:14 Troponin T Hi Sens 6Hr Delta 26.36 ng/L (0-12) H* 03/18/23 03:14 C-Reactive Protein 197.0 mg/L (0.0-4.9) H 03/18/23 03:14 Total Protein 4.6 g/dL (6.6-8.7) L 03/18/23 03:14 Albumin 2.8 g/dL (3.5-5.2) L 03/18/23 03:14 Globulin 1.8 g/dL (1.3-4.6) 03/18/23 03:14 Triglycerides 104 mg/dL (0-150) 03/18/23 03:14 Cholesterol 97 mg/dL (0-200) 03/18/23 03:14 LDL Cholesterol, Calc 33 mg/dL (50-129) L 03/18/23 03:14 HDL Cholesterol 43 mg/dL (60-100) L 03/18/23 03:14 LDL/HDL Ratio 0.77 RATIO (0.00-3.22) 03/18/23 03:14 Cholesterol/HDL Ratio 2.26 mg/dL (1.0-5.00) 03/18/23 03:14 Lipase 18 U/L (13-60) 03/17/23 14:02 Procalcitonin 47.27 ng/mL (0-0.5) H 03/18/23 03:14 TSH 0.22 uIU/mL (0.27-4.20) L 03/17/23 14:02 Urine Color Yellow (Yellow) 03/17/23 21:20 Urine Appearance Sl hazy (CLEAR) A 03/17/23 21:20 Urine pH 5 (5-7) 03/17/23 21:20 Ur Specific [place] 1.025 (1.005-1.030) 03/17/23 21:20 Urine Protein 1+ (Negative) H 03/17/23 21:20 Urine Glucose (UA) Trace (Normal) H 03/17/23 21:20 Urine Ketones 1+ (Negative) H 03/17/23 21:20 Urine Blood Neg (Negative) 03/17/23 21:20 Urine Nitrate Negative (Negative) 03/17/23 21:20 Urine Bilirubin 1+ (Negative) H 03/17/23 21:20 Urine Urobilinogen Neg mg/dL (Negative) 03/17/23 21:20 Ur Leukocyte Esterase Negative (Negative) 03/17/23 21:20 Urine RBC None /hpf (0-2) 03/17/23 21:20 Urine WBC None /hpf (0-5) 03/17/23 21:20 Ur Squamous Epith Cells None /hpf (0-5) 03/17/23 21:20 Ur Transition Epith Cell 5-10 /hpf 03/17/23 21:20 Amorphous Sediment 2+ /hpf 03/17/23 21:20 Urine Bacteria 1+ /hpf (NONE) H 03/17/23 21:20 Urine Mucus 3+ /hpf 03/17/23 21:20 Micro: Microbiology 03/17/23 15:10 Blood Culture - Preliminary Blood NEGATIVE TO DATE 03/17/23 15:03 Blood Culture - Preliminary Blood NEGATIVE TO DATE 03/18/23 00:50 Gram Stain - Final Sputum - Endotracheal Tube Aspirate 03/17/23 21:47 Blood Culture - Preliminary Blood SPECIMEN COLLECTED 03/17/23 20:47 Blood Culture - Preliminary Blood SPECIMEN COLLECTED A&P Assessment and plan (1) Sepsis with acute hypoxic respiratory failure and septic shock: (2) Goals of care, counseling/discussion: (3) Lactic acidosis: (4) Acute kidney injury: (5) Vomiting: (6) Small bowel obstruction: (7) Parkinson's Disease: (8) COPD (chronic obstructive pulmonary disease): Qualifiers: COPD type: unspecified COPD Qualified Code(s): J44.9 - Chronic obstructive pulmonary disease, unspecified (9) Aspiration pneumonia due to gastric secretions: (10) Pulmonary embolism: (11) DVT, bilateral lower limbs: (12) Asthma: Plan ASSESSMENT/PLAN:Overall: 77-year-old male MrMary Ellen Hong is admitted to ICU for hypoxic respiratory failure secondary to possible aspiration pneumonia, in the context of small bowel ileus/? SBO-post back surgery 3 days ago-intubated and transferred to ICU-currently in shock requiring 3 pressors. NEURO: #Sedation -Fentanyl gtt. and propofol gtt.; Versed drip and Nimbex -Adjust sedation to maintain RASS -4 -CT head-unremarkable PULM: #Acute hypoxic respiratory failure secondary to aspiration #Unstable PE with right ventricular dysfunction as well as bilateral lower extremity DVT #History of asthma -Intubated-currently on ventilator-CMV /FiO2 100%--saturating 87% -ABG showed respiratory acidosis with bicarb 21, pH 7.16-Vent settings adjusted -CTA 03/18/2023-RUL segmental pulmonary nonlocal burden overt right ventricular strain. Dependent opacity in both lower lobes. Some component of atelectasis. Bilateral lower extremity Doppler-DVT -With a history of asthma-and prolonged expiratory phase with triggering-there is competent of auto PEEP-paralyzed and deep sedated-adjust vent settings -For now will monitor vent settings and adjust according to ABG CVS: #Shock-obstructive (PE versus secondary to dynamic hyperinflation from COPD ) #May have component of septic shock #Has history of vxcdfl-xo-dayxuq quit 1989 with 18-[id number]-gotu history -patient has significant vomitings prior to coming to hospital-and may have some aspiration pneumonia -However his lactic acid admission was 5.2 which has improved to 2.9 with fluids -Bedside echo showed normal LV function, dilated RV with flattened interventricular septum-but the contraction looks good. Dilated IVC with no significant collapsibility. Mild pericardial effusion. Official read pending -There was some delta troponin-but given his renal failure and grossly normal LV function-ACS is less likely -CTA evidence of right upper lobe segmental pulmonary emboli-possibly causing RV overload and dysfunction -No evidence of tension pneumothorax on chest x-ray -Another concern-with his history of COPD-plan there is a possibility of dynamic hyperinflation causing obstructive shock-patient may have occult PE which may not be visible on vent machine-made event adjustments -Patient received IV magnesium sulfate 2 Mg and started on scheduled nebulizations -Procalcitonin significantly elevated-making sepsis also be a cause of his shock; however his renal dysfunction is very so may not entirely depend on procalcitonin level -Currently requiring Levophed 30, vasopressin 0.04, phenylephrine 70-we added epinephrine to improve RV contractility -We will DC hydrocortisone-wanted to start Wysz-Xunykz-oxlzvif we do not have in our formulary and so giving dexamethasone for bronchoconstriction GI: #N.p.o. for now -GI prophylaxis PPI -NGT tube in place for significant abdominal distention-possibly secondary to ileus postoperative, electrolytes are normal. Next-repeat CT abdomen pelvis showed significantly improvement in distended abdomen RENAL: #DELTA on CKD-most likely prerenal secondary to obstructive shock -Electrolytes within normal limits-no urgent indication for hemodialysis -Improving renal parameters -Improving urine output-I will start on Lasix drip to offload RV and hope to improve blood pressures -We will continue to monitor urine output, electrolytes -Nephrology on board HEM: #Stable H&H #Normal WBC #Normal platelets ENDO: #Sugars abnormal ID: #?? Septic shock with aspiration pneumonia -With patient having vomitings and bilateral lower lobe infiltrates-there is a concern for aspiration pneumonia -Pancultures and tick panel pending -See if acutely elevated Procalcitonin -Started on vancomycin, aztreonam, clindamycin, doxycycline -CT chest abdomen pelvis-possible infection in lower lobes-likely aspiration pneumonia, probable enteritis; no evidence of epidural abscess Code Status: Full Disposition: ICU Critically ill: Yes MD discussed with: Family, RN, RT, hospitalist Family: Updated Prognosis: Very poor ICU CHECKLIST: Problem list updated Verbal orders reviewed and signed Analgesia: Fentanyl Glycemic Control: N/A Nutrition: N.p.o. Restraint Renewal (within 24 hrs): Yes Ulcer Prophylaxis: PPI Chemical Thromboprophylaxis: Prophylaxis: Heparin drip Mechanical Thromboprophylaxis: SCDs Need for Central line: Yes 4 pressors Need for Henry catheter: For urine output monitoring Attestations Medical Necessity Statement*: Patient is critically ill-very poor prognosis-we will aggressive management Time Spent in Patient Care: Greater than 35 minutes Critical Care Time: the patient's?[neurology, pulmonary, cardiac, renal, infectious]?system(s) required my full and direct attention, intervention and personal management. The critical care time is as shown. This time is in addition to time spent performing any reported procedures but includes the following: [x]?Data and vital sign review and interpretation [x]?Patient assessment, examination and intervention [x]?Documentation [x]?Medication orders and management ? Critical Care Time (min): 54 Coding Level of Care Code Acute Code for Chg Fwd High Time for a total of 65 minutes, includes examining/interviewing patient, updating patient/family/other support, communicating with other healthcare providers and coordinating care Other Coding Information Prolonged care (total time indicated above or notated here) (65) Diagnoses Sepsis with acute hypoxic respiratory failure and septic shock A41.9; R65.21; J96.01 Goals of care, counseling/discussion Z71.89 Lactic acidosis E87.20 Acute kidney injury N17.9 Vomiting R11.10 Small bowel obstruction K56.609 Parkinson's Disease G20 COPD (chronic obstructive pulmonary disease) J44.9 COPD type: unspecified COPD Aspiration pneumonia due to gastric secretions J69.0 Pulmonary embolism I26.99 DVT, bilateral lower limbs I82.403 Asthma J45.909 Time Spent (min) 65
[2023-03-18] MEDS: FUROsemide 100 MG in sodium chloride 0.9% 40 ML IV (18:40)
[2023-03-18] MEDS: EPINEPHrine 0.1 mg/mL SYR 10 mL 1 MG IVP (19:06)
[2023-03-18 19:43] LABS: ABG PCO2 54.8 mmHg (35-45); Alveolar-Arterial Oxygen Gradi 77.1 mmHg (5-10); Arterial Blood Gas Hematocrit 30.1 % (42-52); Blood Gas Allen Test Pos; Blood Gas Operator Identificat MONRO; Blood Gas Sample Site Not specified; Blood Gas Sample Type Arterial; Blood Gas Tidal Volume 0.52; Carboxyhemoglobin 0.6 %THgb (0.4-20.1); HCO3 ABG 16.5 mmol/L (22-26); HGB O2 Sat 78.7 % (95-100); Methemoglobin 0.7 % (0.4-1.5); Oxygen Device VENT; Oxygen Saturation ABG 79.7; PO2 ABG 52.7 mmHg (80.0-100.0); Potassium Level - ABG 3.8 mmol/L (3.5-5.0); Total Hemoglobin 9.8 g/dL (14-18)
[2023-03-18 19:44] LABS: ABG PH Result 7.09 (7.35-7.45)
[2023-03-18] MEDS: sodium bicarbonate 8.4% 1 mEq/mL 50mL Syr 50 MEQ IVP (20:01)
[2023-03-18] MEDS: norepinephrine 8 MG in dextrose 5 % 500 ML 266.7 MG IV ×2 (20:03→23:26)
[2023-03-18] MEDS: sodium bicarbonate 150 MEQ in dextrose 5% 1,000 ML 100 MEQ IV (20:07)
--- NOTE | 2023-03-18 20:20 | XRR_ITS ---
PROCEDURE INFORMATION: Exam: XR Chest Exam date and time: 03/18/2023 8:29 PM Age: 77 years old Clinical indication: Other: Low o2; Additional info: Decreased o2 sat TECHNIQUE: Imaging protocol: Radiologic exam of the chest. Views: 1 view. COMPARISON: CR XR chest 1V portable [id number] 03/18/2023 12:50 PM FINDINGS: Tubes, catheters and devices: Intubation with tip 3 cm above the keeley. A gastric tube extends into the stomach, off the field of view. Pacemaker pad on the lower left chest. Lungs: Increased airspace opacity in the right lung base and mid lung. Stable consolidation in the medial left lung base. Pleural spaces: Unremarkable. No pleural effusion. No pneumothorax. Heart/Mediastinum: Unremarkable. No cardiomegaly. Bones/joints: Degenerative shoulders, severe on the right. XR/XR chest 1V portable [id number] IMPRESSION: Pulmonary edema versus pneumonia developing in the right lung.
[2023-03-18] MEDS: calcium gluconate 0.9% NaCL 1 GM/50 ML PREMIX IV (20:28)
[2023-03-18] MEDS: EPINEPHrine 2.5 MG in sodium chloride 0.9% 250 ML 252.89 MG IV (21:10)
[2023-03-18 21:17] LABS: Lactate (Lactic Acid level) 8.8 mmol/L (0.5-2.2)
[2023-03-18 21:21] LABS: Partial Thromboplastin Time 132.8 SECONDS (23.9-36.7)
[2023-03-18 21:37] LABS: Alanine Aminotransferase 15 U/L (0-41); Alkaline Phosphatase 67 U/L (40-130)
[2023-03-18 21:38] LABS: Albumin Level 2.3 g/dL (3.5-5.2); Aspartate Amino Transferase 70 U/L (0-40); Blood Urea Nitrogen 41 mg/dL (8-23); Carbon Dioxide 15 mmol/L (22-29); Glucose 250 mg/dL (65-115); Total Bilirubin 1.4 mg/dL (0.15-1.2); Total Protein 4.3 g/dL (6.6-8.7)
[2023-03-18] MEDS: phenylephrine inj 25 MG in sodium chloride 0.9% 250 ML 90.9 MG IV (21:42)
[2023-03-18 21:45] LABS: Anion Gap 26.7 (5-19); Chloride 91 mmol/L (98-107); Osmolality Calculated 287 mOsm/kg (285-295); Potassium 3.7 mmol/L (3.5-5.1); Sodium 129 mmol/L (136-145)
[2023-03-18] MEDS: bumetanide 25 MG in empty flexible container 1 EACH 4 MG IV (21:46)
[2023-03-18] MEDS: aztreonam 1,000 MG in sodium chloride 0.9% (plus) 50 ML 100 MG IV (21:50)
--- NOTE | 2023-03-18 23:06 | XRR_ITS ---
PROCEDURE INFORMATION: Exam: XR Chest Exam date and time: 03/18/2023 11:12 PM Age: 77 years old Clinical indication: Other vascular access device placement or adjustment; Patient HX: Check S/P RT sided hemodialysis catheter. ; Additional info: Hemodialysis placement TECHNIQUE: Imaging protocol: Radiologic exam of the chest. Views: 1 view. COMPARISON: CR (CHEST, ) 03/18/2023 8:29 PM FINDINGS: Tubes, catheters and devices: Intubation with tip approximately 3.2 cm above the keeley. A gastric tube extends into the stomach, tip beyond the field of view. New right IJ temporary dialysis catheter with tip in the proximal SVC. Stable left PICC line. Lungs: Stable airspace opacities in the right lung. Stable consolidation in the medial left lung base. Increased mild atelectasis in the left lung base. Pleural spaces: Unremarkable. No pleural effusion. No pneumothorax. Heart/Mediastinum: Unremarkable. No cardiomegaly. Bones/joints: Unremarkable. XR/XR chest 1V portable [id number] IMPRESSION: Right IJ dialysis catheter placement without pneumothorax.
[2023-03-18 23:13] LABS: ABG PCO2 57.4 mmHg (35-45); Arterial Blood Gas Hematocrit 28.2 % (42-52); Base Excess ABG -15.9 mmol/L (-2.0-2.0); Blood Gas Allen Test Pos; Blood Gas Sample Type Arterial; Carboxyhemoglobin 0.6 %THgb (0.4-20.1); HCO3 ABG 14.6 mmol/L (22-26); HGB O2 Sat 80.3 % (95-100); Methemoglobin 0.6 % (0.4-1.5); Oxygen Saturation ABG 81.3; PO2 ABG 57.6 mmHg (80.0-100.0); Potassium Level - ABG 3.8 mmol/L (3.5-5.0); Total Hemoglobin 9.2 g/dL (14-18)
[2023-03-18 23:14] LABS: ABG PH Result 7.01 (7.35-7.45); Alveolar-Arterial Oxygen Gradi 76.2 mmHg (5-10); Blood Gas Operator Identificat MONRO; Blood Gas Sample Site Not specified; Blood Gas Tidal Volume 0.52; Oxygen Device VENT
[2023-03-18] MEDS: EPINEPHrine 5 MG in sodium chloride 0.9% 500 ML 252.89 MG IV (23:17)
[2023-03-18 23:34] LABS: Albumin Level 2.4 g/dL (3.5-5.2); Anion Gap 27.7 (5-19); Blood Urea Nitrogen 40 mg/dL (8-23); Calcium 6.9 mg/dL (8.5-10.5); Carbon Dioxide 14 mmol/L (22-29); Chloride 91 mmol/L (98-107); Glucose 249 mg/dL (65-115); Potassium 3.7 mmol/L (3.5-5.1); Sodium 129 mmol/L (136-145)
[2023-03-18 23:37] LABS: Phosphorus 8.4 mg/dL (2.5-4.5)
--- NOTE | 2023-03-18 23:41 | P.PCN_ITS ---
Procedure/Consent Time out: Time Out Performed: Yes Consent: Consent for Procedure: Consent obtained from other (indicate) and Emergency procedure Procedure Narrative: Procedure:Ultrasound guided Nontunneled hemodialysis catheter - CPT CODE 03398 + CPT code 36484 Indication: Renal failure requiring hemodialysis/CRRT Time of the Procedure: 2300 [facility] Teacher(s): Jim HOOK Consent: Obtained from NOK and placed in chart; also patient need emergency hemodialysis Site: Right jugular vein Anesthesia: 5 cc 1% lidocaine without epinephrine Description: After doing timeout with patient's RN at bedside, the area of interest is prepped with chlorhexidine and draped in a sterile manner. 1% lidocaine given for local anesthesia. Under ultrasound guidance identified patent right lower vein, confirmed with compressibility and location on the medial side of noncompressible and pulsatile right femoral artery. An introducer needle was used with concurrent real-time ultrasound visualization of vascular needle entry. After desired vessel puncture, a guidewire is advanced through the needle, the needle is withdrawn. Using guidewire as the guide, achieved adequate dilation using 2 sequential di lators followed by insertion of 12 [place] 16 cm hemodialysis catheter over guidewire into the desired vessel using Seldinger technique. The guidewire is removed and all ports lizette blood and were flushed with normal saline. Caps were placed on the port, catheter was sutured in place, Biopatch applied at the catheter entry and dressed with sterile dressing. Ultrasound guidance used: Yes Placement confirmed by: Ultrasound as well as chest x-ray Complications: None. Patient tolerated procedure well Jim HOOK Pulmonary Critical Care Acute Procedures Epistaxis Control: Time out performed: Yes
[2023-03-19] VITALS (58 sets, daily range): BP systolic 0–155; BP diastolic 0–81; PULSE 0–118; RESP 0–20; TEMP 36.3–36.8; O2SAT 0–95
[2023-03-19] MEDS: sodium bicarbonate 1 mEq/mL SDV 50mL 50 MEQ IVP ×3 (00:09→05:40)
[2023-03-19] MEDS: sodium bicarbonate 1 mEq/mL SDV 50mL 25 MEQ IVP (00:33)
[2023-03-19] MEDS: sodium bicarbonate 8.4% 1 mEq/mL 50mL Syr 50 MEQ IVP ×2 (00:56→01:03)
[2023-03-19] MEDS: PrismaSol BGK 4/2.5 - 5,000 mL Bag 5000 ML CRRT ×3 (00:57)
[2023-03-19] MEDS: sodium chloride 0.9% 1,000 mL Bag 2000 ML CRRT (00:57)
[2023-03-19] MEDS: EPINEPHrine 0.1 mg/mL SYR 10 mL IVP (01:00)
[2023-03-19] MEDS: calcium chloride 10% Syr 10 mL 1 GM IVP (01:05)
[2023-03-19] MEDS: EPINEPHrine 5 MG in sodium chloride 0.9% 500 ML 252.89 MG IV ×2 (01:26→05:38)
[2023-03-19] MEDS: ipratropium-albuterol 3 mL Neb INHALATION ×2 (01:30→08:47)
--- NOTE | 2023-03-19 01:30 | P.PNCC_ITS ---
Critical Care Event Note CRRT was started at 12:57 AM. Patient's pressure started dropping and went all the way down to 47/29. He is completely mottled at this point. Epinephrine drip had to be increased to 1 robby per kilogram. Patient could not tolerate CRRT. He was given 2 A of bicarbonate, 1 g of calcium chloride and a dose of epinephrine. CRRT had to be turned off at 1:05 AM. Blood pressure starting to improve slightly. Patient remains critically ill. in the waiting room was notified of the above events. The high probability of a clinically significant, sudden or life threatening deterioration of the patient's [cardiovascular] system(s) required my full and direct attention, intervention and personal management. The critical care time is as shown. This time is in addition to time spent performing any reported procedures but includes the following: [x] Data and vital sign review and interpretation [x] Patient assessment, examination and intervention [x] Documentation [x] Medication orders and management Critical Care Time Code activated: No Critical Care Time (min): 20 Coding Level of Care Code Acute Code for [facility] Roxana
[2023-03-19] MEDS: norepinephrine 8 MG in dextrose 5 % 500 ML 266.7 MG IV ×5 (01:35→09:35)
[2023-03-19 02:14] LABS: Partial Thromboplastin Time 72.1 SECONDS (23.9-36.7)
[2023-03-19 02:31] LABS: ABG PCO2 54.8 mmHg (35-45); Arterial Blood Gas Hematocrit 26.5 % (42-52); Base Excess ABG -13.3 mmol/L (-2.0-2.0); Base Excess VBG -13.3 mmol/L (-3.0-3.0); Blood Gas Sample Type Arterial; HCO3 ABG 16.1 mmol/L (22-26); HCO3 VBG 16.1 mmol/L (24-28); PCO2 VBG 54.8 mmHg (41-51); PO2 ABG 56.1 mmHg (80.0-100.0); PO2 VBG 56.1 mmHg (25-40); Venous Blood Gas Hematocrit 26.5 % (42-52)
[2023-03-19 02:32] LABS: Blood Gas Sample Site A LINE; Blood Gas Tidal Volume 0.52; Oxygen Device VENT
[2023-03-19 02:34] LABS: Glucose Point of Care 250 mg/dL (70-110)
[2023-03-19 02:36] LABS: Basophils % 0.6 %; Eosinophils % 0.3 %; Hematocrit 27.2 % (42.0-52.0); Hemoglobin 8.3 g/dL (11.7-16.6); Lymphocytes # 0.9 10^3/uL (0.8-4.8); Lymphocytes % 26.3 %; Mean Corpuscular HGB Conc 30.5 g/dL (30.0-36.0); Mean Corpuscular Hemoglobin 29.6 pg (28.0-34.0); Mean Corpuscular Volume 97.1 fl (80-94); Mean Platelet Volume 10.2 fL (7.4-10.4); Monocytes # 0.3 10^3/uL (0.2-0.9); Monocytes % 9.1 %; Neutrophils # 1.83 10^3/uL (1.8-7.7); Nucleated Red Blood Cells # 0.2 /100WBC; Nucleated Red Blood Cells % 4.7 %; Platelet Count 157 10^3/cmm (130-400); Red Cell Distribution Width 13.9 % (12.1-15.1); White Blood Count 3.4 10^3/uL (4.0-10.0)
[2023-03-19 02:48] LABS: Slide Review Slide Review Perform
--- NOTE | 2023-03-19 03:23 | PC.NURSE ---
Stephanie, RN took over care at 2100 on 03/18/2023. HD line placed by MD Amaury (see procedure note). 2300 chest x ray ordered. datar gave verbal okay to use HD line. CRRT fluid orders received. 2346 nephrology called for critical phos level and for clarification on crrt orders. Around 0000 elsi called for BP decrease despite pressor increases. Bicarb ordered. see mar. 0028 Nephrology returned call informed of critical phos level and clarified CRRT orders. no new orders for phos CRRT should correct. 0033 additional bicarb given (see mar). CRRT started at 0057. starting BP was 112/58, HR 110, SPO2 87. Patient quickly declined 0101 BP 47/29, HR 108, SPO2 74. At 0106 two 50MeQ amps of bicarb, 0.1 epi and 1G ca chloride given. Also, EPI gtt was increased to 1mcg/kg/min (Blood was also returned and CRRT stopped at 0106. Datar called and updated on event. Nephrology called voicemail left. Elsi called and updated on event. md Elsi ordered cbc and vbg. PPT obtained. Heparin restarted at last rate of 24ml/hr. md Elsi updated on critical ph 7.08 and hemoglobin 8.3. 0357 nephrology returned call. nephrology updated on CRRT, urine outputs. no additional orders. 0517 MD Amaury called for update. pt BP soft map's in 50's, despite increase in pressors, HR 90. One 50 MeQ amp bicarb ordered (see mar). MD Elsi informed of critical phos, lactic, and CK.
[2023-03-19 04:50] LABS: Basophils % 0.9 %; Eosinophils % 0.4 %; Hematocrit 28.6 % (42.0-52.0); Hemoglobin 8.8 g/dL (11.7-16.6); Lymphocytes # 0.8 10^3/uL (0.8-4.8); Lymphocytes % 18.6 %; Mean Corpuscular HGB Conc 30.8 g/dL (30.0-36.0); Mean Corpuscular Hemoglobin 29.6 pg (28.0-34.0); Mean Corpuscular Volume 96.3 fl (80-94); Mean Platelet Volume 10.1 fL (7.4-10.4); Monocytes # 0.5 10^3/uL (0.2-0.9); Monocytes % 10.8 %; Neutrophils # 2.51 10^3/uL (1.8-7.7); Neutrophils % 56.3 %; Nucleated Red Blood Cells # 0.3 /100WBC; Nucleated Red Blood Cells % 5.8 %; Platelet Count 159 10^3/cmm (130-400); Red Blood Count 2.97 10^6/uL (4.1-5.3); Red Cell Distribution Width 13.6 % (12.1-15.1); White Blood Count 4.5 10^3/uL (4.0-10.0)
[2023-03-19 05:08] LABS: INR 3.06 (0.8-1.2)
[2023-03-19 05:10] LABS: Albumin Level 2.5 g/dL (3.5-5.2); Anion Gap 26.4 (5-19); Blood Urea Nitrogen 40 mg/dL (8-23); Calcium 6.5 mg/dL (8.5-10.5); Carbon Dioxide 17 mmol/L (22-29); Chloride 89 mmol/L (98-107); Fibrinogen 432 mg/dL (174-498); Glucose 240 mg/dL (65-115); Partial Thromboplastin Time 39.3 SECONDS (23.9-36.7); Potassium 3.4 mmol/L (3.5-5.1); Sodium 129 mmol/L (136-145)
[2023-03-19 05:11] LABS: Alanine Aminotransferase 218 U/L (0-41); Albumin Level 2.6 g/dL (3.5-5.2); Alkaline Phosphatase 82 U/L (40-130); Anion Gap 27.4 (5-19); Blood Urea Nitrogen 39 mg/dL (8-23); Calcium 6.6 mg/dL (8.5-10.5); Carbon Dioxide 17 mmol/L (22-29); Chloride 89 mmol/L (98-107); Globulin 1.7 g/dL (1.3-4.6); Glucose 248 mg/dL (65-115); Osmolality Calculated 288 mOsm/kg (285-295); Potassium 3.4 mmol/L (3.5-5.1); Sodium 130 mmol/L (136-145); Total Bilirubin 1.7 mg/dL (0.15-1.2); Total Protein 4.3 g/dL (6.6-8.7)
[2023-03-19 05:13] LABS: C Reactive Protein 223.1 mg/L (0.0-4.9)
[2023-03-19 05:20] LABS: D Dimer 4.53 ug/mIFEU (0-0.59); NT Pro B Type Natriuretic Pept 18553 pg/mL (0-450); Procalcitonin 71.76 ng/mL (0-0.5)
[2023-03-19] MEDS: cisatracurium 100 MG in sodium chloride 0.9% 50 ML 6.26 MG IV (05:23)
[2023-03-19 05:26] LABS: Phosphorus 8.2 mg/dL (2.5-4.5)
[2023-03-19 05:27] LABS: Aspartate Amino Transferase 2125 U/L (0-40); Lactate (Lactic Acid level) 10.5 mmol/L (0.5-2.2); Phosphorus 8.2 mg/dL (2.5-4.5)
[2023-03-19] MEDS: dexamethasone 4 mg/mL INJ 1 MG IVP (05:42)
[2023-03-19 05:53] LABS: Creatine Phosphokinase 576 U/L (39-308)
[2023-03-19 06:10] LABS: Hepatitis B Core AB, Total Non-Reactive (Nonreactive); Hepatitis B Surface AB 3.5 (11.5-1000); Hepatitis B Surface Antigen Non-Reactive (Nonreactive)
--- NOTE | 2023-03-19 07:00 | XRR_ITS ---
PROCEDURE INFORMATION: Exam: XR Chest Exam date and time: 03/19/2023 4:00 AM Age: 77 years old Clinical indication: Shortness of breath; Patient HX: F/u resp failure. Intubated. RT dialysis cath in place. ; Additional info: SOB TECHNIQUE: Imaging protocol: Radiologic exam of the chest. Views: 1 view. COMPARISON: 1. CR (CHEST, ) 03/18/2023 11:12 PM 2. CR (CHEST, ) 03/18/2023 8:29 PM 3. CR XR chest 1V portable [id number] 03/18/2023 12:50 PM FINDINGS: Tubes, catheters and devices: Endotracheal tube terminates approximately 3 cm above the keeley. Enteric tube courses below the left hemidiaphragm and terminates beyond the field of view. Right IJ dialysis catheter with tip in the SVC. Left upper extremity PICC is also stable in the SVC. Pacer pad remains on the left chest. Lungs: Mildly increased right lower lung patchy airspace and bandlike opacities. Stable medial left lower lung zone opacification. Increased branching left perihilar lung markings. Pleural spaces: No pneumothorax. Indistinctness of the costophrenic sulci. Heart/Mediastinum: Unremarkable. No cardiomegaly. Bones/joints: Degenerative changes of the spine and shoulders. XR/XR chest 1V portable [id number] IMPRESSION: Mildly worsened pulmonary exam may represent pneumonia, pulmonary edema and/or atelectasis. Possible small bilateral pleural effusions.
[2023-03-19] MEDS: sodium bicarbonate 150 MEQ in dextrose 5% 1,000 ML 100 MEQ IV (07:18)
[2023-03-19] MEDS: EPINEPHrine 5 MG in sodium chloride 0.9% 500 ML 316.11 MG IV (07:20)
--- NOTE | 2023-03-19 07:35 | PC.NURSE ---
Upon SHift change, nurse observed patient to be receiving approximately 800mL/ hour of combine IV medications. MOstly epinephrine and levophed which are not able to be reduced due to blood pressures. Patient also has no urine output. Lungs are starting to sound a little wet , but nurse wouldn't describe it as crackles yet, facial and bilateral arm edema is +3. NUrse alerted Dr waters.
[2023-03-19] MEDS: pantoprazole 40 mg SDV IVP (07:38)
[2023-03-19] MEDS: albumin 25 G/100 ML BAG 60 G IV (07:38)
--- NOTE | 2023-03-19 07:48 | XRR_ITS ---
PROCEDURE INFORMATION: Exam: XR Abdomen Exam date and time: 03/19/2023 7:58 AM Age: 77 years old Clinical indication: Other: Oliguria TECHNIQUE: Imaging protocol: Radiologic exam of the abdomen. Views: Frontal supine view of the abdomen. 1 View. COMPARISON: 1. CR (ABDOMEN, ) 03/18/2023 3:[address] abdomen pelvis wo con [id number] 03/17/2023 2:[address] angio chest w abd pel w con 03/18/2023 6:19 AM FINDINGS: Tubes, catheters and devices: Stable right femoral venous catheter. Thin lead stable at the rectum. Gastrointestinal tract: Decreased number of dilated small bowel loops. Bones/joints: Degenerative changes along the spine. XR/XR KUB portable [id number] IMPRESSION: Improved exam with decreased number of air-filled dilated small bowel loops.
[2023-03-19] MEDS: EPINEPHrine 10 MG in sodium chloride 0.9% 1,000 ML 316.11 MG IV (09:00)
[2023-03-19 09:51] LABS: Partial Thromboplastin Time 79.1 SECONDS (23.9-36.7)
--- NOTE | 2023-03-19 10:11 | PC.NURSE ---
COmfort care orders recieved. Nurse and RT extubated patient at 1003, nurse turned off pressors, and family was brought into. Before a minute was up, patient went into asystole, nurse verified asystole with Cristina CRESPO. Time of 1003. Nurse alerted physician.
--- NOTE | 2023-03-19 10:25 | P.PN_ITS ---
Subjective Subjective: Patient was examined multiple times throughout the morning, at bedside, also had a family meeting with Overnight CRRT was tried, developed hypotension, then stopped, dialysis catheter was also placed This morning patient remains on 4 pressors, up to 65 Levophed, lackluster urine output, currently in multiorgan failure including shock liver, acute renal failure On examination pupils are pinpoint, minimally reactive to light, intubated, sedated, on paralytic Patient is mottled diffusely Maps 60-65 Abdomen soft, distended, diminished bowel sounds diffusely Diffuse wheezing in all lung [place] I had a detailed discussion with at bedside, currently patient is in multiorgan failure, severe shock, likely multifactorial from metabolic acidosis, sepsis, cardiogenic shock, obstructive shock, persistent lactic acidosis persistent acidemia intolerance to dialysis I advised the that were giving him his large volumes of pressors which includes large volumes of fluids, is becoming fluid overloaded, which in turn is a lot of preload with increased afterload on the heart which is placing stress on the heart, causing fluid overload, pulmonary edema and with acute renal failure is not able to eliminate his fluid, his urine output is minimal, the only workaround would be to try dialysis again however he has a high risk of morbidity and mortality with dialysis overnight with CRRT, he developed significant episodes of hypotension, further hypotension will worsen his renal failure, worsen his cardiac stress, worsen shock liver I advised the that patient's prognosis is poor, status is critical, as he is on maximum dose pressors and up to 4 pressors and up to 65 Levophed, he remains on 100% FiO2, having shock liver shock kidney intolerance to dialysis I think that likelihood of him having a meaningful recovery is fairly unlikely, I do not see how this is survivable, and everything that we are doing at this point is heroic measures. As he is on such high doses of pressors he is a high likelihood of developing gut ischemia especially how his abdomen is distended this morning, I am also worried about decreased cerebral perfusion and concerns for anoxic brain injury I had a detailed discussion with and nursing staff at bedside she tells me that she understands this, and she thinks it is time she tells me that he is followed, she does not feel like he is going to recover, she was getting go to breakfast I met again with patient's , and her family family in the waiting room again I had extensive discussion about patient's goals of care, patient's current condition, patient's tells me that she spoke to her son, and she said that he would not want to live this way, that he would just want to be comfortable, and she knows that he would likely not survive, and if he did somehow miraculously recover to some degree he would have a good quality of life I had extensive discussion with the patient's about her options, continuing medical interventions, attempting dialysis, giving him time versus making him comfortable and pursuing comfort care After discussing all the risks and benefits of all options, she voiced understanding, all questions answered Agreed to proceed with comfort care, spoke to nursing staff, spoke to respiratory therapy We will go ahead and proceed with comfort care as per patient's 's wishes, she wants to let rest of family members now, spent some time at his bedside before Vitals/I&O/Wt Last Vital Signs Temp 97.3 F L 03/19/23 07:15 Pulse 0 L 03/19/23 10:15 Resp 20 H 03/19/23 08:51 BP 85/66 03/19/23 09:45 Pulse Ox 88 L 03/19/23 08:51 O2 Del Method Mechanical Ventilation 03/19/23 08:47 FiO2 100 03/19/23 08:51 03/18/23 03/19/23 03/19/23 22:59 06:59 14:59 Intake Total 4260.293 / 7488.857 3842.778 / 29620.635 3453.368 / 3453.368 Output Total 1979 / 1979 712 / 2692 Balance 2280.293 / 5508.857 3130.778 / 8639.635 3453.368 / 3453.368 Weight last 48 hrs Weight 110.903 kg Weight 104.326 kg Physical Exam Const: COMMON NORMALS: no acute distress OTHER: Endotracheal tube in place Orogastric tube in place Dialysis catheter in place PICC line in place Arterial line in place Femoral line in place Pupils pinpoint, minimally reactive to light Does not withdraw from pain Intubated, sedated on paralytic On 100% FiO2 Has mottling pale complexion, diffusely DP PT pulses bilateral lower extremities barely palpable Neck/C-Spine: COMMON NORMALS: no JVD Resp: COMMON NORMALS: normal respiratory effort, No retractions and No use of accessory muscles AUSCULTATION: wheezes Cardio: COMMON NORMALS: no JVD, regular rate, regular rhythm, S1 normal heart sound present and S2 normal heart sound present RATE: regular rate RHYTHM: regular rhythm HEART SOUNDS: S1 normal heart sound present and S2 normal heart sound present GI: OTHER: Abdomen soft, distended, diffusely decreased bowel sounds, no guarding, no rebound, no rigidity Urinary Catheter Management: Henry: Cath Placed During This Visit: yes Reason for Continuing Indwelling Catheter: Accurate Measurement of Urinary Output in Critically Ill Patients Urinary Catheter Date of Insertion: 03/17/23 Urinary Catheter Time of Insertion: 21:22 Sepsis: Is patient septic: Yes Focused sepsis exam performed: Yes Focused sepsis exam: Mottling diffusely all over Pale complexion diffusely Capillary refill greater than 3 seconds DP PT pulses not palpable at times Date exam was performed: 03/19/23 Time exam was performed: 08:00 Data 03/19/23 04:31 03/19/23 04:31 Micro: Microbiology 03/17/23 21:47 Blood Culture - Preliminary Blood NEGATIVE TO DATE 03/17/23 20:47 Blood Culture - Preliminary Blood NEGATIVE TO DATE 03/17/23 15:10 Blood Culture - Preliminary Blood NEGATIVE TO DATE 03/17/23 15:03 Blood Culture - Preliminary Blood NEGATIVE TO DATE 03/18/23 00:50 Gram Stain - Final Sputum - Endotracheal Tube Aspirate A&P Assessment and plan (1) Aspiration pneumonia due to gastric secretions: (2) Sepsis with acute hypoxic respiratory failure and septic shock: (3) Ileus: (4) Goals of care, counseling/discussion: (5) Lactic acidosis: (6) Acute kidney injury: (7) Small bowel obstruction: (8) Lumbar stenosis with neurogenic claudication: (9) Pulmonary embolism: (10) Multiorgan failure: (11) Acute renal failure: (12) NSTEMI (non-ST elevated myocardial infarction): (13) DVT, bilateral lower limbs: (14) Systolic CHF: (15) Hypoalbuminemia: (16) DIC (disseminated intravascular coagulation): (17) Obstructive cardiovascular shock: (18) Asthma: (19) Hypotension: (20) Dehydration: (21) Shock liver: (22) Metabolic acidosis: Plan Proceeding with comfort care Acute hypoxic respiratory failure -Likely a combination of aspiration pneumonia from gastric secretions -Pulmonary embolism, bilateral extremity DVT Plan -Currently intubated, sedated, on 100% FiO2 -Minimize FiO2, tidal volume -On fentanyl, propofol, for the sedation -Nimbex paralytic -Monitor respiratory status closely -Currently on broad-spectrum antibiotic therapy, aztreonam, vancomycin, clindamycin, doxycycline -Follow blood cultures, respiratory cultures -Currently on heparin drip -Pulmonary on consult Aspiration pneumonia from gastric secretions as above Small bowel obstruction versus ileus -Serial abdominal exams -We will need to monitor closely given that he is on high-dose pressors, risk of ischemic bowel -Replace electrolytes -Oral gastric tube in place -General surgery consulted Right upper lobe pulmonary embolism -On heparin drip Bilateral lower extremity DVTs -Likely a postoperative complication after his back surgery -Continue heparin drip Shock, multifactorial, septic shock, obstructive shock, cardiogenic shock -Currently on 4 pressors -Levophed, vasopressin, phenylephrine -Wean as tolerated -Arterial line in place -Maintain MAP greater than 65 Non-ST elevation [place] -Likely combination of respiratory failure, aspiration event, right upper lobe pulmonary embolism -Continue telemetry events -Cardiac echo Technically limited quality echocardiogram because of poor ?ultrasonic windows. ?LV systolic function is mildly reduced with EF of 45-50% ?Grade 1 diastolic dysfunction ?Mild to moderate tricuspid regurgitation ?Mild pulmonary hypertension ?Compared to prior echocardiogram from 2020, LV systolic function ?has decreased slightly. -However given age of 77, cannot rule out underlying cardiac etiology -On heparin drip -We will need cardiac evaluation at some point in the near future based on clinical progress Acute renal failure -Likely a combination of septic shock, sepsis, respiratory failure, dehydration -Follow urine output, follow creatinine -Nephrology consulted Lactic acidosis -From septic shock as above Metabolic acidosis, from septic shock as above, high-dose pressors Hypoalbuminemia, replace with albumin Shock liver Prognosis is poor, status is critical CODE STATUS changed to comfort care Attestations Medical Necessity Statement*: Patient requires hospitalization for acute hypoxic respiratory failure, multifactorial shock, pulm embolism, obstructive NSTEMI acute renal failure shock liver, lactic acidosis, metabolic acidosis, Coding Level of Care Code Critical Care >/= 30 minutes Critical care time (in minutes): 80 The high probability of a clinically significant, sudden or life threatening deterioration, as referenced in this documentation, required my full and direct attention, intervention and personal management. The critical care time shown is in addition to time spent performing any reported separately billable procedures and includes the following: [x] Data and vital sign review and interpretation [x ] Patient assessment, examination and intervention [x] Medication orders and management [x] Patient/Family updates as able [x] Care Coordination and Documentation. Diagnoses Aspiration pneumonia due to gastric secretions J69.0 Sepsis with acute hypoxic respiratory failure and septic shock A41.9; R65.21; J96.01 Ileus K56.7 Goals of care, counseling/discussion Z71.89 Lactic acidosis E87.20 Acute kidney injury N17.9 Small bowel obstruction K56.609 Lumbar stenosis with neurogenic claudication M48.062 Pulmonary embolism I26.99 Multiorgan failure Acute renal failure N17.9 NSTEMI (non-ST elevated myocardial infarction) I21.4 DVT, bilateral lower limbs I82.403 Systolic CHF I50.20 Hypoalbuminemia E88.09 DIC (disseminated intravascular coagulation) D65 Obstructive cardiovascular shock R57.8 Asthma J45.909 Hypotension I95.9 Dehydration E86.0 Shock liver K72.00 Metabolic acidosis E87.20
--- NOTE | 2023-03-19 10:50 | PC.NURSE ---
late note, in anticipation of likely comfort care orders, nurse turned off nimbex at 0915
[2023-03-19 10:51] LABS: ABG PH Result 7.08 (7.35-7.45); pH VBG 7.08 (7.32-7.42)
--- NOTE | 2023-03-19 10:51 | PC.NURSE ---
Comfort care orders received. Patient extubated and family brought to bedside, and pressor medications were discontinued. BLood pressurs immeadiately began to rop, wihtin a minute patient went into asystole. NUrse listened to chest for 1 minute and had a second nurse berify, no heartbeat detected. NUrse told fmaily member, Romina carbajal, that no heartbeat is detected and the patient has . NUrse left room to give fmaily privacy. Later fmaily approached nurse and requested to use [facility] as a home. NUrse called [facility], spoke to Zackery and provided requested information. Reference number is [id number]. Was instructed to take patient to [facility] [place].
--- NOTE | 2023-03-19 12:51 | P.DES_ITS ---
Discharge Providers DDS Date of Admission: 03/17/23 15:37 Date Summary Completed: 03/30/23 Attending Provider at Admission: Cuauhtemoc Matamoros MD Time of : 10:11 Attending Provider at Discharge: Cuauhtemoc Matamoros MD Consults: Tinobrody Hong is a 77 year old male with a past medical history of hypertension, COPD, hyperlipidemia, recent history of laminectomy and partial facetectomy, L2-L5 by Dr. Lucio, on Tuesday, for lumbar stenosis and neurogenic claudication, who presents [facility] due to nausea, vomiting, poor appetite, lack of stooling, decreased urination, lightheadedness, dizziness, malaise.? Patient tells me that since surgery, he has had a poor appetite, he has had recurrent nausea, vomiting, which has been brown-green, inability to keep down solids and liquids, poor appetite, diffuse abdominal pain, lack of stooling, increased abdominal distention, decreased urination, no dysphagia, no odynophagia, no shortness of breath, no chest pain, no bloody or black stools, no hematemesis, he is passing gas from below, he has never had any abdominal surgeries, no history of ileus or bowel obstruction, his tells me that he has had any bowel movement since Tuesday, she did give him for laxatives yesterday without a lack of bowel movement, no new medications, he has held the meloxicam since for the last 2 weeks, no dysuria, she tells me that after surgery, he did have urinary retention requiring his Henry catheter to be put back in bed before he was discharged it was removed and he urinated, in the emergency room patient was found to have hypotension, lactic acid of 5.2 creatinine of 2.8, CT scan showed distended fluid-filled stomach with air-fluid level, fluid-filled proximal small bowel, adynamic ileus considering recent surgery versus developing partial small bowel obstruction, hospitalist team was called, during my examination, patient continued to have episodes of nausea and vomiting, blood pressures 124/73, pulse 107, respiratory 20, on room air, alert and oriented x4, following all commands, spoke to general surgery, for consultation for concerns for developing bowel obstruction, ER provider had advised me that they will place an NG tube, patient will be kept n.p.o., given elevated creatinine will be continued on IV fluids, with concerns for possible UTI will obtain UA, elevated lactic acid of 5.2 likely sec to dehydration, but concerns for underlying sepsis possible UTI, obtain UA Primary Care Provider: Meliza Pathak MD DS Diagnoses Hospital Diagnoses (1) Aspiration pneumonia due to gastric secretions: (2) Sepsis with acute hypoxic respiratory failure and septic shock: (3) Ileus: (4) Goals of care, counseling/discussion: (5) Lactic acidosis: (6) Acute kidney injury: (7) Small bowel obstruction: (8) Lumbar stenosis with neurogenic claudication: (9) Pulmonary embolism: (10) Multiorgan failure: (11) Acute renal failure: (12) NSTEMI (non-ST elevated myocardial infarction): (13) DVT, bilateral lower limbs: (14) Systolic CHF: (15) Hypoalbuminemia: (16) DIC (disseminated intravascular coagulation): (17) Obstructive cardiovascular shock: (18) Asthma: (19) Hypotension: (20) Dehydration: (21) Shock liver: (22) Metabolic acidosis: Reason for Visit Reason for Visit dehydrated Summary Date and Time of Date of : 03/19/23 Time of : 10:11 Summary Summary: Tino Hong is a 77 year old male with a past medical history of hypertension, COPD, hyperlipidemia, recent history of laminectomy and partial facetectomy, L2-L5 by Dr. Lucio, on Tuesday, for lumbar stenosis and neurogenic claudication, who presents [facility] due to nausea, vomiting, poor appetite, lack of stooling, decreased urination, lightheadedness, dizziness, malaise.? Patient tells me that since surgery, he has had a poor appetite, he has had recurrent nausea, vomiting, which has been brown-green, inability to keep down solids and liquids, poor appetite, diffuse abdominal pain, lack of stooling, increased abdominal distention, decreased urination, no dysphagia, no odynophagia, no shortness of breath, no chest pain, no bloody or black stools, no hematemesis, he is passing gas from below, he has never had any abdominal surgeries, no history of ileus or bowel obstruction, his tells me that he has had any bowel movement since Tuesday, she did give him for laxatives yes terday without a lack of bowel movement, no new medications, he has held the meloxicam since for the last 2 weeks, no dysuria, she tells me that after surgery, he did have urinary retention requiring his Henry catheter to be put back in bed before he was discharged it was removed and he urinated, in the emergency room patient was found to have hypotension, lactic acid of 5.2 creatinine of 2.8, CT scan showed distended fluid-filled stomach with air-fluid level, fluid-filled proximal small bowel, adynamic ileus considering recent surgery versus developing partial small bowel obstruction, hospitalist team was called, during my examination, patient continued to have episodes of nausea and vomiting, blood pressures 124/73, pulse 107, respiratory 20, on room air, alert and oriented x4, following all commands, spoke to general surgery, for consultation for concerns for developing bowel obstruction, ER provider had advised me that they will place an NG tube, patient will be kept n.p.o., given elevated creatinine will be continued on IV fluids, with concerns for possible UTI will obtain UA, elevated lactic acid of 5.2 likely sec to dehydration, but concerns for underlying sepsis possible UTI, obtain UA Patient was admitted to [facility] for concerns for partial small bowel obstruction, developed significant aspiration event, with acute hypoxic respiratory failure and respiratory distress, emergently intubated, transferred to ICU, placed on multiple pressors, pulmonary critical care was consulted, further work-up revealed unstable PE with right ventricular dysfunction and bilateral lower extremity DVTs, with shock, multifactorial from sepsis, obstructive shock, he was monitored in the ICU, remain in respiratory failure, requiring 100% FiO2, requiring up to 4 pressors, with multiorgan failure, Patient was examined multiple times throughout the morning, at bedside, also had a family meeting with Overnight CRRT was tried, developed hypotension, then stopped, dialysis catheter was also placed This morning patient remains on 4 pressors, up to 65 Levophed, lackluster urine output, currently in multiorgan failure including shock liver, acute renal failure On examination pupils are pinpoint, minimally reactive to light, intubated, sedated, on paralytic Patient is mottled diffusely Maps 60-65 Abdomen soft, distended, diminished bowel sounds diffusely Diffuse wheezing in all lung trin[place] I had a detailed discussion with at bedside, currently patient is in multiorgan failure, severe shock, likely multifactorial from metabolic acidosis, sepsis, cardiogenic shock, obstructive shock, persistent lactic acidosis persistent acidemia intolerance to dialysis I advised the that were giving him his large volumes of pressors which includes large volumes of fluids, is becoming fluid overloaded, which in turn is a lot of preload with increased afterload on the heart which is placing stress on the heart, causing fluid overload, pulmonary edema and with acute renal failure is not able to eliminate his fluid, his urine output is minimal, the only workaround would be to try dialysis again however he has a high risk of morbidity and mortality with dialysis overnight with CRRT, he developed significant episodes of hypotension, further hypotension will worsen his renal failure, worsen his cardiac stress, worsen shock liver I advised the that patient's prognosis is poor, status is critical, as he is on maximum dose pressors and up to 4 pressors and up to 65 Levophed, he remains on 100% FiO2, having shock liver shock kidney intolerance to dialysis I think that likelihood of him having a meaningful recovery is fairly unlikely, I do not see how this is survivable, and everything that we are doing at this point is heroic measures.? As he is on such high doses of pressors he is a high likelihood of developing gut ischemia especially how his abdomen is distended this morning, I am also worried about decreased cerebral perfusion and concerns for anoxic brain injury I had a detailed discussion with and nursing staff at bedside she tells me that she understands this, and she thinks it is time she tells me that he is followed, she does not feel like he is going to recover, she was getting go to breakfast I met again with patient's , and her family family in the waiting room again I had extensive discussion about patient's goals of care, patient's current condition, patient's tells me that she spoke to her son, and she said that he would not want to live this way, that he would just want to be comfortable, and she knows that he would likely not survive, and if he did somehow miraculously recover to some degree he would have a good quality of life I had extensive discussion with the patient's about her options, continuing medical interventions, attempting dialysis, giving him time versus making him comfortable and pursuing comfort care After discussing all the risks and benefits of all options, she voiced understanding, all questions answered Agreed to proceed with comfort care, spoke to nursing staff, spoke to respiratory therapy We will go ahead and proceed with comfort care as per patient's 's wishes, she wants to let rest of family members now, spent some time at his bedside before Acute hypoxic respiratory failure -Likely a combination of aspiration pneumonia from gastric secretions -Pulmonary embolism, bilateral extremity DVT Plan -Currently intubated, sedated, on 100% FiO2 -Minimize FiO2, tidal volume -On fentanyl, propofol, for the sedation -Nimbex paralytic -Monitor respiratory status closely -Currently on broad-spectrum antibiotic therapy, aztreonam, vancomycin, clindamycin, doxycycline -Follow blood cultures, respiratory cultures -Currently on heparin drip -Pulmonary on consult Aspiration pneumonia from gastric secretions as above Small bowel obstruction versus ileus -Serial abdominal exams -We will need to monitor closely given that he is on high-dose pressors, risk of ischemic bowel -Replace electrolytes -Oral gastric tube in place -General surgery consulted Right upper lobe pulmonary embolism -On heparin drip Bilateral lower extremity DVTs -Likely a postoperative complication after his back surgery -Continue heparin drip Shock, multifactorial, septic shock, obstructive shock, cardiogenic shock -Currently on 4 pressors -Levophed, vasopressin, phenylephrine -Wean as tolerated -Arterial line in place -Maintain MAP greater than 65 Non-ST elevation IL -Likely combination of respiratory failure, aspiration event, right upper lobe pulmonary embolism -Continue telemetry events -Cardiac echo Technically limited quality echocardiogram because of poor ?ultrasonic windows. ?LV systolic function is mildly reduced with EF of 45-50% ?Grade 1 diastolic dysfunction ?Mild to moderate tricuspid regurgitation ?Mild pulmonary hypertension ?Compared to prior echocardiogram from 2020, LV systolic function ?has decreased slightly. -However given age of 77, cannot rule out underlying cardiac etiology -On heparin drip -We will need cardiac evaluation at some point in the near future based on clinical progress Acute renal failure -Likely a combination of septic shock, sepsis, respiratory failure, dehydration -Follow urine output, follow creatinine -Nephrology consulted Lactic acidosis -From septic shock as above Metabolic acidosis, from septic shock as above, high-dose pressors Hypoalbuminemia, replace with albumin Shock liver Prognosis is poor, status is critical CODE STATUS changed to comfort care Additional Data Confirmation of as documented by pronouncing clinician: no pulse, no respirations and pupils fixed and dilated Family: at bedside Additional persons at bedside: nursing staff Attending/PCP notified?: I am attending Was code activated?: No Autopsy requested?: No Advance directives?: No Discharge Plan Discharge Patient Disposition: Condition: Stable Probable Cause of Probable cause of : Cardiac arrest DS Attestations Time Spent in /Discharge Care*: critical care time Critical Care Time (min): 45 Quality - AMI: AMI present?: No Quality - Stroke: CVA present?: No Symptom Onset Unknown: No Quality - VTE: VTE present?: Yes Deep Vein Thrombosis/Pulmonary Embolism Present on Admission: No Coding Level of Care Code Critical Care >/= 30 minutes Critical care time (in minutes): 45 The high probability of a clinically significant, sudden or life threatening deterioration, as referenced in this documentation, required my full and direct attention, intervention and personal management. The critical care time shown is in addition to time spent performing any reported separately billable procedures and includes the following: [x] Data and vital sign review and interpretation [x ] Patient assessment, examination and intervention [x] Medication orders and management [x] Patient/Family updates as able [x] Care Coordination and Documentation. Diagnoses Aspiration pneumonia due to gastric secretions J69.0 Sepsis with acute hypoxic respiratory failure and septic shock A41.9; R65.21; J96.01 Ileus K56.7 Goals of care, counseling/discussion Z71.89 Lactic acidosis E87.20 Acute kidney injury N17.9 Small bowel obstruction K56.609 Lumbar stenosis with neurogenic claudication M48.062 Pulmonary embolism I26.99 Multiorgan failure Acute renal failure N17.9 NSTEMI (non-ST elevated myocardial infarction) I21.4 DVT, bilateral lower limbs I82.403 Systolic CHF I50.20 Hypoalbuminemia E88.09 DIC (disseminated intravascular coagulation) D65 Obstructive cardiovascular shock R57.8 Asthma J45.909 Hypotension I95.9 Dehydration E86.0 Shock liver K72.00 Metabolic acidosis E87.20
--- NOTE | 2023-03-19 17:03 | PM.PN ---
Subjective Subjective: On vent Vitals/I&O/Wt Last Vital Signs Temp 97.3 F L 03/19/23 10:56 Pulse 0 L 03/19/23 10:56 Resp 0 L 03/19/23 10:56 BP 0/0 03/19/23 10:56 Pulse Ox 0 L 03/19/23 10:56 O2 Del Method Mechanical Ventilation 03/19/23 08:47 FiO2 100 03/19/23 08:51 03/19/23 03/19/23 03/19/23 06:59 14:59 22:59 Intake Total 3842.778 / 12178.635 3453.368 / 3453.368 Output Total 712 / 2692 Balance 3130.778 / 8639.635 3453.368 / 3453.368 Weight last 48 hrs Weight 244 lb 8 oz Physical Exam Const: COMMON NORMALS: no acute distress OTHER: Endotracheal tube in place Orogastric tube in place Dialysis catheter in place PICC line in place Arterial line in place Femoral line in place Pupils pinpoint, minimally reactive to light Does not withdraw from pain Intubated, sedated on paralytic On 100% FiO2 Has mottling pale complexion, diffusely DP PT pulses bilateral lower extremities barely palpable Neck/C-Spine: COMMON NORMALS: no JVD Resp: COMMON NORMALS: normal respiratory effort, No retractions and No use of accessory muscles AUSCULTATION: wheezes Cardio: COMMON NORMALS: no JVD, regular rate, regular rhythm, S1 normal heart sound present and S2 normal heart sound present RATE: regular rate RHYTHM: regular rhythm HEART SOUNDS: S1 normal heart sound present and S2 normal heart sound present GI: OTHER: Abdomen soft, distended, diffusely decreased bowel sounds, no guarding, no rebound, no rigidity Urinary Catheter Management: Henry: Cath Placed During This Visit: yes Reason for Continuing Indwelling Catheter: Accurate Measurement of Urinary Output in Critically Ill Patients Urinary Catheter Date of Insertion: 03/17/23 Urinary Catheter Time of Insertion: 21:22 Sepsis: Is patient septic: Yes Focused sepsis exam performed: Yes Focused sepsis exam: Mottling diffusely all over Pale complexion diffusely Capillary refill greater than 3 seconds DP PT pulses not palpable at times Date exam was performed: 03/19/23 Time exam was performed: 08:00 Data 03/19/23 04:31 03/19/23 04:31 Micro: Microbiology 03/18/23 00:50 Gram Stain - Final Sputum - Endotracheal Tube Aspirate Sputum Culture - Preliminary Gram Negative Rods 03/17/23 21:20 Urine Culture - Preliminary Urine,Voided 03/17/23 21:47 Blood Culture - Preliminary Blood NEGATIVE TO DATE 03/17/23 20:47 Blood Culture - Preliminary Blood NEGATIVE TO DATE 03/17/23 15:10 Blood Culture - Preliminary Blood NEGATIVE TO DATE 03/17/23 15:03 Blood Culture - Preliminary Blood NEGATIVE TO DATE A&P Assessment and plan (1) Ileus: Unfortunately patient succumbed to PE and LA and respiratory and kidney and liver failure. He had multiorgan system failure. Attestations Medical Necessity Statement*: see hospitalist note Coding Level of Care Code 82005 Diagnoses Ileus K56.7
[2023-03-21 10:34] LABS: Lyme AB Screen <0.90 index
[2023-03-23 17:25] LABS: E. Chaffeensis AB IGG <1:64; E. Chaffeensis AB IGM <1:20
[2023-03-25 16:24] LABS: RMSF IGG NOT DETECTED; RMSF IGM NOT DETECTED
== END 2023-03-19 18:00 | disposition expired | DRG 871 ==
LOC: ER 15:41 → MEDSURG 17:15 → ICU 20:15
PROVIDERS: Hospitalist; Internal Medicine; Internal Medicine Pulmonary Disease; Admitting Provider Family Medicine; Emergency Provider Emergency Medicine; PCP Family Medicine; Visit Provider Family Medicine
DX: A41.9 Sepsis, unspecified organism (principal); D65 Disseminated intravascular coagulation [defibrination syndrome]; I21.4 Non-ST elevation (NSTEMI) myocardial infarction; R65.21 Severe sepsis with septic shock; I26.99 Other pulmonary embolism without acute cor pulmonale; J69.0 Pneumonitis due to inhalation of food and vomit; J96.01 Acute respiratory failure with hypoxia; K72.00 Acute and subacute hepatic failure without coma; K56.0 Paralytic ileus; E87.20 Acidosis, unspecified; N17.9 Acute kidney failure, unspecified; K56.609 Unspecified intestinal obstruction, unspecified as to partial versus complete obstruction; I82.421 Acute embolism and thrombosis of right iliac vein; I82.441 Acute embolism and thrombosis of right tibial vein; I82.492 Acute embolism and thrombosis of other specified deep vein of left lower extremity; I13.0 Hypertensive heart and chronic kidney disease with heart failure and stage 1 through stage 4 chronic kidney disease, or unspecified chronic kidney disease; R57.0 Cardiogenic shock; K72.90 Hepatic failure, unspecified without coma; N18.30 Chronic kidney disease, stage 3 unspecified; I50.810 Right heart failure, unspecified; E88.09 Other disorders of plasma-protein metabolism, not elsewhere classified; Z51.5 Encounter for palliative care; G20 Parkinson's disease; J34.2 Deviated nasal septum; K59.00 Constipation, unspecified; Z98.1 Arthrodesis status; Z87.891 Personal history of nicotine dependence; E78.2 Mixed hyperlipidemia; K21.9 Gastro-esophageal reflux disease without esophagitis; E86.0 Dehydration; I95.9 Hypotension, unspecified; J44.9 Chronic obstructive pulmonary disease, unspecified
CPT/HCPCS: 36415; 36416; 36569; 36592; 36600; 51702; 51798; 70450; 71045; 71275; 74018; 74176; 74177; 80048; 80051; 80053; 80061; 80069; 81001; 82330; 82550; 82803; 82805; 82962; 83036; 83605; 83690; 83735; 83880; 84100; 84145; 84443; 84484; 85007; 85025; 85362; 85378; 85384; 85610; 85730; 86140; 86618; 86666; 86704; 86706; 86757; 87040; 87070; 87077; 87086; 87186; 87205; 87340; 93005; 93306; 93970; 94002; 94003; 94640; 94664; 94799; 96361; 96374; 96376; 99285; C1751; C9113; J0131; J0171; J0610; J1100; J1200; J1642; J1644; J1720; J1940; J2060; J2250; J2371; J2405; J2704; J2765; J3010; J3370; J3475; J3490; J7030; J7040; J7042; J7050; J7060; J7070; P9046; Q3014; Q9967